=== PATIENT | female | born 1940 | race Caucasian/White ===

== ENCOUNTER → 2016-03-29 | Outpatient (CLI) | payer MEDICARE, OTHER ==
[~2016-03-29] MED LIST: /TIOT18INH INH; ALBUTEROL INH; ALTA1.25 OR; ALTACE; AMIT8CAP4 PO; ASPI81TA63; ASPI81TA83 OR; ENTO3CAP5 PO; LEVO25TA5 PO; LIDO5DIS36 TD; MAGN400C2 PO; MULTCAP PO; PRIL40CA PO; PRIM50TA6 PO; PROT20TA11 OR; PROTPAK; RAMI10CA PO; VIT D 2000 OR; VITA10002 PO; VITA100T5 OR; VITAMIN D50000 UNT; ZOCO5TAB OR; ZOCOR; [UNRECOGNIZED DRUG - OTHER]; calcium with D OR; duoneb INH; spiriva INH; triamcinolone TOP
--- NOTE | 2016-03-29 16:15 | REP ---
CHEST X-RAY, PA AND LATERAL: 03/29/2016. Comparison: CT chest 09/15/2015, chest x-ray 11/20/2014, 02/25/2014. Clinical history: Acute laryngotracheitis. Findings: A dual lead pacer over the left midchest with leads in the right atrium and right ventricle, unchanged. Underlying interstitial fibrosis throughout the chest, greatest in the lower lung zones. There is no pleural effusion, lateral pleural thickening, apical scarring or pneumothorax. Some minor apical pleural thickening noted, without change. There is no superimposed acute infiltrate, cardiomegaly or edema. No aortic aneurysm. There are some calcifications in the arch. Airway intact. Bony thorax shows no compression deformity. Impression: 1. COPD with interstitial fibrotic changes heaviest in the bases, but diffuse and unchanged from previous study. No superimposed acute infiltrate, atelectasis or pleural effusion. 2. There is no cardiomegaly. A dual lead pacer is again seen and unchanged. Signed by Max Ferguson MD 03/29/2016 05:06 P
== END ==
LOC: M RAD 15:07
PROVIDERS: ATTEND Physician Assistant Medical
DX: J44.9 Chronic obstructive pulmonary disease, unspecified (principal); J84.9 Interstitial pulmonary disease, unspecified; J04.2 Acute laryngotracheitis
CPT/HCPCS: 36415; 71020; 80048; 85025; G0463

== ENCOUNTER → 2016-03-29 | Outpatient (REF) | payer MEDICARE, OTHER ==
[2016-03-29 17:27] LABS: BASO % 0.7 % (0.0-1.0); EOS # 0.1 K/mm3 (0.0-0.50); EOS % 2.1 % (0.0-3.0); LARGE UNSTAINED CELL # 0.2 K/mm3 (0.0-0.4); LARGE UNSTAINED CELL % 2.8 % (0.0-4.0); LYMPH % 17.9 % (24.0-44.0); MEAN CORPUSCULAR HEMOGLOBIN 30.2 pg (27.0-33.0); MEAN CORPUSCULAR HGB CONC 32.5 g/dl (32.0-36.5); MEAN CORPUSCULAR VOLUME 92.9 fl (80.0-96.0); MONO # 0.5 K/mm3 (0.0-0.8); MONO % 8.7 % (0.0-5.0); NEUTROPHILS # 3.6 K/mm3 (1.8-7.7); NEUTROPHILS % 67.8 % (36.0-66.0); PLATELET COUNT, AUTOMATED 237 k/mm3 (150-450); RED CELL DISTRIBUTION WIDTH 13.4 % (11.5-14.5); WHITE BLOOD COUNT 5.4 K/mm3 (4.0-10.0)
[2016-03-29 18:43] LABS: ANION GAP 11 MEQ/L (8-16); BLOOD UREA NITROGEN 12 MG/DL (7-18); CALCIUM LEVEL 9.2 MG/DL (8.8-10.2); CARBON DIOXIDE LEVEL 29 MEQ/L (21-32); CHLORIDE LEVEL 92 MEQ/L (98-107); CREATININE FOR GFR 0.81 MG/DL (0.55-1.02); GLOMERULAR FILTRATION RATE > 60.0 (>39); GLUCOSE, FASTING 109 MG/DL (83-110); POTASSIUM SERUM 3.9 MEQ/L (3.5-5.1); SODIUM LEVEL 132 MEQ/L (136-145)
== END ==
LOC: M SFHCPLAZ 14:08
PROVIDERS: ATTEND Physician Assistant Medical
DX: J04.2 Acute laryngotracheitis (principal)

== ENCOUNTER → 2016-04-26 | Outpatient (REF) | payer MEDICARE, OTHER ==
[2016-04-26 13:49] LABS: BASO % 0.8 % (0.0-1.0); EOS # 0.1 K/mm3 (0.0-0.50); EOS % 1.5 % (0.0-3.0); LARGE UNSTAINED CELL # 0.1 K/mm3 (0.0-0.4); LARGE UNSTAINED CELL % 1.4 % (0.0-4.0); LYMPH # 1.2 K/mm3 (1.5-4.5); LYMPH % 19.7 % (24.0-44.0); MEAN CORPUSCULAR HEMOGLOBIN 29.4 pg (27.0-33.0); MEAN CORPUSCULAR HGB CONC 31.3 g/dl (32.0-36.5); MEAN CORPUSCULAR VOLUME 93.9 fl (80.0-96.0); MONO # 0.4 K/mm3 (0.0-0.8); MONO % 6.9 % (0.0-5.0); NEUTROPHILS # 3.9 K/mm3 (1.8-7.7); NEUTROPHILS % 69.7 % (36.0-66.0); PLATELET COUNT, AUTOMATED 245 k/mm3 (150-450); RED CELL DISTRIBUTION WIDTH 13.6 % (11.5-14.5); WHITE BLOOD COUNT 5.6 K/mm3 (4.0-10.0)
[2016-04-26 14:05] LABS: VITAMIN B12 LEVEL 1668 PG/ML (247-911)
[2016-04-26 14:30] LABS: CHOLESTEROL LEVEL 153 MG/DL (<200); FERRITIN 52 NG/ML (8-252); PERCENT SATURATION 18.3 % (13.2-37.4); TOTAL IRON BINDING CAPACITY 372 UG/DL (250-450); TOTAL PROTEIN 8.1 GM/DL (6.4-8.2); TRIGLYCERIDES LEVEL 65 MG/DL (<150)
[2016-04-28 10:51] LABS: ALBUMIN 4.06 GM/DL (3.29-5.55); ALBUMIN % 50.1 % (55.8-66.1); GAMMA GLOBULIN % 20.2 % (11.1-18.8)
[2016-04-29 12:09] LABS: PRETREATED FOLATE FOR RBCFOL 7.3 NG/ML
== END ==
LOC: M SFHCPLAZ 10:40
PROVIDERS: ATTEND Family Medicine
DX: K90.0 Celiac disease (principal); E03.9 Hypothyroidism, unspecified; I10 Essential (primary) hypertension; E78.5 Hyperlipidemia, unspecified; D51.8 Other vitamin B12 deficiency anemias; Z23 Encounter for immunization; Z79.899 Other long term (current) drug therapy
CPT/HCPCS: 36415; 80061; 82607; 82728; 82747; 83036; 83550; 84165; 84439; 84443; 85025; 90670; G0009; G0463

== ENCOUNTER → 2016-05-31 | Outpatient (CLI) | payer MEDICARE, OTHER ==
--- NOTE | 2016-05-31 10:14 | REPMRS ---
Patient History The patient states she has not had a clinical breast exam in over a year. Patient is postmenopausal and has history of ovarian cancer at age 31. No known family history of cancer. Digital Woman Screen Mammo: May 31, 2016 - Exam #: [id number] Bilateral CC and MLO view(s) were taken. Technologist: Shikha Umanzor, Technologist Prior study comparison: December 05, 2013, digital woman screen mammo performed at [facility]. December 04, 2012, digital woman screen mammo performed at [facility] to [facility]. FINDINGS: The breast tissue is heterogeneously dense. This may lower the sensitivity of mammography. There has been no change in the appearance of the mammogram from the prior studies. There is a moderate amount of residual fibroglandular tissue which is fairly symmetric. There is no interval development of dominant mass, areas of architectural distortion, or clustered microcalcification typical of malignancy. ASSESSMENT: BI-RADS/ACR category 1 mammogram. Negative. Recommendation Routine screening mammogram in 1 year (for women over age 40). This mammogram was interpreted with the aid of an FDA-approved computer-aided dectection system. Electronically Signed By: Kendrick Vora MD 05/31/16 [id number]
== END ==
LOC: M WHC 09:28
PROVIDERS: ATTEND Family Medicine
DX: Z12.31 Encounter for screening mammogram for malignant neoplasm of breast (principal)

== ENCOUNTER → 2016-09-19 | Outpatient (REF) | payer MEDICARE, OTHER ==
[~2016-09-19] MED LIST changes: +CALC1TAB74 PO; +COMBAER6 INH; +DONETAB5 PO; +ESCI10TA2 PO; -LIDO5DIS36 TD; +LIDO5DIS41 TD; +MAPA325T3 PO; +MEMA1TAB PO; +OXYC1TAB23 PO; +PERCOCET PO; +RAMI5CA PO; +RECL5INJ2 IV; -VITA100T5 OR; +VITA100T5 PO; +ZOCO40TA PO
== END ==
LOC: M SFHCPLAZ 14:16
PROVIDERS: ATTEND Family Medicine
DX: E78.5 Hyperlipidemia, unspecified (principal); I10 Essential (primary) hypertension; Z53.8 Procedure and treatment not carried out for other reasons

== ENCOUNTER → 2016-10-17 | Outpatient (CLI) | payer MEDICARE, OTHER ==
--- NOTE | 2016-10-19 10:55 | DEXA ---
AP SPINE L1 - L4 1.021 -1.4 0.3 LT FEMUR TOTAL 0.766 -1.9 -0.2 RT FEMUR TOTAL 0.790 -1.7 0.0 TOTAL BODY TOTAL OTHER DUAL FEMUR FRAX* ASSESSMENT Risk factors: Not performed. 10 year probability of fracture Major osteoporotic fracture % Hip fracture % COMMENTS: There is low bone density of the spine and hips. The increased density of the spine does not represent a significant change. The decreased density of the left hip does represent a significant change. The decreased density of the right hip does represent a significant change. The density of the spine has decreased 3.6% since the initial exam on 2002. The spine density has increased 0.6% since the most recent exam on 10/14/2014. The density of the left hip has decreased 14.2% since the initial exam on 2002. The density of the left hip has decreased 3.3% since the most recent exam on 06/2014. The density of the right hip has decreased 9.6% since the initial exam on 2002. The density of the right hip has decreased 2.2% since the most recent exam on . FOLLOW-UP: Recommendation for the next bone density exam: 2 years. GERHARD
== END ==
LOC: M WHC 13:03
PROVIDERS: ATTEND Family Medicine
DX: M85.80 Other specified disorders of bone density and structure, unspecified site (principal)

== ENCOUNTER 2016-12-03 09:21 | Inpatient (IN) | payer MEDICARE, OTHER ==
[2016-12-03] VITALS (8 sets, daily range): BP systolic 98–138; BP diastolic 49–63; O2SAT 93
[~2016-12-03] VITALS: Ht 162.6 cm; Wt 64.8 kg
[2016-12-03] MEDS: MEMANTINE 5MG TABLET (NAMENDA) PO SCH ×2 (09:00→21:07)
[2016-12-03] MEDS: RAMIPRIL 5 MG CAP PO SCH (09:00)
[~2016-12-03 09:21] MED LIST changes: -CALC1TAB74 PO; -COMBAER6 INH; -DONETAB5 PO; -ESCI10TA2 PO; -MAPA325T3 PO; -MEMA1TAB PO; -OXYC1TAB23 PO; -PERCOCET PO; -RAMI5CA PO; -RECL5INJ2 IV; -ZOCO40TA PO
[2016-12-03] MEDS ORDERED: MEMA1TAB PO (09:36)
[2016-12-03] MEDS ORDERED: ESCI10TA2 PO (09:36)
[2016-12-03] MEDS ORDERED: NS 500 ML IV ONE (10:15)
[2016-12-03 10:39] LABS: BASO % 0.5 % (0.0-1.0); EOS # 0.1 K/mm3 (0.0-0.50); LARGE UNSTAINED CELL # 0.1 K/mm3 (0.0-0.4); LARGE UNSTAINED CELL % 1.9 % (0.0-4.0); LYMPH # 0.9 K/mm3 (1.5-4.5); LYMPH % 13.3 % (24.0-44.0); MEAN CORPUSCULAR HEMOGLOBIN 30.3 pg (27.0-33.0); MEAN CORPUSCULAR HGB CONC 34.3 g/dl (32.0-36.5); MEAN CORPUSCULAR VOLUME 88.4 fl (80.0-96.0); MONO # 0.4 K/mm3 (0.0-0.8); MONO % 6.7 % (0.0-5.0); NEUTROPHILS % 76.6 % (36.0-66.0); PLATELET COUNT, AUTOMATED 255 k/mm3 (150-450); RED CELL DISTRIBUTION WIDTH 14.6 % (11.5-14.5); WHITE BLOOD COUNT 6.5 K/mm3 (4.0-10.0)
[2016-12-03 10:58] LABS: ERYTHROCYTE SEDIMENTATION RATE 19 mm/hr (0-30)
[2016-12-03 11:08] LABS: ALBUMIN 3.5 GM/DL (3.2-5.2); ALBUMIN/GLOBULIN RATIO 0.66 (1.00-1.93); ALKALINE PHOSPHATASE 46 U/L (45-117); ALT/SGPT 14 U/L (12-78); ANION GAP 6 MEQ/L (8-16); AST/SGOT 14 U/L (15-37); BILIRUBIN,DIRECT 0.1 MG/DL (0.0-0.2); BILIRUBIN,TOTAL 0.4 MG/DL (0.2-1.0); BLOOD UREA NITROGEN 7 MG/DL (7-18); CALCIUM LEVEL 8.7 MG/DL (8.8-10.2); CARBON DIOXIDE LEVEL 32 MEQ/L (21-32); CHLORIDE LEVEL 94 MEQ/L (98-107); CREATININE FOR GFR 0.68 MG/DL (0.55-1.02); GLOMERULAR FILTRATION RATE > 60.0 (>39); GLUCOSE, FASTING 95 MG/DL (83-110); SODIUM LEVEL 132 MEQ/L (136-145); TOTAL PROTEIN 8.8 GM/DL (6.4-8.2)
[2016-12-03] MEDS ORDERED: ONDANSETRON 4MG/2ML VIAL (J2405) As Ordered ONE (11:42)
[2016-12-03] MEDS ORDERED: MORPHINE 4 MG/ML 1ML SYRINGE IV ONE (11:45)
[2016-12-03] MEDS ORDERED: ONDANSETRON 4MG/2ML VIAL (J2405) IV ONE (11:45)
[2016-12-03] MEDS ORDERED: NS 1,000 ML IV SCH (12:15)
[2016-12-03 12:35] LABS: INR 0.98
--- NOTE | 2016-12-03 13:08 | REP ---
CT BRAIN WITHOUT CONTRAST: CT brain is performed without IV contrast. Comparison 04/28/2015. There is an intraparenchymal hemorrhage in the left occipital lobe measuring 3 x 2 cm. There is a small amount of adjacent extension into the subarachnoid space. There is surrounding edema. There is no midline shift. Subarachnoid blood extends inferiorly along the left tentorium. The ventricles are normal in size. No other areas of hemorrhage are seen. Bone window examination appears essentially unremarkable. IMPRESSION: Intraparenchymal hemorrhage left occipital lobe 3 x 2 cm with a small amount of adjacent subarachnoid hemorrhage. Surrounding edema. No midline shift. Findings conveyed to Krishna Bryd 11:26 a.m. 12/03/2016. Signed by Kendrick Vora MD 12/03/2016 07:37 P
[2016-12-03] MEDS ORDERED: RAMIPRIL 5 MG CAP PO STA (13:18)
[2016-12-03] MEDS ORDERED: ZOCO40TA PO (13:20)
[2016-12-03] MEDS ORDERED: RAMI5CA PO (13:20)
[2016-12-03] MEDS ORDERED: CALC1TAB74 PO (13:20)
[2016-12-03] MEDS ORDERED: DONETAB5 PO (13:20)
[2016-12-03] MEDS ORDERED: COMBAER6 INH (13:20)
[2016-12-03] MEDS ORDERED: COMBIVENT RESPIMAT 100-20MCG INHALER 4GM INH PRN (13:30)
[2016-12-03] MEDS ORDERED: MAGNESIUM OXIDE 400 MG TAB (MAG-OX) PO ONE (13:30)
[2016-12-03] MEDS ORDERED: RECL5INJ2 IV (13:36)
--- NOTE | 2016-12-03 14:52 | HPEPDOC ---
General Date of Admission Dec 03, 2016 at 13:10 Primary Care Physician: Galileo Adams M.D. Attending Physician: REBEKAH DIEHL MD Chief Complaint The patient is a 76-year-old female admitted with a reason for visit of Intracranial Hemorrhage. Source: Patient, Family Exam Limitations: Other (sleepy after receiving morphine) History of Present Illness Ms. Bliss is a 76 y/o woman with a history of Alzheimer's dementia, IFG, HTN, and COPD who presented to the ED today with a 3-day history of a pounding headache. She states the headache is over her entire head. She denies any recent head trauma or falls. Her who is at bedside states she has been unsteady on her feet and more confused than usual for the past 2 days. She does not take aspirin or any other blood thinners. She was found to have an intracranial hemorrhage in the ED and was admitted to ICU per the recommendations of the Neurosurgeon, who also saw her in the ED. She was found to have a UA suggestive of a UTI but denies any recent dysuria, urinary urgency , or urinary frequency. Home Medications Scheduled (Multivitamins) 1 Cap Cap, 1 CAP PO DAILY, (Reported) (Magnesium) 400 Mg Cap, 400 MG PO DAILY, (Reported) Ascorbic Acid (Vitamin C) 100 Mg Tab, 500 MG PO DAILY, (Reported) Budesonide (Entocort EC) 3 Mg Cap, 3 MG PO QHS, (Reported) Calcium/Vitamin D (Calcium/Vitamin D 600-400 mg-Unit) 1 Tab Tab, 1 TAB PO DAILY, (Reported) Cyanocobalamin (Vitamin B-12) 1,000 Mcg Tab, 1,000 MCG PO DAILY, (Reported) Donepezil Hcl (Donepezil HCl) 5 Mg Tab, 5 MG PO QHS, (Reported) Escitalopram Oxalate (Escitalopram Oxalate) 10 Mg Tab, 10 MG PO DAILY, (Reported ) Levothyroxine Sodium (Synthroid) 25 Mcg Tab, 25 MCG PO DAILY, (Reported) Lubiprostone (Amitiza) 8 Mcg Cap, 8 MCG PO QHS, (Reported) CALLED PHARMACY, NO RECORD OF FILLING THIS, PT UNSURE IF THEY STILL TAKE THIS Memantine Hydrochloride (Memantine HCl) 5 Mg Tab, 5 MG PO BID, (Reported) Omeprazole (Prilosec) 40 Mg Cap, 40 MG PO DAILY, (Reported) Primidone (Primidone) 50 Mg Tab, 50 MG PO DAILY, (Reported) Ramipril (Ramipril) 5 Mg Cap, 5 MG PO DAILY, (Reported) Simvastatin - High Dose (Zocor) 40 Mg Tab, 40 MG PO QHS, (Reported) Tiotropium [place] (Spiriva) 6 Puff/Inhaler Cap, 1 PUFF INH DAILY, (Reported) Zoledronic Acid (Reclast) 5 Mg/100 Ml Inj, 5 MG IV ASDIRECTED, (Reported) YEARLY Scheduled PRN Albuterol/Ipratropium (Combivent Respimat 20-100 Mcg/Act) 1 Aer Aer, 1 PUFF INH QID PRN for SHORTNESS OF BREATH, (Reported) Lidocaine (Lidoderm) 5 % Dis, 1 PATCH TD PRN PRN for PAIN, (Reported) applies to back Allergies Coded Allergies: Atorvastatin (Verified Allergy, Unknown, 12/03/16) Calcitonin (Verified Allergy, Unknown, 12/03/16) Gluten Meal (Verified Allergy, Unknown, NEEDS GLUTEN FREE DIET, 12/03/16) Meloxicam (Verified Allergy, Unknown, 12/03/16) Penicillins (Verified Allergy, Unknown, 12/03/16) Penicillins Cross Reactors (Verified Allergy, Unknown, 12/03/16) Risedronate (Verified Allergy, Unknown, 12/03/16) Sulfa Drugs (Verified Allergy, Unknown, 12/03/16) Sulfa Drugs Cross Reactors (Verified Allergy, Unknown, 12/03/16) Past Medical History Medical History 1. Endometrial carcinoma 2. COPD 3. Recurrent diverticulitis 4. Impaired fasting glucose 5. GERD; h/o PUD cleared 01/2010 with EGD 6. Hypertension 7. Hypothyroidism 8. Osteopenia 9. Hyperlipidemia 10. Osteoarthritis 11. Alzheimer's dementia 12. H/o right E. coli pyelonephritis 12/2011 13. 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 PADILLA/BSO 2. Dual pacemaker 02/2014 3. Right inguinal hernia repair 10/2010 4. Bowel resection 2007 5. x3 6. Bilateral cataract surgery Family History Denies family history of seizures or CVA Social History * Smoker: current smoker (0.5 - 1 ppd for 60 years) Alcohol: Denies Drugs: denies Recent Travel/Sick Contacts: Denies: Recent travel, Recent sick contacts Lives with her and her grandson Review of Symptoms Constitutional: Denies: Chills, Fever Eyes: Denies: Pain, Vision change ENT: Reports: Head Aches, Denies: Ear Pain, Dysphagia Skin: Denies: Rash Pulmonary: Reports: Dyspnea (chronic and at baseline), Cough (chronic and at baseline) Cardiovascular: Denies: Chest Pain, Palpitations, Orthopnea, Lt Headedness Gastrointestinal: Denies: Nausea, Vomiting, Abdominal Pain, Diarrhea, Constipation, Melena Genitourinary: Denies: Dysuria, Frequency, Incontinence Hematologic: Denies: Bruising, Bleeding Excessively Neurological: Reports: Confusion, Other Symptoms (admits to feeling unsteady on feet), Denies: Weakness, Numbness, Change in speech Psych: Reports: Mood Normal Physical Examination General Exam: Positive: Alert (sleepy due to morphine but easily awoken), Cooperative, No Acute Distress Eye Exam: Positive: PERRLA, Conjunctiva & lids normal, EOMI, Negative: Sclera icteric ENT Exam: Positive: Atraumatic, Mucous membr. moist/pink, Pharynx Normal, Tympanic Membranes Normal Neck Exam: Positive: Supple, Negative: JVD, thyromegaly Chest Exam: Positive: Clear to auscultation, Normal air movement Heart Exam: Positive: Rate Normal, Normal S1, Normal S2, Negative: Murmurs Abdomen Exam: Positive: Normal bowel sounds, Soft, Tenderness (diffusely tender - normal per patient) Extremity Exam: Negative: Edema Skin Exam: Positive: Nl turgor and temperature, Negative: Rash Neuro Exam: Positive: Normal Speech, Normal Tone, Sensation Intact, Cranial Nerves 3-12 NL, Reflexes 2+ (patellar DTR), Negative: Strength at 5/5 X4 ext (strength 4+/5 in all four extremities), Other (poor coordination with finger to nose testing) Psych Exam: Positive: Mental status NL, Mood NL Vital Signs Vital Signs Date Time Temp Pulse Resp B/P (MAP) Pulse Ox O2 Delivery O2 Flow Rate FiO2 12/03/16 13:06 60 18 97 Room Air 12/03/16 12:55 145/65 (91) 12/03/16 11:30 97.1 Laboratory Data Labs 24H Laboratory Tests 2 12/03/16 10:21: White Blood Count 6.5, Red Blood Count 4.74, Hemoglobin 14.4, Hematocrit 41.9, Mean Corpuscular Volume 88.4, Mean Corpuscular Hemoglobin 30.3, Mean Corpuscular Hemoglobin Concent 34.3, Red Cell Distribution Width 14.6H, Platelet Count 255, Neutrophils (%) (Auto) 76.6H, Lymphocytes (%) (Auto) 13.3L, Monocytes (%) (Auto) 6.7H, Eosinophils (%) (Auto) 1.0, Basophils (%) (Auto) 0.5 , Neutrophils # (Auto) 5.0, Lymphocytes # (Auto) 0.9L, Monocytes # (Auto) 0.4, Eosinophils # (Auto) 0.1, Basophils # (Auto) 0.0, Large Unclassified Cells % 1.9 , Large Unclassified Cells # 0.1, Erythrocyte Sedimentation Rate 19, Prothrombin Time 13.1, Prothromb Time International Ratio 0.98, Activated Partial Thromboplast Time 30.5, Urine Appearance HAZY, Urine Color YELLOW, Urine pH 7.0, Urine Specific [place] 1.010, Urine Protein 1+H, Urine Glucose (UA ) NEGATIVE, Urine Ketones NEGATIVE, Urine Urobilinogen 0.2, Urine Bilirubin NEGATIVE, Urine Leukocyte Esterase 2+H, Urine Blood NEGATIVE, Urine Nitrite POSITIVE, Urine WBC (Auto) 73H, Urine RBC (Auto) 6H, Urine Hyaline Casts (Auto) 0, Urine Bacteria (Auto) 3+H, Urine Squamous Epithelial Cells 0, Urine Sperm ( Auto) , Anion Gap 6L, Glomerular Filtration Rate > 60.0, Calcium Level 8.7L, Aspartate Amino Transf (AST/SGOT) 14L, Alanine Aminotransferase (ALT/SGPT) 14, Alkaline Phosphatase 46, Total Bilirubin 0.4, Direct Bilirubin 0.1, C-Reactive Protein, Quantitative 1.34H, Total Protein 8.8H, Albumin 3.5, Albumin/Globulin Ratio 0.66L CBC/BMP Laboratory Tests 12/03/16 10:21 Red Blood Count 4.74, Mean Corpuscular Volume 88.4, Mean Corpuscular Hemoglobin 30.3, Mean Corpuscular Hemoglobin Concent 34.3, Red Cell Distribution Width 14.6 H, Neutrophils (%) (Auto) 76.6 H, Lymphocytes (%) (Auto) 13.3 L, Monocytes (%) (Auto) 6.7 H, Eosinophils (%) (Auto) 1.0, Basophils (%) (Auto) 0.5, Neutrophils # (Auto) 5.0, Lymphocytes # (Auto) 0.9 L, Monocytes # (Auto) 0.4, Eosinophils # (Auto) 0.1, Basophils # (Auto) 0.0 Microbiology Microbiology 12/03/16 Urine Culture, Received Pending RAD Interpretation STUDY: head CT Rad Actions: Report Reviewed, Wet Read Reviewed Problems (1) Intracranial hemorrhage Status: Acute Response to Treatment: Stable Discussed With: Manager [employer] Problem Specific Plan: Consult Specialist Problem Text: Patient was seen by Neurosurgery in the ED, who recommended medical management. I discussed the case with Neurology (Dr. Soto) who will see the patient in the hospital. Admit to ICU and monitor on telemetry - Continue morphine 2 mg Q2H PRN headache - Hold all anticoagulation and use SCDs/Teds for DVT prophylaxis - Goal BP <140/90 - will restart home ramipril and also give PRN antihypertensives if needed - Per Neuro recs, repeat head CT 12 hours and [address] of head on 12/03/16: Intraparenchymal hemorrhage left occipital lobe 3 x 2 cm with a small amount of adjacent subarachnoid hemorrhage. Surrounding edema. No midline shift. (2) Abnormal urinalysis Status: Acute Problem Text: UA suggests UTI, but patient is asymptomatic - I suspect contamination vs asymptomatic bactiuria. However, as she has a history of pyelonephritis, will treat with ciprofloxacin (nitrofurantoin contraindicated due to age, and patient is allergic to PCN and Sulfa). (3) COPD (chronic obstructive pulmonary disease) Status: Chronic Response to Treatment: Stable Problem Text: Continue home advair, PRN combivent; holding home PO budesonide as 3 mg dose is not on formulary (4) Hypothyroidism Status: Chronic Response to Treatment: Stable Problem Text: Continue home levothyroxine (5) Hypertension Status: Chronic Response to Treatment: Stable Problem Text: see problem #1 (6) Hyperlipidemia Status: Chronic Problem Text: Continue home statin (7) Osteopenia Status: Chronic Problem Text: Receives reclast yearly (8) S/P cardiac pacemaker procedure Status: Chronic Response to Treatment: Stable (9) Osteoarthritis Status: Chronic Response to Treatment: Stable (10) GERD (gastroesophageal reflux disease) Status: Chronic Response to Treatment: Stable Problem Text: Continue home PPI (11) History of endometrial cancer Status: Chronic Response to Treatment: Stable Plan / VTE VTE Prophylaxis Ordered?: No VTE Exclusion Pharmacological: Active Bleeding REBEKAH DIEHL MD Dec 03, 2016 14:52
[2016-12-03] MEDS: ADVAIR HFA 230/21MCG INHALER INH SCH ×2 (15:00→19:52)
[2016-12-03] MEDS: MAGNESIUM OXIDE 400 MG TAB (MAG-OX) PO SCH (16:03)
[2016-12-03] MEDS: OMEPRAZOLE 20 MG CAP PO SCH (17:45)
[2016-12-03] MEDS: LEVOTHYROXINE 25MCG TABLET (0.025MG) PO SCH (17:45)
[2016-12-03] MEDS: CIPROFLOXACIN 250 MG TAB PO SCH (17:46)
[2016-12-03] MEDS: PRIMIDONE 50 MG TAB PO SCH (17:46)
[2016-12-03] MEDS ORDERED: hydrALAZINE INJ 20 MG/ML VIAL IV PRN (18:00)
[2016-12-03] MEDS ORDERED: INFLUENZA VIRUS VACCINE HIGH DOSE 0.5 ML SYRINGE (90662) IM SCH (20:15)
[2016-12-03] MEDS ORDERED: NITROFURANTOIN (MACROBID) 100 MG CAP PO SCH (21:00)
[2016-12-03] MEDS: SIMVASTATIN 40 MG TAB PO SCH (21:07)
[2016-12-03] MEDS: DONEPEZIL 5 MG TAB PO SCH (21:07)
[2016-12-04] VITALS (19 sets, daily range): BP systolic 112–157; BP diastolic 53–72
[2016-12-04 05:02] LABS: MEAN CORPUSCULAR HEMOGLOBIN 29.8 pg (27.0-33.0); MEAN CORPUSCULAR VOLUME 87.7 fl (80.0-96.0); RED CELL DISTRIBUTION WIDTH 14.7 % (11.5-14.5); WHITE BLOOD COUNT 6.8 K/mm3 (4.0-10.0)
[2016-12-04 05:10] LABS: ANION GAP 8 MEQ/L (8-16); CALCIUM LEVEL 8.9 MG/DL (8.8-10.2); CARBON DIOXIDE LEVEL 30 MEQ/L (21-32); CHLORIDE LEVEL 98 MEQ/L (98-107); CREATININE FOR GFR 0.76 MG/DL (0.55-1.02); GLOMERULAR FILTRATION RATE > 60.0 (>39); GLUCOSE, FASTING 112 MG/DL (83-110); MAGNESIUM LEVEL 1.9 MG/DL (1.8-2.4); POTASSIUM SERUM 4.6 MEQ/L (3.5-5.1); SODIUM LEVEL 136 MEQ/L (136-145)
[2016-12-04 05:29] LABS: BLOOD UREA NITROGEN 12 MG/DL (7-18)
[2016-12-04] MEDS: LEVOTHYROXINE 25MCG TABLET (0.025MG) PO SCH (05:59)
[2016-12-04] MEDS: CIPROFLOXACIN 250 MG TAB PO SCH ×2 (05:59→17:16)
[2016-12-04] MEDS: MORPHINE 2 MG/ML 1ML SYRINGE IV PRN ×3 (06:06→18:39)
[2016-12-04] MEDS: ADVAIR HFA 230/21MCG INHALER INH SCH ×2 (08:06→19:14)
--- NOTE | 2016-12-04 08:18 | IPNPDOC ---
Subjective Date Seen The patient was seen on 12/04/16. Subjective Chief Complaint/HPI The patient is a 76-year-old female admitted with a reason for visit of Intracranial Hemorrhage. Events since last encounter Patient states she feels better today; her thinking is clearer. Headache is still present but is less severe. Constitutional: Denies: Chills, Fever ENT: Reports: Head Aches Pulmonary: Denies: Dyspnea, Cough Cardiovascular: Denies: Chest Pain, Palpitations Gastrointestinal: Denies: Nausea, Vomiting, Abdominal Pain, Diarrhea Neurological: Denies: Weakness, Numbness, Change in speech, Confusion Objective Physical Examination General Exam: Positive: Alert, Cooperative, No Acute Distress Eye Exam: Positive: PERRLA, EOMI, Negative: Sclera icteric ENT Exam: Positive: Atraumatic, Mucous membr. moist/pink, Pharynx Normal, Tympanic Membranes Normal Neck Exam: Negative: JVD Chest Exam: Positive: Clear to auscultation, Normal air movement Heart Exam: Positive: Rate Normal, Normal S1, Normal S2, Negative: Murmurs Abdomen Exam: Positive: Normal bowel sounds, Soft, Tenderness (diffusely tender - normal per patient) Extremity Exam: Negative: Edema Skin Exam: Positive: Nl turgor and temperature, Negative: Rash Neuro Exam: Positive: Normal Speech, Normal Tone, Sensation Intact, Cranial Nerves 3-12 NL, Reflexes 2+ (patellar DTR), Negative: Strength at 5/5 X4 ext (strength 4+/5 in all four extremities), Other (coordination improved today with finger to nose testing) Psych Exam: Positive: Mental status NL, Mood NL Assessment /Plan Problems (1) Intracranial hemorrhage Status: Acute Response to Treatment: Stable Discussed With: [employer] Problem Specific Plan: Consult Specialist Problem Text: Repeat Head CT is schedule for this morning per Neuro recs. Symptoms and exam are improved today. - Continue morphine 2 mg Q2H PRN headache - Hold all anticoagulation and use SCDs/Teds for DVT prophylaxis - Goal BP <140/90 - on home ramipril with hydralazine ordered PRN; has not received hydralazine yet - a few elevated BPs were related to a headache, and BP improved after she received morphine. - Neuro and Neurosurgery are consulted CT of head on 12/03/16 AM: Intraparenchymal hemorrhage left occipital lobe 3 x 2 cm with a small amount of adjacent subarachnoid hemorrhage. Surrounding edema. No midline shift. CT of head 12/03/16 PM: unchanged from prior. (2) Abnormal urinalysis Status: Acute Problem Text: UA suggests UTI, but patient is asymptomatic - I suspect contamination vs asymptomatic bactiuria. However, as she has a history of pyelonephritis, will treat with ciprofloxacin (nitrofurantoin contraindicated due to age, and patient is allergic to PCN and Sulfa). - Urine culture is pending. (3) COPD (chronic obstructive pulmonary disease) Status: Chronic Response to Treatment: Stable Problem Text: Continue home advair, PRN combivent; holding home PO budesonide as 3 mg dose is not on formulary (4) Hypothyroidism Status: Chronic Response to Treatment: Stable Problem Text: Continue home levothyroxine (5) Hypertension Status: Chronic Response to Treatment: Stable Problem Text: see problem #1 (6) Hyperlipidemia Status: Chronic Problem Text: Continue home statin (7) S/P cardiac pacemaker procedure Status: Chronic Response to Treatment: Stable (8) GERD (gastroesophageal reflux disease) Status: Chronic Response to Treatment: Stable Problem Text: Continue home PPI Plan/VTE VTE Prophylaxis Ordered?: No VTE Exclusion Pharmacological: Bleeding Risk VS, I&O, 24H, Fishbone Vital Signs/I&O Vital Signs Date Time Temp Pulse Resp B/P (MAP) Pulse Ox O2 Delivery O2 Flow Rate FiO2 12/04/16 06:30 60 131/63 (85) 96 Nasal Cannula 1.0 12/04/16 06:16 22 12/04/16 04:00 98.5 Laboratory Data 24H LABS Laboratory Tests 2 12/03/16 10:21: White Blood Count 6.5, Red Blood Count 4.74, Hemoglobin 14.4, Hematocrit 41.9, Mean Corpuscular Volume 88.4, Mean Corpuscular Hemoglobin 30.3, Mean Corpuscular Hemoglobin Concent 34.3, Red Cell Distribution Width 14.6H, Platelet Count 255, Neutrophils (%) (Auto) 76.6H, Lymphocytes (%) (Auto) 13.3L, Monocytes (%) (Auto) 6.7H, Eosinophils (%) (Auto) 1.0, Basophils (%) (Auto) 0.5 , Neutrophils # (Auto) 5.0, Lymphocytes # (Auto) 0.9L, Monocytes # (Auto) 0.4, Eosinophils # (Auto) 0.1, Basophils # (Auto) 0.0, Large Unclassified Cells % 1.9 , Large Unclassified Cells # 0.1, Erythrocyte Sedimentation Rate 19, Prothrombin Time 13.1, Prothromb Time International Ratio 0.98, Activated Partial Thromboplast Time 30.5, Urine Appearance HAZY, Urine Color YELLOW, Urine pH 7.0, Urine Specific [place] 1.010, Urine Protein 1+H, Urine Glucose (UA ) NEGATIVE, Urine Ketones NEGATIVE, Urine Urobilinogen 0.2, Urine Bilirubin NEGATIVE, Urine Leukocyte Esterase 2+H, Urine Blood NEGATIVE, Urine Nitrite POSITIVE, Urine WBC (Auto) 73H, Urine RBC (Auto) 6H, Urine Hyaline Casts (Auto) 0, Urine Bacteria (Auto) 3+H, Urine Squamous Epithelial Cells 0, Urine Sperm ( Auto) , Anion Gap 6L, Glomerular Filtration Rate > 60.0, Calcium Level 8.7L, Aspartate Amino Transf (AST/SGOT) 14L, Alanine Aminotransferase (ALT/SGPT) 14, Alkaline Phosphatase 46, Total Bilirubin 0.4, Direct Bilirubin 0.1, C-Reactive Protein, Quantitative 1.34H, Total Protein 8.8H, Albumin 3.5, Albumin/Globulin Ratio 0.66L 12/04/16 04:11: Anion Gap 8, Glomerular Filtration Rate > 60.0, Calcium Level 8.9, Blood Urea Nitrogen 12#, Creatinine 0.76, Sodium Level 136, Potassium Level 4.6, Chloride Level 98, Carbon Dioxide Level 30, Magnesium Level 1.9 CBC/BMP Laboratory Tests 12/03/16 10:21 Red Blood Count 4.74, Mean Corpuscular Volume 88.4, Mean Corpuscular Hemoglobin 30.3, Mean Corpuscular Hemoglobin Concent 34.3, Red Cell Distribution Width 14.6 H, Neutrophils (%) (Auto) 76.6 H, Lymphocytes (%) (Auto) 13.3 L, Monocytes (%) (Auto) 6.7 H, Eosinophils (%) (Auto) 1.0, Basophils (%) (Auto) 0.5, Neutrophils # (Auto) 5.0, Lymphocytes # (Auto) 0.9 L, Monocytes # (Auto) 0.4, Eosinophils # (Auto) 0.1, Basophils # (Auto) 0.0 12/04/16 04:11 Red Blood Count 4.06, Mean Corpuscular Volume 87.7, Mean Corpuscular Hemoglobin 29.8, Mean Corpuscular Hemoglobin Concent 34.0, Red Cell Distribution Width 14.7 H, Calcium Level 8.9 Microbiology Microbiology 12/03/16 Urine Culture, Received Pending REBEKAH DIEHL MD Dec 04, 2016 08:18
[2016-12-04] MEDS: PRIMIDONE 50 MG TAB PO SCH (08:26)
[2016-12-04] MEDS: MEMANTINE 5MG TABLET (NAMENDA) PO SCH ×2 (08:26→20:42)
[2016-12-04] MEDS: OMEPRAZOLE 20 MG CAP PO SCH (08:26)
[2016-12-04] MEDS: MAGNESIUM OXIDE 400 MG TAB (MAG-OX) PO SCH (08:27)
[2016-12-04] MEDS: RAMIPRIL 5 MG CAP PO SCH (08:27)
--- NOTE | 2016-12-04 13:23 | REP ---
CT BRAIN WITHOUT CONTRAST: CT brain is compared without IV contrast. Comparison made with prior two studies performed 12/03/2016. Once again, the known intraparenchymal hemorrhage in the left occipital lobe is visualized. Size is unchanged. There is mild adjacent subarachnoid hemorrhage. There is associated surrounding low density edema. There is no midline shift. There is no midline shift. There is effacement of adjacent sulci in the left occipital region. Subarachnoid hemorrhage extends inferiorly along the left tentorium, unchanged. The ventricular system is unchanged in size. There are no new findings. IMPRESSION: Stable exam. Signed by Kendrick Vora MD 12/04/2016 07:16 P
[2016-12-04] MEDS: ACETAMINOPHEN TAB 650MG DOSE (2X325MG) PO PRN (16:43)
[2016-12-04] MEDS: SIMVASTATIN 40 MG TAB PO SCH (20:42)
[2016-12-04] MEDS: DONEPEZIL 5 MG TAB PO SCH (20:42)
[2016-12-05] VITALS (16 sets, daily range): BP systolic 89–178; BP diastolic 47–73
[2016-12-05] MEDS: MORPHINE 2 MG/ML 1ML SYRINGE IV PRN ×5 (02:46→12:47)
[2016-12-05 04:45] LABS: MEAN CORPUSCULAR HEMOGLOBIN 29.7 pg (27.0-33.0); MEAN CORPUSCULAR HGB CONC 33.6 g/dl (32.0-36.5); MEAN CORPUSCULAR VOLUME 88.5 fl (80.0-96.0); RED CELL DISTRIBUTION WIDTH 14.8 % (11.5-14.5); WHITE BLOOD COUNT 6.3 K/mm3 (4.0-10.0)
[2016-12-05 04:55] LABS: ANION GAP 4 MEQ/L (8-16); BLOOD UREA NITROGEN 8 MG/DL (7-18); CALCIUM LEVEL 8.6 MG/DL (8.8-10.2); CARBON DIOXIDE LEVEL 34 MEQ/L (21-32); CHLORIDE LEVEL 93 MEQ/L (98-107); CREATININE FOR GFR 0.64 MG/DL (0.55-1.02); GLOMERULAR FILTRATION RATE > 60.0 (>39); GLUCOSE, FASTING 114 MG/DL (83-110); POTASSIUM SERUM 4.3 MEQ/L (3.5-5.1); SODIUM LEVEL 131 MEQ/L (136-145)
[2016-12-05] MEDS: LEVOTHYROXINE 25MCG TABLET (0.025MG) PO SCH (05:30)
[2016-12-05] MEDS: CIPROFLOXACIN 250 MG TAB PO SCH ×2 (05:30→17:17)
[2016-12-05] MEDS: ACETAMINOPHEN TAB 650MG DOSE (2X325MG) PO PRN ×2 (07:44→19:14)
--- NOTE | 2016-12-05 08:07 | CR ---
DATE OF CONSULTATION: 12/04/2016 REFERRING PHYSICIAN: Deann Hernandez MD REASON FOR CONSULTATION: Left-sided occipital cerebral hemorrhage. HISTORY OF PRESENT ILLNESS: Kayla Bliss is a 76-year-old woman with history of Alzheimer's dementia for last 3 years who presented [facility] with confusion and new onset headache. She was found to have left occipital 3 x 2 cm intracerebral hemorrhage. She denies any head trauma. She does not take aspirin or other types of blood thinners or anticoagulants. She was also found to have urinary tract infection without any symptoms. She denies any falls or loss of consciousness. She complains of neck pain. She also has intermittent back pain. She denies dysphagia, dysarthria, diplopia or urinary incontinence. She has decreased vision on the right side likely related to visual field deficit from her hemorrhage in left occipital head region. PAST MEDICAL HISTORY: Endometrial carcinoma, chronic obstructive pulmonary disease (COPD), diverticulitis, osteopenia, dyslipidemia, osteoarthritis, Alzheimer's dementia, chronic neck and back pain due to cervical and lumbosacral disc disease, history of sick sinus syndrome with paroxysmal supraventricular tachycardia (SVT) and patient is status post pacemaker placement, hysterectomy, inguinal hernia repair, bowel resection, cataract surgery. SOCIAL HISTORY: She denies smoking, alcohol or illicit drugs. ALLERGIES: LIPITOR, MOBIC, PENICILLIN, SULFA, RISEDRONATE. FAMILY HISTORY: Noncontributory. REVIEW OF SYSTEMS: All systems were reviewed and found to be noncontributory except as mentioned in history present illness. PHYSICAL EXAMINATION: Pulse 60, respiratory 18, blood pressure 145/55, 97% saturation on room air. Heart: Regular rate and rhythm. Lungs: Clear to auscultation. Abdomen: Soft, nontender, nondistended. Neurological exam: Patient is awake, alert, oriented to person, place, year, and name of president. Her speech is normal. She has right-sided visual field deficit. Extraocular muscles are intact. No facial weakness. Tongue and uvular are midline. 5/5 strength in all four extremities. Deep tendon flexes are 1+ throughout. Normal sensation. Gait could not be tested. No gross musculoskeletal abnormalities. No skin rash. Ear, nose, throat examination is within normal limits. DIAGNOSTIC STUDIES: CT scan of her head on admission and today were reviewed and showed stable 3 x 2 cm left occipital cerebral hemorrhage. ASSESSMENT: 1. Left occipital 3 x 2 cm cerebral hemorrhage. 2. Possible amyloid angiopathy. 3. Metastatic disease cannot be exclude when there is no known primary tumor. PLAN: 1. Keep systolic blood pressure below 140 and diastolic blood pressure below 90. 2. Avoid aspirin, heparin or Lovenox. 3. Physical and occupational therapy. 4. Use thromboembolic deterrent (VIPUL) stockings for deep venous thrombosis (DVT) prophylaxis. 5. Neurosurgery does not recommend surgical intervention. 6. Follow with our office in 1 month after hospital discharge.
[2016-12-05] MEDS: ADVAIR HFA 230/21MCG INHALER INH SCH ×2 (08:09→19:30)
[2016-12-05] MEDS: MAGNESIUM OXIDE 400 MG TAB (MAG-OX) PO SCH (08:54)
[2016-12-05] MEDS: PRIMIDONE 50 MG TAB PO SCH (08:54)
[2016-12-05] MEDS: OMEPRAZOLE 20 MG CAP PO SCH (08:54)
[2016-12-05] MEDS: MEMANTINE 5MG TABLET (NAMENDA) PO SCH ×2 (08:54→20:05)
[2016-12-05] MEDS ORDERED: MORPHINE 2 MG/ML 1ML SYRINGE IV ONE (09:30)
--- NOTE | 2016-12-05 09:37 | IPNPDOC ---
Subjective Date Seen The patient was seen on 12/05/16. Subjective Chief Complaint/HPI The patient is a 76-year-old female admitted with a reason for visit of Intracranial Hemorrhage. Events since last encounter family at bedside. c/o overall feeling poorly. C/O YANG. Given hydralazine overnight for BP 149/73. BP dropped to 99/48, 89/47. Now 120s/70s. HR stable. Constitutional: Denies: Chills, Fever, Night Sweats ENT: Reports: Head Aches Pulmonary: Denies: Dyspnea, Cough Cardiovascular: Denies: Chest Pain, Palpitations, Orthopnea, Paroxysmal Noc. Dyspnea, Lt Headedness Gastrointestinal: Denies: Nausea, Vomiting, Abdominal Pain, Diarrhea, Constipation Genitourinary: Denies: Dysuria, Frequency, Incontinence, Retention Objective Physical Examination General Exam: Positive: Alert, Cooperative, No Acute Distress Eye Exam: Positive: PERRLA, EOMI, Negative: Sclera icteric ENT Exam: Positive: Atraumatic, Mucous membr. moist/pink, Pharynx Normal, Tympanic Membranes Normal Neck Exam: Negative: JVD Chest Exam: Positive: Clear to auscultation, Normal air movement Heart Exam: Positive: Rate Normal, Normal S1, Normal S2, Negative: Murmurs Abdomen Exam: Positive: Normal bowel sounds, Soft, Tenderness (diffusely tender - normal per patient) Extremity Exam: Negative: Edema Skin Exam: Positive: Nl turgor and temperature, Negative: Rash Neuro Exam: Positive: Normal Speech, Normal Tone, Sensation Intact, Cranial Nerves 3-12 NL, Reflexes 2+ (patellar DTR), Negative: Strength at 5/5 X4 ext (strength 4+/5 in all four extremities), Other (coordination improved today with finger to nose testing) Psych Exam: Positive: Mental status NL, Mood NL Assessment /Plan Problems (1) Intracranial hemorrhage Status: Acute Response to Treatment: Stable Discussed With: Clay Artisan Problem Specific Plan: Consult Specialist Problem Text: 12/04/16: stable CTs. Residual YANG noted. Tylenol and morphine prn given. BPs with severe drop with Hydralazine. DC Hydralazine. Monitor BPs. May consider increase in Altace to 10 mg if BP increases above 140/09 12/03/16: Repeat Head CT is schedule for this morning per Neuro recs. Symptoms and exam are improved today. - Continue morphine 2 mg Q2H PRN headache - Hold all anticoagulation and use SCDs/Teds for DVT prophylaxis - Goal BP <140/90 - on home ramipril with hydralazine ordered PRN; has not received hydralazine yet - a few elevated BPs were related to a headache, and BP improved after she received morphine. - Neuro is consulted (Dr. Soto) - Neurosurgery signed off today CT of head on 12/03/16 AM: Intraparenchymal hemorrhage left occipital lobe 3 x 2 cm with a small amount of adjacent subarachnoid hemorrhage. Surrounding edema. No midline shift. CT of head 12/03/16 PM: unchanged from prior. (2) Abnormal urinalysis Status: Acute Problem Text: 11/24/16: + for e.coli. Currently on Cipro. UA suggests UTI, but patient is asymptomatic - I suspect contamination vs asymptomatic bactiuria. However, as she has a history of pyelonephritis, will treat with ciprofloxacin (nitrofurantoin contraindicated due to age, and patient is allergic to PCN and Sulfa). - Urine culture is pending. (3) COPD (chronic obstructive pulmonary disease) Status: Chronic Response to Treatment: Stable Problem Text: Continue home advair, PRN combivent; holding home PO budesonide as 3 mg dose is not on formulary (4) Hypothyroidism Status: Chronic Response to Treatment: Stable Problem Text: Continue home levothyroxine (5) Hypertension Status: Chronic Response to Treatment: Stable Problem Text: see problem #1 (6) Hyperlipidemia Status: Chronic Problem Text: Continue home statin (7) S/P cardiac pacemaker procedure Status: Chronic Response to Treatment: Stable (8) GERD (gastroesophageal reflux disease) Status: Chronic Response to Treatment: Stable Problem Text: Continue home PPI Plan/VTE VTE Prophylaxis Ordered?: No VTE Exclusion Pharmacological: Bleeding Risk Plan Family Medicine Attending Note: I saw and examined Ms. Bliss this morning; I discussed her case with VIRGIL Siu and I agree with her note as documented. Repeat head CT this morning was unchanged from prior. PT/OT consulted today - will await recommendations. Patient has persistent headache - I discussed with her nurse that this will likely persist for some time due to her intracranial hemorrhage. Will d/c morphine and given acetaminophen and hydrocodone for pain PRN. Will need to determine dispo planning - acute rehab vs. SNF. (KES). VS, I&O, 24H, Fishbone Vital Signs/I&O Vital Signs Date Time Temp Pulse Resp B/P (MAP) Pulse Ox O2 Delivery O2 Flow Rate FiO2 12/05/16 09:00 60 19 122/58 (79) Nasal Cannula 0.5 12/05/16 08:00 97.2 12/05/16 04:41 95 I&O- Last 24 Hours up to 6 AM 12/06/16 06:00 Intake Total 50 ml Output Total 300 ml Balance -250 ml Laboratory Data 24H LABS Laboratory Tests 2 12/05/16 04:05: Anion Gap 4L, Glomerular Filtration Rate > 60.0, Blood Urea Nitrogen 8, Creatinine 0.64, Sodium Level 131L, Potassium Level 4.3, Chloride Level 93L, Carbon Dioxide Level 34H, Calcium Level 8.6L CBC/BMP Laboratory Tests 12/05/16 04:05 Red Blood Count 4.17, Mean Corpuscular Volume 88.5, Mean Corpuscular Hemoglobin 29.7, Mean Corpuscular Hemoglobin Concent 33.6, Red Cell Distribution Width 14.8 H, Calcium Level 8.6 L Microbiology Microbiology 12/03/16 Urine Culture - Final, Complete Escherichia Coli Jenna Obregon Dec 05, 2016 09:37 REBEKAH DIEHL MD Dec 05, 2016 13:20
[2016-12-05] MEDS: RAMIPRIL 5 MG CAP PO SCH (11:14)
--- NOTE | 2016-12-05 12:31 | REP ---
CT Head without contrast HISTORY: Intracranial hemorrhage COMPARISON: 11/1969 04:17 An acute intraparenchymal hematoma is present in the left parietal and occipital lobes. Hematoma measures 3 cm in transverse by 2.1 cm in AP dimensions and is unchanged in size compared to the previous study. A small amount of surrounding edema is present. There is mass effect with partial effacement of the overlying cortical sulci. There is no midline shift. There is acute infarct or midline shift. The ventricular system is normal in appearance. There is no extra cerebral collection. A small amount of subarachnoid hemorrhage is present. There is no fracture. Minimal mucosal thickening is present in the left sphenoid sinus. IMPRESSION: 1. Acute left parietal occipital lobe intraparenchymal hematoma unchanged in size compared to the previous study. 2. Small amount of subarachnoid hemorrhage unchanged compared to the previous study. Signed by Jam Pollard MD 12/05/2016 12:23 P
[2016-12-05] MEDS ORDERED: MORPHINE 2 MG/ML 1ML SYRINGE IV PRN (13:15)
[2016-12-05] MEDS: SIMVASTATIN 40 MG TAB PO SCH (20:04)
[2016-12-05] MEDS: DONEPEZIL 5 MG TAB PO SCH (20:05)
[2016-12-05] MEDS: NORCO, ANEXSIA 5/325MG TABLET (HYDROcodone/ACETAMINOPHEN) PO PRN (22:20)
[2016-12-06] VITALS: BP 130/60
[2016-12-06 04:00] VITALS: BP 144/65
[2016-12-06] MEDS: NORCO, ANEXSIA 5/325MG TABLET (HYDROcodone/ACETAMINOPHEN) PO PRN ×3 (04:00→21:17)
[2016-12-06 05:14] LABS: MEAN CORPUSCULAR HEMOGLOBIN 28.5 pg (27.0-33.0); MEAN CORPUSCULAR HGB CONC 32.8 g/dl (32.0-36.5); RED CELL DISTRIBUTION WIDTH 15.7 % (11.5-14.5); WHITE BLOOD COUNT 5.8 10^3/uL (4.0-10.0)
[2016-12-06] MEDS: CIPROFLOXACIN 250 MG TAB PO SCH ×2 (05:27→17:51)
[2016-12-06] MEDS: LEVOTHYROXINE 25MCG TABLET (0.025MG) PO SCH (05:27)
[2016-12-06 05:37] LABS: ANION GAP 5 MEQ/L (8-16); BLOOD UREA NITROGEN 12 MG/DL (7-18); CALCIUM LEVEL 9.1 MG/DL (8.8-10.2); CARBON DIOXIDE LEVEL 31 MEQ/L (21-32); CHLORIDE LEVEL 93 MEQ/L (98-107); CREATININE FOR GFR 0.58 MG/DL (0.55-1.02); GLOMERULAR FILTRATION RATE > 60.0 (>39); GLUCOSE, FASTING 109 MG/DL (83-110); POTASSIUM SERUM 4.2 MEQ/L (3.5-5.1); SODIUM LEVEL 129 MEQ/L (136-145)
[2016-12-06 08:00] VITALS: BP 156/70
[2016-12-06] MEDS: ADVAIR HFA 230/21MCG INHALER INH SCH ×2 (08:23→19:10)
[2016-12-06] MEDS: OMEPRAZOLE 20 MG CAP PO SCH (09:05)
[2016-12-06] MEDS: RAMIPRIL 5 MG CAP PO SCH (09:06)
[2016-12-06] MEDS: MAGNESIUM OXIDE 400 MG TAB (MAG-OX) PO SCH (09:06)
[2016-12-06] MEDS: MEMANTINE 5MG TABLET (NAMENDA) PO SCH ×2 (09:06→21:16)
[2016-12-06] MEDS: PRIMIDONE 50 MG TAB PO SCH (09:06)
[2016-12-06 12:00] VITALS: BP 119/56
--- NOTE | 2016-12-06 12:03 | IPNPDOC ---
Subjective Date Seen The patient was seen on 12/06/16. Subjective Chief Complaint/HPI The patient is a 76-year-old female admitted with a reason for visit of Intracranial Hemorrhage. Events since last encounter Reports headache - pain meds help some Constitutional: Denies: Chills, Fever ENT: Reports: Head Aches Pulmonary: Denies: Dyspnea, Cough Cardiovascular: Denies: Chest Pain, Palpitations, Orthopnea Gastrointestinal: Denies: Nausea, Vomiting, Abdominal Pain, Diarrhea, Constipation Objective Physical Examination General Exam: Positive: Alert, Cooperative, No Acute Distress Eye Exam: Negative: Sclera icteric Chest Exam: Positive: Clear to auscultation, Normal air movement Heart Exam: Positive: Rate Normal, Normal S1, Normal S2, Negative: Murmurs Abdomen Exam: Positive: Normal bowel sounds, Soft, Negative: Tenderness Extremity Exam: Negative: Edema Skin Exam: Negative: Rash Neuro Exam: Positive: Normal Speech Psych Exam: Positive: Mental status NL Assessment /Plan Problems (1) Physical deconditioning Status: Acute Problem Text: 12/06 PT not safe for home dc-dc to rehab only (2) Intracranial hemorrhage Status: Acute Response to Treatment: Stable Discussed With: Paste Maker Problem Specific Plan: Consult Specialist Problem Text: 12/05/16 - BP 130 - 156 last 24 hours - I will increase Ramipril slightly to maintain BP less than 140. (Had severe drop in BP with Hydralazine) Still with mild residual headache - using Hydrocodone or Tylenol prn 12/04/16: stable CTs. Residual YANG noted. Tylenol and morphine prn given. BPs with severe drop with Hydralazine. DC Hydralazine. Monitor BPs. May consider increase in Altace to 10 mg if BP increases above 140/09 12/03/16: Repeat Head CT is schedule for this morning per Neuro recs. Symptoms and exam are improved today. - Continue morphine 2 mg Q2H PRN headache - Hold all anticoagulation and use SCDs/Teds for DVT prophylaxis - Goal BP <140/90 - on home ramipril with hydralazine ordered PRN; has not received hydralazine yet - a few elevated BPs were related to a headache, and BP improved after she received morphine. - Neuro is consulted (Dr. Soto) - Neurosurgery signed off today CT of head on 12/03/16 AM: Intraparenchymal hemorrhage left occipital lobe 3 x 2 cm with a small amount of adjacent subarachnoid hemorrhage. Surrounding edema. No midline shift. CT of head 12/03/16 PM: unchanged from prior. (3) Abnormal urinalysis Status: Acute Problem Text: 11/24/16: + for e.coli. Currently on Cipro. UA suggests UTI, but patient is asymptomatic - I suspect contamination vs asymptomatic bactiuria. However, as she has a history of pyelonephritis, will treat with ciprofloxacin (nitrofurantoin contraindicated due to age, and patient is allergic to PCN and Sulfa). - Urine culture is pending. (4) COPD (chronic obstructive pulmonary disease) Status: Chronic Response to Treatment: Stable Problem Text: Continue home advair, PRN combivent; holding home PO budesonide as 3 mg dose is not on formulary (5) Hypothyroidism Status: Chronic Response to Treatment: Stable Problem Text: Continue home levothyroxine (6) Hypertension Status: Chronic Response to Treatment: Stable Problem Text: see problem #1 (7) Hyperlipidemia Status: Chronic Problem Text: Continue home statin (8) S/P cardiac pacemaker procedure Status: Chronic Response to Treatment: Stable (9) GERD (gastroesophageal reflux disease) Status: Chronic Response to Treatment: Stable Problem Text: Continue home PPI Plan/VTE VTE Prophylaxis Ordered?: No VTE Exclusion Pharmacological: Bleeding Risk Plan Therapy: PT, OT (move to floor. Continue Pt - may need ST rehab) VS, I&O, 24H, Fishbone Vital Signs/I&O Vital Signs Date Time Temp Pulse Resp B/P (MAP) Pulse Ox O2 Delivery O2 Flow Rate FiO2 12/06/16 09:06 156/70 12/06/16 08:47 17 12/06/16 08:00 97.5 60 93 Room Air 12/05/16 17:00 0.5 I&O- Last 24 Hours up to 6 AM 12/07/16 06:00 Intake Total 240 ml Output Total 500 ml Balance -260 ml Laboratory Data 24H LABS Laboratory Tests 2 12/06/16 04:50: Anion Gap 5L, Glomerular Filtration Rate > 60.0, Blood Urea Nitrogen 12, Creatinine 0.58, Sodium Level 129L, Potassium Level 4.2, Chloride Level 93L, Carbon Dioxide Level 31, Calcium Level 9.1 CBC/BMP Laboratory Tests 12/06/16 04:50 Red Blood Count 4.14, Mean Corpuscular Volume 87.0, Mean Corpuscular Hemoglobin 28.5, Mean Corpuscular Hemoglobin Concent 32.8, Red Cell Distribution Width 15.7 H, Calcium Level 9.1 Microbiology Microbiology 12/03/16 Urine Culture - Final, Complete Escherichia Coli MERNA DUNLAP PA-C Dec 06, 2016 12:03 Galileo Adams M.D. Dec 06, 2016 17:27
[2016-12-06] MEDS: DOCUSATE SODIUM 100 MG CAP PO SCH ×2 (13:03→21:16)
[2016-12-06] MEDS: MIRALAX *UNIT DOSE* 17GM PACKET PO SCH (13:03)
[2016-12-06] MEDS: ACETAMINOPHEN TAB 650MG DOSE (2X325MG) PO PRN (15:19)
[2016-12-06 16:00] VITALS: BP 143/63
[2016-12-06] MEDS ORDERED: BISACODYL 10 MG SUPP PR PRN (17:45)
[2016-12-06 20:00] VITALS: BP 153/66
[2016-12-06] MEDS: SIMVASTATIN 40 MG TAB PO SCH (21:16)
[2016-12-06] MEDS: DONEPEZIL 5 MG TAB PO SCH (21:16)
[2016-12-07] MEDS: NORCO, ANEXSIA 5/325MG TABLET (HYDROcodone/ACETAMINOPHEN) PO PRN ×3 (02:59→14:11)
[2016-12-07 06:00] VITALS: BP 171/71
[2016-12-07] MEDS: LEVOTHYROXINE 25MCG TABLET (0.025MG) PO SCH (06:01)
[2016-12-07] MEDS: CIPROFLOXACIN 250 MG TAB PO SCH ×2 (06:01→17:50)
[2016-12-07 06:42] LABS: MEAN CORPUSCULAR HEMOGLOBIN 28.9 pg (27.0-33.0); MEAN CORPUSCULAR HGB CONC 32.7 g/dl (32.0-36.5); MEAN CORPUSCULAR VOLUME 88.3 fl (80.0-96.0); RED CELL DISTRIBUTION WIDTH 15.8 % (11.5-14.5); WHITE BLOOD COUNT 5.4 10^3/uL (4.0-10.0)
[2016-12-07 07:06] LABS: ANION GAP 4 MEQ/L (8-16); BLOOD UREA NITROGEN 8 MG/DL (7-18); CALCIUM LEVEL 9.6 MG/DL (8.8-10.2); CARBON DIOXIDE LEVEL 32 MEQ/L (21-32); CHLORIDE LEVEL 96 MEQ/L (98-107); CREATININE FOR GFR 0.68 MG/DL (0.55-1.02); GLOMERULAR FILTRATION RATE > 60.0 (>39); GLUCOSE, FASTING 104 MG/DL (83-110); POTASSIUM SERUM 4.4 MEQ/L (3.5-5.1); SODIUM LEVEL 132 MEQ/L (136-145)
[2016-12-07] MEDS: ADVAIR HFA 230/21MCG INHALER INH SCH ×2 (08:00→20:56)
[2016-12-07] MEDS: OMEPRAZOLE 20 MG CAP PO SCH (08:58)
[2016-12-07] MEDS: DOCUSATE SODIUM 100 MG CAP PO SCH ×2 (08:58→19:47)
[2016-12-07] MEDS: MAGNESIUM OXIDE 400 MG TAB (MAG-OX) PO SCH (08:59)
[2016-12-07] MEDS: MIRALAX *UNIT DOSE* 17GM PACKET PO SCH (08:59)
[2016-12-07] MEDS: PRIMIDONE 50 MG TAB PO SCH (08:59)
[2016-12-07] MEDS: MEMANTINE 5MG TABLET (NAMENDA) PO SCH ×2 (08:59→20:05)
[2016-12-07] MEDS ORDERED: RAMIPRIL 2.5 MG CAP PO SCH (09:00)
[2016-12-07] MEDS: RAMIPRIL 5 MG CAP PO SCH (09:47)
--- NOTE | 2016-12-07 13:12 | REPUSA ---
CT of the head Clinical history: follow-up intracranial hemorrhage. Technique: Multiple axial CT images were obtained through the head without administration of contrast . Comparison: 12/03/2016. Findings: The size and appearance of the intracranial hemorrhage in the left occipital lobe is grossl y stable in appearance to the prior study. Small amount of subdural blood is seen at this site. Mild surrounding vasogenic edema is appreciated. The ventricles and sulci are symmetric bilaterally. There is no midline shift. The osseous structures are unremarkable. The visualized paranasal sinuses and m astoid air cells are clear. Impression: No significant change in the appearance of the size and severity of the left occipital lo be intracranial hemorrhage since the prior study.
[2016-12-07 14:00] VITALS: BP 125/59
--- NOTE | 2016-12-07 18:31 | DSES ---
DATE OF ADMISSION: 12/03/2016 DATE OF DISCHARGE: 12/07/2016 BRIEF HISTORY AND PHYSICAL: The patient is a 76-year-old patient of Dr. Smith with a history of Alzheimer's dementia who presented to the emergency room with a three-day history of pounding headache. No history of head trauma or falls but she had been more unsteady and more confused over the past couple of days. She does not take any aspirin or blood thinners. She was found to have an intracranial hemorrhage in the emergency room and was admitted to the intensive care unit (ICU). PAST MEDICAL HISTORY: Significant for: 1. Impaired fasting glucose. 2. Hypertension. 3. Chronic obstructive pulmonary disease (COPD). 4. Alzheimer's dementia. 5. Hypothyroidism. 6. Hyperlipidemia. 7. Osteoarthritis. 8. Cervical and lumbar degenerative joint disease. 9. Tachycardia-bradycardia syndrome with paroxysmal supraventricular tachycardia (SVT), status post dual-chamber pacemaker. 10. History recurrent diverticulitis. PERTINENT LABORATORY DATA ON ADMISSION: White count 6.5, hemoglobin 14.4, platelets 255,000. Sodium 132, potassium 4, BUN 7, creatinine 0.68, glucose 95. CT of the head showed intraparenchymal hemorrhage of the left occipital lobe, 3 x 2 cm with a small amount of adjacent subarachnoid hemorrhage, surrounding edema. No midline shift. HOSPITAL COURSE: 1. The patient was admitted for intracranial hemorrhage to the intensive care unit (ICU) per the recommendation of the neurosurgeon, although no surgical intervention was recommended. She was seen by neurology who recommended keeping her systolic blood pressure below 140 and diastolic blood pressure below 90. She should avoid aspirin, heparin, or Lovenox. Physical therapy and occupational therapy have been ordered and she has had followup CT scan on 12/05/2016, that showed no change in the intraparenchymal hematoma or the subarachnoid hemorrhage. Her neurologic status has remained stable. We have been adjusting her blood pressure medications in an effort to maintain blood pressures below 140. Her ramipril dose will be increased to 10 mg today due to some high blood pressures overnight and we will continue to monitor and adjust accordingly. She did get hydralazine which cause hypotension, which should be avoided. She did have a slight headache related to the intracranial bleed which is well-controlled with [place] and we will continue this as needed, although I will add some Tylenol Extra Strength to be used for milder headaches in hopes that maybe she will need less of the [place]. 2. Urinary tract infection (UTI). She grew Escherichia (E) coli. She is on Cipro and today is day five of seven. 3. Chronic obstructive pulmonary disease (COPD). This remained stable on her usual Advair, Combivent as needed, and budesonide. 4. Hypothyroidism. She remains on levothyroxine. 5. Hyperlipidemia. She is on her statin therapy. 7. Gastroesophageal reflux disease. She has remained stable on Prilosec. DISPOSITION: Her medications will be dictated at the time of her transfer to the retirement for subacute rehabilitation. Her discharge diagnoses at this time include: 1. Acute subarachnoid hemorrhage with acute left parietal occipital lobe intraparenchymal hematoma. 2. Hypertension. 3. Headache secondary to intracranial bleed. 4. Alzheimer's dementia. 5. Unsteady gait. 6. Urinary tract infection (UTI), secondary to Escherichia (E) coli. 7. Chronic obstructive pulmonary disease (COPD). 8. Gastroesophageal reflux disease.
[2016-12-07] MEDS: DONEPEZIL 5 MG TAB PO SCH (20:05)
[2016-12-07] MEDS: SIMVASTATIN 40 MG TAB PO SCH (20:05)
[2016-12-07 21:00] VITALS: BP 134/63
[2016-12-08] MEDS: LEVOTHYROXINE 25MCG TABLET (0.025MG) PO SCH (05:44)
[2016-12-08] MEDS: CIPROFLOXACIN 250 MG TAB PO SCH ×2 (05:44→18:57)
[2016-12-08 06:00] VITALS: BP 144/69
[2016-12-08] MEDS: ADVAIR HFA 230/21MCG INHALER INH SCH ×2 (07:32→19:38)
[2016-12-08] MEDS: MAGNESIUM OXIDE 400 MG TAB (MAG-OX) PO SCH (09:21)
[2016-12-08] MEDS: OMEPRAZOLE 20 MG CAP PO SCH (09:21)
[2016-12-08] MEDS: PRIMIDONE 50 MG TAB PO SCH (09:22)
[2016-12-08] MEDS: MEMANTINE 5MG TABLET (NAMENDA) PO SCH ×2 (09:26→21:02)
[2016-12-08] MEDS: RAMIPRIL 5 MG CAP PO SCH (09:26)
[2016-12-08] MEDS: DOCUSATE SODIUM 100 MG CAP PO SCH ×2 (09:27→21:02)
[2016-12-08] MEDS: MIRALAX *UNIT DOSE* 17GM PACKET PO SCH (09:27)
[2016-12-08] MEDS: NORCO, ANEXSIA 5/325MG TABLET (HYDROcodone/ACETAMINOPHEN) PO PRN ×2 (09:27→14:51)
[2016-12-08] MEDS: DONEPEZIL 5 MG TAB PO SCH (21:02)
[2016-12-08] MEDS: SIMVASTATIN 40 MG TAB PO SCH (21:02)
[2016-12-09] MEDS: LEVOTHYROXINE 25MCG TABLET (0.025MG) PO SCH (05:22)
[2016-12-09] MEDS: CIPROFLOXACIN 250 MG TAB PO SCH (05:22)
[2016-12-09 06:00] VITALS: BP 154/88
[2016-12-09] MEDS: ADVAIR HFA 230/21MCG INHALER INH SCH (07:30)
[2016-12-09] MEDS: MEMANTINE 5MG TABLET (NAMENDA) PO SCH (10:24)
[2016-12-09] MEDS: DOCUSATE SODIUM 100 MG CAP PO SCH (10:24)
[2016-12-09 10:26] VITALS: BP 154/88
[2016-12-09] MEDS: MAGNESIUM OXIDE 400 MG TAB (MAG-OX) PO SCH (10:26)
[2016-12-09] MEDS: PRIMIDONE 50 MG TAB PO SCH (10:26)
[2016-12-09] MEDS: OMEPRAZOLE 20 MG CAP PO SCH (10:26)
[2016-12-09] MEDS: MIRALAX *UNIT DOSE* 17GM PACKET PO SCH (10:26)
[2016-12-09] MEDS: RAMIPRIL 5 MG CAP PO SCH (10:26)
[2016-12-09] MEDS ORDERED: INFLUENZA VIRUS VACCINE HIGH DOSE 0.5 ML SYRINGE (90662) IM ONE (16:00)
--- NOTE | 2016-12-09 20:47 | DSES ---
DATE OF ADMISSION: 12/03/2016 DATE OF DISCHARGE: 12/09/2016 ADDENDUM Patient continued to work with physical therapy during her hospital stay and was found to be safe for discharge home on 12/09/2016 with home health and home physical therapy services to be arranged. DISCHARGE MEDICATIONS: - albuterol/ipratropium, Combivent/Respimat, 20/100 mcg one puff four times daily as needed for shortness of breath - ascorbic acid 100 mg, take 500 mg by mouth daily - budesonide 3 mg by mouth at bedtime - calcium with vitamin D one tablet by mouth daily - vitamin B12 at 1000 mcg by mouth daily - donepezil 5 mg by mouth at bedtime - escitalopram 10 mg by mouth daily - levothyroxine 25 mcg by mouth daily - lidocaine 5% patch topically as needed for pain - lubiprostone 8 mcg by mouth at bedtime - magnesium 400 mg by mouth daily - memantine 5 mg by mouth twice daily - multivitamin one capsule by mouth daily - omeprazole 40 mg by mouth daily - primidone 50 mg by mouth daily - ramipril 5 mg by mouth daily - simvastatin 40 mg by mouth at bedtime - Spiriva one puff by inhalation daily - Reclast 5 mg/100 mL IV once a year Patient should followup with her primary care physician, Dr. Galileo Adams, within 1-2 weeks. CONDITION: Stable. PROGNOSIS: Good. PENDING STUDIES: None. DIET: Regular. ACTIVITY LEVEL: As tolerated.
== END 2016-12-09 15:25 | disposition home health service (06) | DRG 64 ==
LOC: M ED 09:21 → M ED INP 13:10 → M ICU 16:33 → UNDODISIN 12-04 10:38 → M MS4PR 12-06 19:38 → M MSPAV 12-08 15:41
PROVIDERS: ADMIT Family Medicine; ATTEND Family Medicine
DX: I60.7 Nontraumatic subarachnoid hemorrhage from unspecified intracranial artery (principal); G93.6 Cerebral edema; E85.4 Organ-limited amyloidosis; N39.0 Urinary tract infection, site not specified; F30.9 Manic episode, unspecified; I61.8 Other nontraumatic intracerebral hemorrhage; B96.29 Other Escherichia coli [E. coli] as the cause of diseases classified elsewhere; Z79.899 Other long term (current) drug therapy; J44.9 Chronic obstructive pulmonary disease, unspecified; I10 Essential (primary) hypertension; E78.5 Hyperlipidemia, unspecified; M19.90 Unspecified osteoarthritis, unspecified site; M51.36 Other intervertebral disc degeneration, lumbar region; F02.80 Dementia in other diseases classified elsewhere, unspecified severity, without behavioral disturbance, psychotic disturbance, mood disturbance, and anxiety; Z95.0 Presence of cardiac pacemaker; M50.30 Other cervical disc degeneration, unspecified cervical region; K21.9 Gastro-esophageal reflux disease without esophagitis; R26.89 Other abnormalities of gait and mobility; Z88.2 Allergy status to sulfonamides; Z88.0 Allergy status to penicillin; Z88.8 Allergy status to other drugs, medicaments and biological substances; F17.200 Nicotine dependence, unspecified, uncomplicated

== ENCOUNTER 2016-12-12 13:10 | Inpatient (IN) | payer MEDICARE, OTHER ==
[~2016-12-12] VITALS: Ht 160 cm; Wt 65.3 kg
[~2016-12-12 13:10] MED LIST changes: +CALC1TAB74 PO; +COMBAER6 INH; +DONETAB5 PO; +ESCI10TA2 PO; +MEMA1TAB PO; +RAMI5CA PO; +RECL5INJ2 IV; +ZOCO40TA PO
[2016-12-12] MEDS ORDERED: ONDANSETRON 4MG/2ML VIAL (J2405) IV ONE (14:00)
[2016-12-12] MEDS ORDERED: MORPHINE 2 MG/ML 1ML SYRINGE IV ONE (14:00)
--- NOTE | 2016-12-12 14:10 | REP ---
CT of the brain without IV contrast: Comparison is 12/05/2016. The patient's known left parieto-occipital hematoma is again identified. This has decreased in size today measuring 2.8 x 1.7 cm (previously 3.0 x 2.1 cm). Edema is again identified surrounding the hematoma as previously. There is no new intracranial hemorrhage. The cortical stripe is unremarkable. Ventricles and sulci are unchanged. There is no mass effect or midline shift. The small amount of mucosal thickening in the left sphenoid sinus is unchanged. Impression: The left parieto-occipital hematoma continues to decrease in size. Signed by Kendrick Cruz MD 12/12/2016 02:01 P
[2016-12-12 14:36] LABS: BASO % 0.5 % (0.0-1.0); EOS # 0.1 10^3/uL (0.0-0.50); EOS % 1.2 % (0.0-3.0); IMMATURE GRANULOCYTE % 0.3 % (0-0); LYMPH # 1.2 10^3/uL (1.5-4.5); LYMPH % 18.3 % (24.0-44.0); MEAN CORPUSCULAR HEMOGLOBIN 28.9 pg (27.0-33.0); MEAN CORPUSCULAR HGB CONC 33.5 g/dl (32.0-36.5); MEAN CORPUSCULAR VOLUME 86.3 fl (80.0-96.0); MONO # 0.8 10^3/uL (0.0-0.8); MONO % 12.2 % (0.0-5.0); NEUTROPHILS # 4.4 10^3/uL (1.8-7.7); NEUTROPHILS % 67.5 % (36.0-66.0); PLATELET COUNT, AUTOMATED 269 10^3/uL (150-450); RED CELL DISTRIBUTION WIDTH 15.6 % (11.5-14.5); WHITE BLOOD COUNT 6.6 10^3/uL (4.0-10.0)
[2016-12-12 14:37] LABS: ADD MANUAL DIFFER NO; DIFF SLIDE NUMBER 249
[2016-12-12] MEDS ORDERED: hydrALAZINE INJ 20 MG/ML VIAL IV ONE (15:00)
[2016-12-12 15:10] LABS: ANION GAP 5 MEQ/L (8-16); BLOOD UREA NITROGEN 12 MG/DL (7-18); CALCIUM LEVEL 8.5 MG/DL (8.8-10.2); CARBON DIOXIDE LEVEL 30 MEQ/L (21-32); CHLORIDE LEVEL 94 MEQ/L (98-107); CREATININE FOR GFR 0.66 MG/DL (0.55-1.02); GLOMERULAR FILTRATION RATE > 60.0 (>39); GLUCOSE, FASTING 84 MG/DL (83-110); POTASSIUM SERUM 4.3 MEQ/L (3.5-5.1); SODIUM LEVEL 129 MEQ/L (136-145)
[2016-12-12] MEDS ORDERED: hydrALAZINE INJ 20 MG/ML VIAL IV PRN (18:15)
[2016-12-12] MEDS ORDERED: LIDOCAINE 5% (LIDODERM) PATCH TD PRN (18:15)
[2016-12-12] MEDS ORDERED: ONDANSETRON 4 MG TAB (S0181) PO PRN (18:15)
[2016-12-12] MEDS ORDERED: ACETAMINOPHEN TAB 650MG DOSE (2X325MG) PO PRN (18:15)
[2016-12-12] MEDS ORDERED: ONDANSETRON 4MG/2ML VIAL (J2405) IV PRN (18:15)
--- NOTE | 2016-12-12 19:57 | HPEPDOC ---
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 The patient was admitted one week ago for her spontaneous intracranial hemorrhage, and was seen by neurosurgery who felt that there was no surgical intervention necessary. She was also evaluated by neurology at the time, who recommended keeping her blood pressure under 140/90. The patient was discharged this past Monday, and at the time was evidently feeling well with only a dull headache. She and her state that she mostly did well over the weekend, but this morning her headache became very severe. She states that it was located on the left side towards the back, and was constant and sharp. At home, she tried taking some Tylenol which did not help. She says that in the emergency department, the morphine they gave her did help. She denies any associated nausea or vomiting. CT of the head today shows decrease in size of the hematoma. In the emergency department, they spoke with Dr. Sawant, who again said that there was no neurosurgical intervention necessary. They also spoke with Dr. Soto, who again recommended blood pressure control of less than 140/90. The patient's blood pressure was quite elevated upon arrival, so they began lowering her blood pressure. By the time I saw the patient, she states the headache is improving. 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 She does not drink any alcohol or use any drugs. She has smoked approximately half a pack to 1 pack per day for the last 60 years, but she does state that since her recent admission, she has not smoked at all. Allergies: Atorvastatin, calcitonin, gluten, meloxicam, penicillins, risedronate , sulfa Review of systems: General: Negative for fever, positive for chills Eyes: Negative for vision changes, positive for ocular discharge ENT: Negative for sore throat, positive for a self resolving nosebleed on Monday Cardiovascular: Negative for chest pain and palpitations Respiratory: Positive for shortness of breath, negative for cough GI: Positive for diarrhea, negative for nausea and vomiting Musculoskeletal: Positive for chronic back pain Skin: Negative for rash Neuro: Positive for headache and dizziness, negative for numbness and tingling Psych: Positive For depression, negative for suicidal ideation Endocrine: Negative for polyuria : Positive for dysuria Heme: Negative for any bleeding other than the self resolving nosebleed Home meds: See below Physical exam: Vital signs: Vital Sign - Last 24 Hours 12/12/16 12/12/16 12/12/16 12/12/16 13:23 13:31 14:04 14:07 Temp 98.2 Pulse 60 Resp 18 16 B/P (MAP) 139/92 (108) 178/78 (111) Pulse Ox 93 95 O2 Delivery Room Air Room Air 12/12/16 12/12/16 12/12/16 12/12/16 14:10 14:19 14:27 14:34 Pulse 60 B/P (MAP) 175/78 (110) 180/79 (112) 166/75 (105) Pulse Ox 94 12/12/16 12/12/16 12/12/16 12/12/16 14:36 14:40 14:49 15:04 Pulse 60 Resp 16 B/P (MAP) 167/78 (107) 155/71 (99) Pulse Ox 95 93 O2 Delivery Room Air 12/12/16 12/12/16 12/12/16 12/12/16 15:10 15:12 15:25 15:34 Pulse 60 60 B/P (MAP) 155/78 141/63 (89) Pulse Ox 92 94 12/12/16 12/12/16 12/12/16 12/12/16 15:49 15:55 16:04 16:19 Pulse 60 B/P (MAP) 142/63 (89) 136/62 (86) 144/65 (91) Pulse Ox 92 12/12/16 12/12/16 12/12/16 12/12/16 16:25 16:49 16:55 17:19 Pulse 62 66 B/P (MAP) 142/63 (89) 143/64 (90) Pulse Ox 94 94 12/12/16 12/12/16 12/12/16 12/12/16 17:25 17:40 17:49 17:55 Pulse 60 60 60 B/P (MAP) 143/63 (89) Pulse Ox 93 94 95 12/12/16 12/12/16 12/12/16 12/12/16 18:10 18:19 18:25 18:40 Pulse 60 62 62 B/P (MAP) 144/81 (102) Pulse Ox 93 94 92 12/12/16 12/12/16 12/12/16 12/12/16 18:49 18:55 19:10 19:19 Pulse 60 66 B/P (MAP) 153/69 (97) 163/70 (101) Pulse Ox 91 92 12/12/16 12/12/16 12/12/16 19:25 19:40 19:46 Temp 98.0 Pulse 68 60 Resp 18 B/P (MAP) Pulse Ox 93 Gen.: awake, alert, no acute distress Eyes: Extraocular movements intact, normal sclera ENT: Moist mucous membranes Cardiovascular: RRR, no murmurs rubs or gallops Lungs: clear to auscultation bilaterally, no rales, rhonchi, or wheeze Abdomen: Soft, normal BS, positive for tenderness to palpation in the right lower quadrant, no rebound or guarding Musculoskeletal: normal range of motion Extremities: No peripheral edema Neuro: alert and oriented 2 but thinks that it is 1974, normal speech, no focal deficits, no arm drift, no facial droop, intact finger to nose Psych: Normal mood with congruent affect Labs and radiology: See below CBC is unremarkable BMP shows a sodium of 129 CT of the head shows a left parietal-occipital hematoma which is decreasing in size, with no evidence of mass effect or midline shift Assessment and plan: 76-year-old female with Alzheimer's, impaired fasting glucose, hypertension, COPD, Crohn's disease, endometrial carcinoma, GERD, history of PUD, hypothyroidism, hyperlipidemia, 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 1. Headache and accelerated hypertension: This is secondary to her resolving intracranial hemorrhage. Unfortunately, her blood pressure is quite uncontrolled , which is likely why she began to experience an increase in her headaches. The ER discussed with neurosurgery, and there is no need for any surgical intervention at this time. The ER and myself both independently discussed with Dr. Soto of neurology, and he recommends keeping her blood pressure under 140/ 90. He otherwise does not believe she needs any interventions, but states that if her situation changes, we can call him back and hit be happy to see her. At this time, we will increase her MYRON inhibitor from 5 mg daily to 10 mg daily. We will also use as needed hydralazine to reach this blood pressure goal. She will have regular neuro checks and will receive [place] and morphine for her pain. 2. Inability to walk: The patient had been ambulating well this weekend until her headache became severe today. At that time, she began having difficulty walking secondary to the pain. We will get PT OT to evaluate her, but I suspect that as her blood pressure improves, this will also improve. 3. Diarrhea: The patient is afebrile with a normal white count. We will check a GI panel. 4. Dysuria: The patient is afebrile with normal white count. We will check a UA and urine culture. 5. COPD: This currently appears to be stable. We'll continue the patient's home Combivent, budesonide, Spiriva. 6. GERD: Continue home PPI. 7. Hypothyroidism: Continue home Synthroid. 8. Hyperlipidemia: Continue home statin. 9. Depression: Continue home Lexapro. 10. Alzheimer dementia: Continue home memantine. 11. Hyponatremia: Sodium is 129. Upon review of the EMR, it appears that her sodium has chronically been around 130 for at least the last 2 years. She is currently at baseline. We'll continue to monitor. DVT prophylaxis: SCDs Dispo: Place in observation on the service of Dr. Lester CODE STATUS: DNR/DNI Vital Signs Vital Signs Date Time Temp Pulse Resp B/P (MAP) Pulse Ox O2 Delivery O2 Flow Rate FiO2 12/12/16 19:46 98.0 18 12/12/16 19:40 60 12/12/16 19:25 93 10/2/17 14:36 Room Air Laboratory Data Labs 24H Laboratory Tests 2 12/12/16 14:31: Immature Granulocyte % (Auto) 0.3H, White Blood Count 6.6, Red Blood Count 4.15 , Hemoglobin 12.0, Hematocrit 35.8L, Mean Corpuscular Volume 86.3, Mean Corpuscular Hemoglobin 28.9, Mean Corpuscular Hemoglobin Concent 33.5, Red Cell Distribution Width 15.6H, Platelet Count 269, Neutrophils (%) (Auto) 67.5H, Lymphocytes (%) (Auto) 18.3L, Monocytes (%) (Auto) 12.2H, Eosinophils (%) (Auto ) 1.2, Basophils (%) (Auto) 0.5, Neutrophils # (Auto) 4.4, Lymphocytes # (Auto) 1.2L, Monocytes # (Auto) 0.8, Eosinophils # (Auto) 0.1, Basophils # (Auto) 0.0, Immature Granulocyte # (Auto) 0.0, Nucleated Red Blood Cells % (auto) 0.0, Anion Gap 5L, Glomerular Filtration Rate > 60.0, Blood Urea Nitrogen 12, Creatinine 0.66, Sodium Level 129L, Potassium Level 4.3, Chloride Level 94L, Carbon Dioxide Level 30, Calcium Level 8.5L CBC/BMP Laboratory Tests 12/12/16 14:31 Red Blood Count 4.15, Mean Corpuscular Volume 86.3, Mean Corpuscular Hemoglobin 28.9, Mean Corpuscular Hemoglobin Concent 33.5, Red Cell Distribution Width 15.6 H, Neutrophils (%) (Auto) 67.5 H, Lymphocytes (%) (Auto) 18.3 L, Monocytes (%) (Auto) 12.2 H, Eosinophils (%) (Auto) 1.2, Basophils (%) (Auto) 0.5, Neutrophils # (Auto) 4.4, Lymphocytes # (Auto) 1.2 L, Monocytes # (Auto) 0.8, Eosinophils # (Auto) 0.1, Basophils # (Auto) 0.0, Calcium Level 8.5 L Home Medications Scheduled (Multivitamins) 1 Cap Cap, 1 CAP PO DAILY (Magnesium) 400 Mg Cap, 400 MG PO DAILY Albuterol/Ipratropium (Combivent Respimat 20-100 Mcg/Act) 1 Aer Aer, 1 PUFF INH BID Ascorbic Acid (Vitamin C) 100 Mg Tab, 500 MG PO DAILY Budesonide (Entocort EC) 3 Mg Cap, 3 MG PO QHS Calcium/Vitamin D (Calcium/Vitamin D 600-400 mg-Unit) 1 Tab Tab, 1 TAB PO DAILY Cyanocobalamin (Vitamin B-12) 1,000 Mcg Tab, 1,000 MCG PO DAILY Donepezil Hcl (Donepezil HCl) 5 Mg Tab, 5 MG PO QHS Escitalopram Oxalate (Escitalopram Oxalate) 10 Mg Tab, 10 MG PO DAILY Levothyroxine Sodium (Synthroid) 25 Mcg Tab, 25 MCG PO DAILY Lubiprostone (Amitiza) 8 Mcg Cap, 8 MCG PO QHS Memantine Hydrochloride (Memantine HCl) 5 Mg Tab, 5 MG PO BID Omeprazole (Prilosec) 40 Mg Cap, 40 MG PO DAILY Primidone (Primidone) 50 Mg Tab, 50 MG PO DAILY Ramipril (Ramipril) 5 Mg Cap, 5 MG PO DAILY Simvastatin - High Dose (Zocor) 40 Mg Tab, 40 MG PO QHS Tiotropium [place] (Spiriva) 6 Puff/Inhaler Cap, 1 PUFF INH DAILY Zoledronic Acid (Reclast) 5 Mg/100 Ml Inj, 5 MG IV ASDIRECTED YEARLY Scheduled PRN Lidocaine (Lidoderm) 5 % Dis, 1 PATCH TD PRN PRN for PAIN applies to back Allergies Coded Allergies: Atorvastatin (Verified Allergy, Unknown, 12/03/16) Calcitonin (Verified Allergy, Unknown, 12/03/16) Gluten Meal (Verified Allergy, Unknown, NEEDS GLUTEN FREE DIET, 12/03/16) Meloxicam (Verified Allergy, Unknown, 12/03/16) Penicillins (Verified Allergy, Unknown, 12/03/16) Penicillins Cross Reactors (Verified Allergy, Unknown, 12/03/16) Risedronate (Verified Allergy, Unknown, 12/03/16) Sulfa Drugs (Verified Allergy, Unknown, 12/03/16) Sulfa Drugs Cross Reactors (Verified Allergy, Unknown, 12/03/16) MELLISA VIGIL Dec 12, 2016 19:57
[2016-12-12] MEDS: IPRATROPIUM 0.5MG/ALBUTEROL 2.5MG INH SOL UD 3ML (DUONEB)(J7620) INH SCH (20:00)
[2016-12-12 20:17] VITALS: BP 135/71
[2016-12-12] MEDS: MORPHINE 2 MG/ML 1ML SYRINGE IV PRN (20:29)
[2016-12-12] MEDS: BUDESONIDE EC 3 MG CAP (ENTOCORT EC) PO SCH (20:54)
[2016-12-12] MEDS: MEMANTINE 5MG TABLET (NAMENDA) PO SCH (20:54)
[2016-12-12] MEDS: SIMVASTATIN 40 MG TAB PO SCH (20:54)
[2016-12-12] MEDS ORDERED: **NOTE PATIENT COMMENT** MISC XX PRN (21:00)
[2016-12-13] VITALS (7 sets, daily range): BP systolic 99–141; BP diastolic 49–65
[2016-12-13] MEDS: PERCOCET 5MG/325MG TAB PO PRN ×4 (02:22→19:58)
[2016-12-13] MEDS: MORPHINE 2 MG/ML 1ML SYRINGE IV PRN ×2 (04:06→04:30)
[2016-12-13 04:58] LABS: BASO # 0.1 10^3/uL (0.0-0.2); BASO % 0.7 % (0.0-1.0); EOS # 0.1 10^3/uL (0.0-0.50); EOS % 1.8 % (0.0-3.0); IMMATURE GRANULOCYTE % 0.4 % (0-0); LYMPH # 1.1 10^3/uL (1.5-4.5); LYMPH % 15.5 % (24.0-44.0); MEAN CORPUSCULAR HEMOGLOBIN 28.8 pg (27.0-33.0); MEAN CORPUSCULAR HGB CONC 33.2 g/dl (32.0-36.5); MEAN CORPUSCULAR VOLUME 86.8 fl (80.0-96.0); MONO # 0.9 10^3/uL (0.0-0.8); MONO % 12.1 % (0.0-5.0); NEUTROPHILS # 5.1 10^3/uL (1.8-7.7); NEUTROPHILS % 69.5 % (36.0-66.0); PLATELET COUNT, AUTOMATED 287 10^3/uL (150-450); RED CELL DISTRIBUTION WIDTH 15.8 % (11.5-14.5); WHITE BLOOD COUNT 7.4 10^3/uL (4.0-10.0)
[2016-12-13 05:24] LABS: ANION GAP 5 MEQ/L (8-16); BLOOD UREA NITROGEN 14 MG/DL (7-18); CALCIUM LEVEL 8.8 MG/DL (8.8-10.2); CARBON DIOXIDE LEVEL 31 MEQ/L (21-32); CHLORIDE LEVEL 92 MEQ/L (98-107); CREATININE FOR GFR 0.74 MG/DL (0.55-1.02); GLOMERULAR FILTRATION RATE > 60.0 (>39); GLUCOSE, FASTING 102 MG/DL (83-110); MAGNESIUM LEVEL 1.8 MG/DL (1.8-2.4); POTASSIUM SERUM 4.3 MEQ/L (3.5-5.1); SODIUM LEVEL 128 MEQ/L (136-145)
[2016-12-13] MEDS: LEVOTHYROXINE 25MCG TABLET (0.025MG) PO SCH (05:34)
[2016-12-13] MEDS: IPRATROPIUM 0.5MG/ALBUTEROL 2.5MG INH SOL UD 3ML (DUONEB)(J7620) INH SCH ×2 (07:20→19:17)
[2016-12-13] MEDS: TIOTROPIUM INHALER/CAPSULE (SPIRIVA) INH SCH (07:20)
[2016-12-13] MEDS: OMEPRAZOLE 20 MG CAP PO SCH (08:18)
[2016-12-13] MEDS: ESCITALOPRAM OXALATE 10 MG TAB (LEXAPRO) PO SCH (08:18)
[2016-12-13] MEDS: CYANOCOBALAMIN 500 MCG TAB PO SCH (08:18)
[2016-12-13] MEDS: RAMIPRIL 5 MG CAP PO SCH (08:18)
[2016-12-13] MEDS: PRIMIDONE 50 MG TAB PO SCH (08:18)
[2016-12-13] MEDS: MEMANTINE 5MG TABLET (NAMENDA) PO SCH ×2 (08:19→19:57)
--- NOTE | 2016-12-13 09:17 | IPNPDOC ---
Subjective Date Seen The patient was seen on 12/13/16. Subjective Chief Complaint/HPI The patient is a 76-year-old female admitted with a reason for visit of Hypertension, Intracranial Hemorrhage. Events since last encounter Pt still with headache but states it has improved. Denies any more diarrhea. Denies any urinary complaints. Denies Abd pain, CP, SOB. Constitutional: Denies: Chills, Fever Pulmonary: Denies: Dyspnea Cardiovascular: Denies: Chest Pain Gastrointestinal: Denies: Abdominal Pain, Diarrhea Objective Physical Examination General Exam: Positive: Alert, No Acute Distress Neck Exam: Positive: Supple, Negative: JVD Chest Exam: Positive: Clear to auscultation Heart Exam: Positive: Rate Normal, Regular Rhythm Abdomen Exam: Positive: Normal bowel sounds, Soft, Negative: Tenderness Extremity Exam: Negative: Edema Neuro Exam: Positive: Normal Speech, Cranial Nerves 3-12 NL Assessment /Plan Problems (1) Hypertension Status: Chronic Problem Specific Plan: Monitor Clinically Problem Text: Headache and hypertension secondary to resolving intracranial hemorrhage. Blood pressure initially uncontrolled but now improved. The ER discussed with neurosurgery, who apparently felt there was no need for any surgical intervention at this time. The ER and admitting physician discussed with Dr. Soto of neurology, who recommended keeping her blood pressure under 140/ 90. MYRON inhibitor was increased from 5 mg daily to 10 mg daily. She was also placed on as needed hydralazine. She will have regular neuro checks and will receive [place] and morphine for her pain. (2) Headache Status: Acute Problem Specific Plan: Monitor Clinically Problem Text: See above. (3) Intracranial hemorrhage Status: Acute Problem Specific Plan: Monitor Clinically Problem Text: See above. (4) Diarrhea Problem Specific Plan: Repeat Labs Problem Text: GI panel ordered. (5) Dysuria Problem Specific Plan: Repeat Labs Problem Text: Urine cx pending. (6) Dementia Status: Chronic Plan/VTE VTE Prophylaxis Ordered?: Yes (SCDs and TEDs) VS, I&O, 24H, Fishbone Vital Signs/I&O Vital Signs Date Time Temp Pulse Resp B/P (MAP) Pulse Ox O2 Delivery O2 Flow Rate FiO2 12/13/16 08:49 20 12/13/16 08:18 127/60 12/13/16 08:00 97.9 60 100 Room Air I&O- Last 24 Hours up to 6 AM 12/14/16 06:00 Intake Total 240 ml Balance 240 ml Laboratory Data 24H LABS Laboratory Tests 2 12/12/16 14:31: Immature Granulocyte % (Auto) 0.3H, White Blood Count 6.6, Red Blood Count 4.15 , Hemoglobin 12.0, Hematocrit 35.8L, Mean Corpuscular Volume 86.3, Mean Corpuscular Hemoglobin 28.9, Mean Corpuscular Hemoglobin Concent 33.5, Red Cell Distribution Width 15.6H, Platelet Count 269, Neutrophils (%) (Auto) 67.5H, Lymphocytes (%) (Auto) 18.3L, Monocytes (%) (Auto) 12.2H, Eosinophils (%) (Auto ) 1.2, Basophils (%) (Auto) 0.5, Neutrophils # (Auto) 4.4, Lymphocytes # (Auto) 1.2L, Monocytes # (Auto) 0.8, Eosinophils # (Auto) 0.1, Basophils # (Auto) 0.0, Immature Granulocyte # (Auto) 0.0, Nucleated Red Blood Cells % (auto) 0.0, Anion Gap 5L, Glomerular Filtration Rate > 60.0, Blood Urea Nitrogen 12, Creatinine 0.66, Sodium Level 129L, Potassium Level 4.3, Chloride Level 94L, Carbon Dioxide Level 30, Calcium Level 8.5L 12/12/16 20:38: Urine Appearance CLEAR, Urine Color STRAW, Urine pH 7.0, Urine Specific [place] 1.004, Urine Protein NEGATIVE, Urine Glucose (UA) NEGATIVE, Urine Ketones NEGATIVE, Urine Urobilinogen 0.2, Urine Bilirubin NEGATIVE, Urine Leukocyte Esterase 2+H, Urine Blood NEGATIVE, Urine Nitrite NEGATIVE, Urine WBC (Auto) 20H , Urine RBC (Auto) 2, Urine Hyaline Casts (Auto) 0, Urine Bacteria (Auto) 1+H, Urine Squamous Epithelial Cells 2, Urine Mucus (Auto) SMALL, Urine Sperm (Auto) 12/13/16 04:39: Immature Granulocyte % (Auto) 0.4H, White Blood Count 7.4, Red Blood Count 4.23 , Hemoglobin 12.2, Hematocrit 36.7, Mean Corpuscular Volume 86.8, Mean Corpuscular Hemoglobin 28.8, Mean Corpuscular Hemoglobin Concent 33.2, Red Cell Distribution Width 15.8H, Platelet Count 287, Neutrophils (%) (Auto) 69.5H, Lymphocytes (%) (Auto) 15.5L, Monocytes (%) (Auto) 12.1H, Eosinophils (%) (Auto ) 1.8, Basophils (%) (Auto) 0.7, Neutrophils # (Auto) 5.1, Lymphocytes # (Auto) 1.1L, Monocytes # (Auto) 0.9H, Eosinophils # (Auto) 0.1, Basophils # (Auto) 0.1 , Immature Granulocyte # (Auto) 0.0, Nucleated Red Blood Cells % (auto) 0.0, Anion Gap 5L, Glomerular Filtration Rate > 60.0, Blood Urea Nitrogen 14, Creatinine 0.74, Sodium Level 128L, Potassium Level 4.3, Chloride Level 92L, Carbon Dioxide Level 31, Calcium Level 8.8, Magnesium Level 1.8 CBC/BMP Laboratory Tests 12/12/16 14:31 Red Blood Count 4.15, Mean Corpuscular Volume 86.3, Mean Corpuscular Hemoglobin 28.9, Mean Corpuscular Hemoglobin Concent 33.5, Red Cell Distribution Width 15.6 H, Neutrophils (%) (Auto) 67.5 H, Lymphocytes (%) (Auto) 18.3 L, Monocytes (%) (Auto) 12.2 H, Eosinophils (%) (Auto) 1.2, Basophils (%) (Auto) 0.5, Neutrophils # (Auto) 4.4, Lymphocytes # (Auto) 1.2 L, Monocytes # (Auto) 0.8, Eosinophils # (Auto) 0.1, Basophils # (Auto) 0.0, Calcium Level 8.5 L 12/13/16 04:39 Red Blood Count 4.23, Mean Corpuscular Volume 86.8, Mean Corpuscular Hemoglobin 28.8, Mean Corpuscular Hemoglobin Concent 33.2, Red Cell Distribution Width 15.8 H, Neutrophils (%) (Auto) 69.5 H, Lymphocytes (%) (Auto) 15.5 L, Monocytes (%) (Auto) 12.1 H, Eosinophils (%) (Auto) 1.8, Basophils (%) (Auto) 0.7, Neutrophils # (Auto) 5.1, Lymphocytes # (Auto) 1.1 L, Monocytes # (Auto) 0.9 H, Eosinophils # (Auto) 0.1, Basophils # (Auto) 0.1, Calcium Level 8.8 Microbiology Microbiology 12/12/16 Urine Culture, Received Pending Betito Edwards Dec 13, 2016 09:17
[2016-12-13] MEDS: SIMVASTATIN 40 MG TAB PO SCH (19:57)
[2016-12-13] MEDS: BUDESONIDE EC 3 MG CAP (ENTOCORT EC) PO SCH (19:57)
[2016-12-14 00:37] VITALS: BP 138/70
[2016-12-14] MEDS: PERCOCET 5MG/325MG TAB PO PRN ×4 (01:11→20:30)
[2016-12-14] MEDS: LEVOTHYROXINE 25MCG TABLET (0.025MG) PO SCH (05:44)
[2016-12-14 05:50] VITALS: BP 133/60
[2016-12-14 06:43] LABS: BASO # 0.1 10^3/uL (0.0-0.2); BASO % 0.7 % (0.0-1.0); EOS # 0.1 10^3/uL (0.0-0.50); EOS % 1.4 % (0.0-3.0); IMMATURE GRANULOCYTE % 0.3 % (0-0); LYMPH # 1.4 10^3/uL (1.5-4.5); LYMPH % 19.7 % (24.0-44.0); MEAN CORPUSCULAR HEMOGLOBIN 28.5 pg (27.0-33.0); MEAN CORPUSCULAR HGB CONC 32.4 g/dl (32.0-36.5); MEAN CORPUSCULAR VOLUME 87.9 fl (80.0-96.0); MONO # 0.8 10^3/uL (0.0-0.8); MONO % 10.7 % (0.0-5.0); NEUTROPHILS # 4.8 10^3/uL (1.8-7.7); NEUTROPHILS % 67.2 % (36.0-66.0); PLATELET COUNT, AUTOMATED 269 10^3/uL (150-450); RED CELL DISTRIBUTION WIDTH 15.8 % (11.5-14.5); WHITE BLOOD COUNT 7.2 10^3/uL (4.0-10.0)
[2016-12-14 07:04] LABS: ANION GAP 5 MEQ/L (8-16); BLOOD UREA NITROGEN 15 MG/DL (7-18); CALCIUM LEVEL 8.3 MG/DL (8.8-10.2); CARBON DIOXIDE LEVEL 30 MEQ/L (21-32); CHLORIDE LEVEL 93 MEQ/L (98-107); CREATININE FOR GFR 0.73 MG/DL (0.55-1.02); GLOMERULAR FILTRATION RATE > 60.0 (>39); GLUCOSE, FASTING 93 MG/DL (83-110); POTASSIUM SERUM 4.6 MEQ/L (3.5-5.1); SODIUM LEVEL 128 MEQ/L (136-145)
[2016-12-14] MEDS: IPRATROPIUM 0.5MG/ALBUTEROL 2.5MG INH SOL UD 3ML (DUONEB)(J7620) INH SCH ×2 (08:00→20:49)
[2016-12-14] MEDS: TIOTROPIUM INHALER/CAPSULE (SPIRIVA) INH SCH (09:00)
[2016-12-14] MEDS: OMEPRAZOLE 20 MG CAP PO SCH (09:07)
[2016-12-14] MEDS: CYANOCOBALAMIN 500 MCG TAB PO SCH (09:08)
[2016-12-14] MEDS: RAMIPRIL 5 MG CAP PO SCH (09:08)
[2016-12-14] MEDS: ESCITALOPRAM OXALATE 10 MG TAB (LEXAPRO) PO SCH (09:08)
[2016-12-14] MEDS: MEMANTINE 5MG TABLET (NAMENDA) PO SCH ×2 (09:08→20:30)
[2016-12-14] MEDS: PRIMIDONE 50 MG TAB PO SCH (09:08)
--- NOTE | 2016-12-14 13:14 | IPN ---
DATE OF SERVICE: 12/14/2016 Kayla is seen on [address]. Headache persists. Blood pressure is under better control. She is hyponatremic. Has not improved. She was hyponatremic on admission but was placed on a 2 gram sodium diet. PHYSICAL EXAMINATION: 133/60, pulse 84, respiratory rate 16. General appearance: Alert, conversant, visiting with family members. Looks better than yesterday. Lungs: Clear. Heart: Regular rhythm. Abdomen: Soft, nontender, no peripheral edema. Normal neurologic exam; LABS: CBC unremarkable. Sodium is 128. IMPRESSION: 1. Intractable headache, it is persisting but seems to be a little better. Recent intracranial hemorrhage. 2. Hypertension. Blood pressure is under good control on current regimen. Systolic pressure actually got a low down in the 90s yesterday so I certainly do not want to push her meds any. 3. 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 She is on an SSRI which may be contributing. I will confirm the diagnosis with serum and urine osmolarity. Will get thyroid functions as well as a fasting cortisol to exclude other causes. Might need to stop the Lexapro. She is asymptomatic from this. PLAN: Discharge tomorrow if remains stable.
[2016-12-14 13:39] LABS: FREE T4 0.98 NG/DL (0.76-1.46)
[2016-12-14 14:00] VITALS: BP 104/52
[2016-12-14 20:17] VITALS: BP 107/51
[2016-12-14] MEDS: SIMVASTATIN 40 MG TAB PO SCH (20:30)
[2016-12-14] MEDS: BUDESONIDE EC 3 MG CAP (ENTOCORT EC) PO SCH (20:30)
[2016-12-14] MEDS: ANUSOL HC CREAM 30GM TOP SCH (20:31)
[2016-12-15 04:22] VITALS: BP 126/62
[2016-12-15] MEDS: LEVOTHYROXINE 25MCG TABLET (0.025MG) PO SCH (05:31)
[2016-12-15 07:10] LABS: BASO # 0.1 10^3/uL (0.0-0.2); BASO % 0.8 % (0.0-1.0); EOS # 0.1 10^3/uL (0.0-0.50); EOS % 1.7 % (0.0-3.0); IMMATURE GRANULOCYTE % 0.3 % (0-0); LYMPH # 1.3 10^3/uL (1.5-4.5); LYMPH % 19.7 % (24.0-44.0); MEAN CORPUSCULAR HEMOGLOBIN 28.3 pg (27.0-33.0); MEAN CORPUSCULAR VOLUME 88.6 fl (80.0-96.0); MONO # 0.7 10^3/uL (0.0-0.8); MONO % 10.2 % (0.0-5.0); NEUTROPHILS # 4.3 10^3/uL (1.8-7.7); NEUTROPHILS % 67.3 % (36.0-66.0); PLATELET COUNT, AUTOMATED 273 10^3/uL (150-450); RED CELL DISTRIBUTION WIDTH 15.8 % (11.5-14.5); WHITE BLOOD COUNT 6.4 10^3/uL (4.0-10.0)
[2016-12-15 07:28] LABS: ANION GAP 9 MEQ/L (8-16); BLOOD UREA NITROGEN 10 MG/DL (7-18); CALCIUM LEVEL 8.8 MG/DL (8.8-10.2); CARBON DIOXIDE LEVEL 27 MEQ/L (21-32); CHLORIDE LEVEL 95 MEQ/L (98-107); CREATININE FOR GFR 0.75 MG/DL (0.55-1.02); GLOMERULAR FILTRATION RATE > 60.0 (>39); GLUCOSE, FASTING 104 MG/DL (83-110); MAGNESIUM LEVEL 1.8 MG/DL (1.8-2.4); POTASSIUM SERUM 4.6 MEQ/L (3.5-5.1); SODIUM LEVEL 131 MEQ/L (136-145)
[2016-12-15] MEDS: TIOTROPIUM INHALER/CAPSULE (SPIRIVA) INH SCH (08:29)
[2016-12-15] MEDS: IPRATROPIUM 0.5MG/ALBUTEROL 2.5MG INH SOL UD 3ML (DUONEB)(J7620) INH SCH (08:30)
[2016-12-15] MEDS: OMEPRAZOLE 20 MG CAP PO SCH (09:20)
[2016-12-15] MEDS: ANUSOL HC CREAM 30GM TOP SCH (09:20)
[2016-12-15] MEDS: PRIMIDONE 50 MG TAB PO SCH (09:20)
[2016-12-15 09:21] VITALS: BP 126/62
[2016-12-15] MEDS: RAMIPRIL 5 MG CAP PO SCH (09:21)
[2016-12-15] MEDS: CYANOCOBALAMIN 500 MCG TAB PO SCH (09:21)
[2016-12-15] MEDS: MEMANTINE 5MG TABLET (NAMENDA) PO SCH (09:21)
[2016-12-15] MEDS: ESCITALOPRAM OXALATE 10 MG TAB (LEXAPRO) PO SCH (09:21)
[2016-12-15] MEDS ORDERED: RAMI5CA PO (09:44)
[2016-12-15] MEDS ORDERED: MAPA325T3 PO (09:44)
[2016-12-15] MEDS ORDERED: PERCOCET PO (09:44)
--- NOTE | 2016-12-15 10:44 | DSES ---
DATE OF ADMISSION: 12/12/2016 DATE OF DISCHARGE: 12/15/2016 PRIMARY CARE PROVIDER (PCP): Dr. Galileo Adams ATTENDING PHYSICIAN: Dr. Sanya Lester HISTORY OF PRESENT ILLNESS: Kayla Bliss is a 76-year-old female patient who follows with Dr. Adams, who has a history of Alzheimer's disease as well as hypertension. Patient was recently seen and treated for a spontaneous intracranial hemorrhage. She was recently released, and she began having headaches since being home, which increased in severity; and therefore, she came back to the emergency department. The emergency department spoke with Dr. Sawant, the neurosurgeon, who felt there was no neurosurgical intervention necessary. Dr. Soto, the neurologist, was also spoken to that recommended keeping blood pressure control of less than 140/90. The patient's blood pressure was elevated upon arrival so, therefore, her blood pressure was lowered. Patient's ramipril was increased from 5 mg to 10 mg, and she will be discharged home on the 10 mg dose. Her headaches improved during the course of her hospitalization. She did require Percocet for pain control, and she will be sent home with a few days of Percocet to use as needed. She did have some hyponatremia. However, on the day of discharge, her sodium was trending up to 131. Dr. Lester was concerned about possible syndrome of inappropriate secretion of antidiuretic hormone (SIADH), as the patient is on a selective serotonin reuptake inhibitor (SSRI). Serum osmolarity was obtained that was slightly low at 273. A morning cortisol sample is pending at time of discharge. I will defer to patient's PCP upon followup to recheck and/or further workup the hyponatremia. For now, no changes are made. Patient has been working with physical therapy. Upon her previous release, she did have home health services that will be reinstated. Plan is for discharge with followup with Dr. Adams, her PCP, next week. PHYSICAL EXAM: Vitals: Temperature 97.6, pulse 60, respiratory rate 16, blood pressure is 126/62, pulse oximetry 96% on room air. LABS: WBC 6.4, hemoglobin 11.9, hematocrit 37.2, platelets 273. Sodium 131, potassium 4.6, chloride 95, carbon dioxide 27, BUN 10, creatinine 0.75, glucose 104, calcium 8.8, magnesium 1.8. MEDICATIONS: - acetaminophen 650 mg every 4 hours as needed pain or fever - Percocet 5/225 mg one tablet every 6 hours as needed pain for 3 days with maximum daily dose four - Ramipril 10 mg by mouth daily - Combivent one puff twice a day - vitamin C daily - Entocort EC 3 mg by mouth daily - calcium with vitamin D by mouth daily - vitamin B12, 1000 mcg by mouth daily - donepezil 5 mg by mouth nightly - Lexapro 10 mg by mouth daily - Synthroid 25 mcg by mouth daily - lidocaine patches as needed - Amitiza 8 mcg by mouth daily - magnesium 400 mg by mouth daily - memantine 5 mg by mouth twice a day - multivitamin by mouth daily - Prilosec 40 mg daily - primidone 50 mg by mouth daily - simvastatin 40 mg by mouth nightly - Spiriva one puff daily - Reclast as directed DISCHARGE INSTRUCTIONS: Followup with Dr. Adams next week. Activity as tolerated with assist. Diet is no added salt. Home health services. DISCHARGE DIAGNOSES: 1. Intractable headaches. 2. Hypertension. 3. Intracranial hemorrhage. 4. Dementia. 5. Hyponatremia. Edited: [facility] 12/16/2016 [id number]
[2016-12-15 11:16] LABS: CORTISOL AM 6.7 UG/DL (4.3-22.4)
[2016-12-15] MEDS: PERCOCET 5MG/325MG TAB PO PRN (12:03)
== END 2016-12-15 12:12 | disposition home health service (06) | DRG 304 ==
LOC: EDBD 13:10 → M ED 13:10 → M ED INP 18:09 → M ICU 20:13 → M MS4PR 12-14 00:13 → OBSVTOIN 12-14 13:08
PROVIDERS: ADMIT Hospitalist; ATTEND Family Medicine
DX: I10 Essential (primary) hypertension (principal); I63.9 Cerebral infarction, unspecified; E87.1 Hypo-osmolality and hyponatremia; K50.90 Crohn's disease, unspecified, without complications; Z66 Do not resuscitate; J44.9 Chronic obstructive pulmonary disease, unspecified; K21.9 Gastro-esophageal reflux disease without esophagitis; E03.9 Hypothyroidism, unspecified; R73.01 Impaired fasting glucose; G30.9 Alzheimer's disease, unspecified; F02.80 Dementia in other diseases classified elsewhere, unspecified severity, without behavioral disturbance, psychotic disturbance, mood disturbance, and anxiety; E78.5 Hyperlipidemia, unspecified; Z85.44 Personal history of malignant neoplasm of other female genital organs; Z95.0 Presence of cardiac pacemaker; Z90.710 Acquired absence of both cervix and uterus; Z90.722 Acquired absence of ovaries, bilateral; Z98.41 Cataract extraction status, right eye; Z98.42 Cataract extraction status, left eye; Z87.891 Personal history of nicotine dependence; Z88.0 Allergy status to penicillin; Z88.2 Allergy status to sulfonamides; Z88.8 Allergy status to other drugs, medicaments and biological substances

== ENCOUNTER 2016-12-27 12:49 | Emergency (ER) | payer MEDICARE, OTHER ==
[~2016-12-27] VITALS: Ht 154.9 cm; Wt 65.3 kg
[~2016-12-27 12:49] MED LIST changes: +MAPA325T3 PO; +PERCOCET PO
[2016-12-27 13:41] LABS: BASO % 0.7 % (0.0-1.0); EOS # 0.1 10^3/uL (0.0-0.50); IMMATURE GRANULOCYTE % 0.3 % (0-0); LYMPH # 1.6 10^3/uL (1.5-4.5); LYMPH % 26.6 % (24.0-44.0); MEAN CORPUSCULAR HEMOGLOBIN 29.1 pg (27.0-33.0); MEAN CORPUSCULAR HGB CONC 33.8 g/dl (32.0-36.5); MEAN CORPUSCULAR VOLUME 86.2 fl (80.0-96.0); MONO # 0.7 10^3/uL (0.0-0.8); MONO % 11.6 % (0.0-5.0); NEUTROPHILS # 3.5 10^3/uL (1.8-7.7); NEUTROPHILS % 58.8 % (36.0-66.0); PLATELET COUNT, AUTOMATED 258 10^3/uL (150-450); RED CELL DISTRIBUTION WIDTH 15.7 % (11.5-14.5); WHITE BLOOD COUNT 5.9 10^3/uL (4.0-10.0)
[2016-12-27 13:56] LABS: ALBUMIN 3.4 GM/DL (3.2-5.2); ALBUMIN/GLOBULIN RATIO 0.79 (1.00-1.93); ALKALINE PHOSPHATASE 37 U/L (45-117); ALT/SGPT 20 U/L (12-78); ANION GAP 7 MEQ/L (8-16); BILIRUBIN,DIRECT 0.1 MG/DL (0.0-0.2); BILIRUBIN,TOTAL 0.3 MG/DL (0.2-1.0); BLOOD UREA NITROGEN 8 MG/DL (7-18); CALCIUM LEVEL 9.2 MG/DL (8.8-10.2); CARBON DIOXIDE LEVEL 31 MEQ/L (21-32); CHLORIDE LEVEL 89 MEQ/L (98-107); CREATININE FOR GFR 0.64 MG/DL (0.55-1.02); GLOMERULAR FILTRATION RATE > 60.0 (>39); GLUCOSE, FASTING 85 MG/DL (83-110); POTASSIUM SERUM 4.7 MEQ/L (3.5-5.1); SODIUM LEVEL 127 MEQ/L (136-145); TOTAL PROTEIN 7.7 GM/DL (6.4-8.2)
[2016-12-27] MEDS ORDERED: hydrALAZINE INJ 20 MG/ML VIAL IV ONE (14:00)
[2016-12-27 14:01] LABS: AST/SGOT 20 U/L (15-37)
[2016-12-27] MEDS ORDERED: **hydrALAZINE** 10 MG TAB PO ONE (14:15)
--- NOTE | 2016-12-27 14:24 | REP ---
CT HEAD WITHOUT CONTRAST: HISTORY: Altered mental status. COMPARISON: 12/05/2016 and 12/12/2016. A resolving hematoma is present in the posterior left parietal lobe. The hematoma is iso- to hypodense. A small amount of surrounding edema is present. There is no midline shift. Areas of decreased attenuation are present in the periventricular white matter. This represents small vessel ischemic disease. There is no acute intraparenchymal hemorrhage or mass. The ventricular system is normal in appearance. The cortical sulci are dilated consistent with minimal volume loss. There is no extracerebral collection. IMPRESSION: 1. Resolving left parietal lobe intraparenchymal hematoma. 2. Small vessel ischemic disease. 3. Minimal volume loss. Signed by Jam Pollard MD 12/27/2016 02:40 P
[2016-12-27 14:29] VITALS: BP 162/72
[2016-12-27] MEDS ORDERED: PERCOCET 5MG/325MG TAB PO ONE (15:15)
[2016-12-27] MEDS ORDERED: OXYC1TAB23 PO (15:26)
[2016-12-27] MEDS ORDERED: RAMI5CA PO (15:26)
[2016-12-27 15:50] VITALS: BP 167/70
--- NOTE | 2016-12-28 08:19 | ECGEPIP ---
Stationary ECG Study [facility] - ED Test Date: 2016-12-27 Pat Name: CARMENCITA SORENSON Department: Room: - Gender: F Repair Clerk: JT : [id number] Requested By: HELGA Hodge Order Number: [id number] Reading MD: Leia Monroy Measurements Intervals [place] Rate: 66 P: 137 VT: 234 QRS: -37 QRSD: 74 T: -11 QT: 412 QTc: 432 Interpretive Statements ELECTRONIC ATRIAL PACEMAKER MARKED LEFT AXIS DEVIATION VOLTAGE CRITERIA FOR LVH POSSIBLE SEPTAL MYOCARDIAL INFARCTION, OF INDETERMINATE AGE SIMILAR 02/24/14 Electronically Signed On 12-28-2016 8:19:14 EDT by Leia Monroy
== END 2016-12-27 15:52 | disposition home or self-care (01) ==
LOC: M ED 12:49
DX: I10 Essential (primary) hypertension (principal); E87.1 Hypo-osmolality and hyponatremia; J44.9 Chronic obstructive pulmonary disease, unspecified; K21.9 Gastro-esophageal reflux disease without esophagitis; E03.9 Hypothyroidism, unspecified; I47.2 Ventricular tachycardia; F17.210 Nicotine dependence, cigarettes, uncomplicated; Z88.0 Allergy status to penicillin; Z88.2 Allergy status to sulfonamides; Z88.8 Allergy status to other drugs, medicaments and biological substances; Z91.018 Allergy to other foods; Z79.899 Other long term (current) drug therapy

== ENCOUNTER → 2016-12-29 | Outpatient (CLI) | payer MEDICARE, OTHER ==
[~2016-12-29] MED LIST changes: +ISOVUE-370 76% 100ML VIAL (Q9967) As Ordered ONE; +OXYC1TAB23 PO
[2016-12-29 10:49] LABS: BASO % 0.4 % (0.0-1.0); EOS # 0.1 10^3/uL (0.0-0.50); EOS % 1.8 % (0.0-3.0); IMMATURE GRANULOCYTE % 0.3 % (0-0); LYMPH # 1.1 10^3/uL (1.5-4.5); LYMPH % 15.6 % (24.0-44.0); MEAN CORPUSCULAR HEMOGLOBIN 28.7 pg (27.0-33.0); MEAN CORPUSCULAR HGB CONC 32.5 g/dl (32.0-36.5); MEAN CORPUSCULAR VOLUME 88.3 fl (80.0-96.0); MONO # 0.8 10^3/uL (0.0-0.8); MONO % 11.1 % (0.0-5.0); NEUTROPHILS # 5.2 10^3/uL (1.8-7.7); NEUTROPHILS % 70.8 % (36.0-66.0); PLATELET COUNT, AUTOMATED 247 10^3/uL (150-450); RED CELL DISTRIBUTION WIDTH 15.7 % (11.5-14.5); WHITE BLOOD COUNT 7.3 10^3/uL (4.0-10.0)
[2016-12-29 11:23] LABS: ALBUMIN 3.5 GM/DL (3.2-5.2); ALBUMIN/GLOBULIN RATIO 0.76 (1.00-1.93); ALKALINE PHOSPHATASE 41 U/L (45-117); ALT/SGPT 22 U/L (12-78); ANION GAP 5 MEQ/L (8-16); AST/SGOT 19 U/L (15-37); BILIRUBIN,TOTAL 0.3 MG/DL (0.2-1.0); BLOOD UREA NITROGEN 8 MG/DL (7-18); CALCIUM LEVEL 8.9 MG/DL (8.8-10.2); CARBON DIOXIDE LEVEL 33 MEQ/L (21-32); CHLORIDE LEVEL 94 MEQ/L (98-107); CREATININE FOR GFR 0.75 MG/DL (0.55-1.02); GLOMERULAR FILTRATION RATE > 60.0 (>39); GLUCOSE, FASTING 98 MG/DL (83-110); POTASSIUM SERUM 4.3 MEQ/L (3.5-5.1); SODIUM LEVEL 132 MEQ/L (136-145); TOTAL PROTEIN 8.1 GM/DL (6.4-8.2)
[2016-12-29 11:31] LABS: OSMOLALITY SERUM 187 MOSM/KG (280-301)
--- NOTE | 2016-12-29 14:15 | REP ---
CT CHEST WITH IV CONTRAST: TECHNIQUE: Axial contrast enhanced images from the thoracic inlet to the upper abdomen using 100 mL Isovue 370 intravenous contrast material with multiplanar reformations. COMPARISON: 09/15/2015 There is again moderately severe diffuse interstitial fibrosis diffusely bilaterally. Interstitial opacities have increased since the prior study suggesting progressive fibrosis bilaterally. Bullous change in the right upper lobe inferior aspect is stable. Mild bronchiectasis bilaterally is unchanged. The heart is mildly enlarged. There is no pleural or pericardial effusion. There is no mediastinal, chest wall or hilar adenopathy. There are atherosclerotic calcifications of the thoracic aorta without aneurysm or dissection. The visualized upper abdominal structures appear essentially unremarkable. There is a cyst in the upper pole of the left kidney. There are degenerative changes of the spine. IMPRESSION: Moderately severe diffuse interstitial fibrosis with probably some mild progression since the prior studies, most recent of which is 09/15/2015. Signed by Kendrick Vora MD 12/29/2016 05:36 P
== END ==
LOC: M LAB 09:45
PROVIDERS: ATTEND Family Medicine
DX: E22.2 Syndrome of inappropriate secretion of antidiuretic hormone (principal)
CPT/HCPCS: 71260; 80053; 83735; 83930; 83935; 85025; Q9967

== ENCOUNTER → 2017-01-16 | Outpatient (REF) | payer MEDICARE, OTHER ==
[~2017-01-16] MED LIST changes: -ISOVUE-370 76% 100ML VIAL (Q9967) As Ordered ONE
[2017-01-16 16:25] LABS: ALBUMIN 3.7 GM/DL (3.2-5.2); ALBUMIN/GLOBULIN RATIO 0.86 (1.00-1.93); ALKALINE PHOSPHATASE 38 U/L (45-117); ALT/SGPT 24 U/L (12-78); ANION GAP 7 MEQ/L (8-16); AST/SGOT 18 U/L (7-37); BILIRUBIN,TOTAL 0.3 MG/DL (0.2-1.0); BLOOD UREA NITROGEN 10 MG/DL (7-18); CALCIUM LEVEL 9.6 MG/DL (8.8-10.2); CARBON DIOXIDE LEVEL 31 MEQ/L (21-32); CHLORIDE LEVEL 94 MEQ/L (98-107); FREE T4 0.99 NG/DL (0.76-1.46); GLOMERULAR FILTRATION RATE > 60.0 (>39); GLUCOSE, FASTING 104 MG/DL (83-110); POTASSIUM SERUM 4.6 MEQ/L (3.5-5.1); SODIUM LEVEL 132 MEQ/L (136-145)
== END ==
LOC: M SFHCPLAZ 14:40
PROVIDERS: ATTEND Family Medicine
DX: E03.9 Hypothyroidism, unspecified (principal)
CPT/HCPCS: 36415; 80053; 83735; 84439; 84443; G0463

== ENCOUNTER 2017-01-26 08:52 | Outpatient (CLI) | payer MEDICARE, OTHER ==
[~2017-01-26] VITALS: Ht 157.5 cm; Wt 57.0 kg
[2017-01-26] MEDS ORDERED: ZOLEDRONIC ACID 5 MG in APPROPRIATE DILUENT 1 EA IV ONE (09:15)
== END 2017-01-26 10:00 | disposition home or self-care (01) ==
LOC: M INFU 08:52
PROVIDERS: ATTEND Family Medicine
DX: M85.80 Other specified disorders of bone density and structure, unspecified site (principal); Z78.0 Asymptomatic menopausal state; Z72.0 Tobacco use; Z85.41 Personal history of malignant neoplasm of cervix uteri; Z88.8 Allergy status to other drugs, medicaments and biological substances; Z88.0 Allergy status to penicillin; Z88.2 Allergy status to sulfonamides; Z91.018 Allergy to other foods; Z79.899 Other long term (current) drug therapy
CPT/HCPCS: 96365; J3489

== ENCOUNTER → 2017-05-09 | Outpatient (REF) | payer MEDICARE, OTHER, MEDICAID | LOC: M SMT 17:21 | DX: L29.8 Other pruritus (principal) | CPT/HCPCS: 87070; 87186 ==

== ENCOUNTER → 2017-06-05 | Outpatient (CLI) | payer MEDICARE, OTHER, MEDICAID | LOC: M WHC 10:00 | DX: Z12.31 Encounter for screening mammogram for malignant neoplasm of breast (principal); Z78.0 Asymptomatic menopausal state | CPT/HCPCS: 77067 ==

== ENCOUNTER → 2017-07-28 | Outpatient (CLI) | payer MEDICARE, OTHER, MEDICAID ==
[2017-07-28 11:07] LABS: BASO # 0.1 10^3/uL (0.0-0.2); BASO % 0.8 % (0.0-1.0); EOS # 0.1 10^3/uL (0.0-0.50); EOS % 1.8 % (0.0-3.0); HEMATOCRIT 39.4 % (36.0-47.0); HEMOGLOBIN 12.7 g/dl (12.0-15.5); IMMATURE GRANULOCYTE % 0.4 % (0-3.0); LYMPH # 1.4 10^3/uL (1.5-4.5); LYMPH % 17.5 % (24.0-44.0); MEAN CORPUSCULAR HGB CONC 32.2 g/dl (32.0-36.5); MONO # 0.9 10^3/uL (0.0-0.8); MONO % 11.3 % (0.0-5.0); NEUTROPHILS # 5.3 10^3/uL (1.8-7.7); NEUTROPHILS % 68.2 % (36.0-66.0); PLATELET COUNT, AUTOMATED 310 10^3/uL (150-450); RED BLOOD COUNT 4.38 10^6/uL (4.00-5.40); RED CELL DISTRIBUTION WIDTH 14.6 % (11.5-14.5); RETIC HEMOGLOBIN EQUIVALENT 31.7 pg (24-36); RETICULOCYTE # 89.4 10^9/L (17-77); WHITE BLOOD COUNT 7.7 10^3/uL (4.0-10.0)
[2017-07-28 11:32] LABS: VITAMIN B12 LEVEL 1011 PG/ML (247-911)
[2017-07-28 11:36] LABS: ESTIMATED AVERAGE GLUCOSE 120 MG/DL (60-110); HEMOGLOBIN A1c 5.8 %
[2017-07-28 11:44] LABS: ALBUMIN 3.4 GM/DL (3.2-5.2); ALBUMIN/GLOBULIN RATIO 0.74 (1.00-1.93); ALKALINE PHOSPHATASE 49 U/L (45-117); ALT/SGPT 18 U/L (12-78); ANION GAP 5 MEQ/L (8-16); AST/SGOT 19 U/L (7-37); BILIRUBIN,TOTAL 0.3 MG/DL (0.2-1.0); BLOOD UREA NITROGEN 7 MG/DL (7-18); CALCIUM LEVEL 9.4 MG/DL (8.8-10.2); CARBON DIOXIDE LEVEL 31 MEQ/L (21-32); CHLORIDE LEVEL 101 MEQ/L (98-107); CHOLESTEROL LEVEL 153 MG/DL (<200); CHOLESTEROL RISK RATIO 2.283 (<5); CPK CREATINE PHOSPHOKINASE 74 U/L (26-192); CREATININE FOR GFR 0.77 MG/DL (0.55-1.30); FREE T4 0.81 NG/DL (0.76-1.46); GLOMERULAR FILTRATION RATE > 60.0 (>39); GLUCOSE, FASTING 106 MG/DL (70-100); HDL CHOLESTEROL 67 MG/DL (>40); LDL CHOLESTEROL 65.8 MG/DL (<100); NON-HDL-C 86 MG/DL; POTASSIUM SERUM 4.5 MEQ/L (3.5-5.1); SODIUM LEVEL 137 MEQ/L (136-145); TRIGLYCERIDES LEVEL 101 MG/DL (<150)
== END ==
LOC: M LAB 10:23
DX: D51.8 Other vitamin B12 deficiency anemias (principal); I10 Essential (primary) hypertension; E78.5 Hyperlipidemia, unspecified; Z79.899 Other long term (current) drug therapy
CPT/HCPCS: 82550

== ENCOUNTER 2017-09-17 15:42 | Inpatient (IN) | payer MEDICARE, OTHER, MEDICAID ==
[2017-09-17 16:06] LABS: BEDSIDE GLUCOSE 109 MG/DL (83-110)
[2017-09-17 16:31] LABS: BASO # 0.1 10^3/uL (0.0-0.2); BASO % 0.7 % (0.0-1.0); EOS # 0.2 10^3/uL (0.0-0.50); EOS % 2.1 % (0.0-3.0); HEMATOCRIT 38.9 % (36.0-47.0); HEMOGLOBIN 12.5 g/dl (12.0-15.5); IMMATURE GRANULOCYTE % 0.3 % (0-3.0); LYMPH # 1.9 10^3/uL (1.5-4.5); LYMPH % 26.3 % (24.0-44.0); MEAN CORPUSCULAR HEMOGLOBIN 28.7 pg (27.0-33.0); MEAN CORPUSCULAR HGB CONC 32.1 g/dl (32.0-36.5); MEAN CORPUSCULAR VOLUME 89.2 fl (80.0-96.0); MONO % 14.8 % (0.0-5.0); NEUTROPHILS # 3.9 10^3/uL (1.8-7.7); NEUTROPHILS % 55.8 % (36.0-66.0); PLATELET COUNT, AUTOMATED 267 10^3/uL (150-450); RED BLOOD COUNT 4.36 10^6/uL (4.00-5.40); RED CELL DISTRIBUTION WIDTH 14.8 % (11.5-14.5)
[2017-09-17] MEDS: NS 1,000 ML IV ×3 (16:35→22:29)
[2017-09-17] MEDS: MORPHINE 2 MG/ML 1ML SYRINGE (J2270) IV ×2 (16:35→18:48)
[2017-09-17] MEDS: ONDANSETRON 4MG/2ML VIAL (J2405) IV (16:35)
[2017-09-17 16:52] LABS: ALBUMIN 3.3 GM/DL (3.2-5.2); ALBUMIN/GLOBULIN RATIO 0.73 (1.00-1.93); ALKALINE PHOSPHATASE 55 U/L (45-117); ALT/SGPT 16 U/L (12-78); AMYLASE 57 U/L (25-115); ANION GAP 8 MEQ/L (8-16); AST/SGOT 17 U/L (7-37); BILIRUBIN,DIRECT < 0.1 MG/DL (0.0-0.2); BILIRUBIN,TOTAL 0.2 MG/DL (0.2-1.0); BLOOD UREA NITROGEN 8 MG/DL (7-18); CALCIUM LEVEL 8.7 MG/DL (8.8-10.2); CARBON DIOXIDE LEVEL 29 MEQ/L (21-32); CHLORIDE LEVEL 99 MEQ/L (98-107); CPK CREATINE PHOSPHOKINASE 68 U/L (26-192); GLOMERULAR FILTRATION RATE > 60.0 (>39); GLUCOSE, FASTING 90 MG/DL (70-100); LIPASE 80 U/L (73-393); POTASSIUM SERUM 4.5 MEQ/L (3.5-5.1); SODIUM LEVEL 136 MEQ/L (136-145); TOTAL PROTEIN 7.8 GM/DL (6.4-8.2); TROPONIN I < 0.02 NG/ML (< 0.10)
[2017-09-17 16:52] LABS: LACTIC ACID SEPSIS PROTOCOL 1.9 MMOL/L (0.4-2.0)
[2017-09-17 16:53] LABS: CK-MB VALUE MASS < 1.0 NG/ML (<3.6); MB/CK RELATIVE INDEX 1.47 (< OR =4)
[2017-09-17 16:55] LABS: INR 0.95; PARTIAL THROMBOPLASTIN TIME 31.5 SECONDS (25.4-37.6); PROTHROMBIN TIME 12.8 SECONDS (12.1-14.4)
[2017-09-17] MEDS ORDERED: ISOVUE-370 76% 100ML VIAL (Q9967) As Ordered (17:03)
[2017-09-17 17:13] LABS: KETONE, URINE AUTO RFX NEGATIVE (NEGATIVE); NITRITE, URINE AUTO RFX NEGATIVE (NEGATIVE); RBC, URINE AUTO RFX 16 /HPF (0-3); SPECIFIC GRAVITY UR AUTO RFX 1.011 (1.002-1.035); SQUAM EPITHELIAL CELL UR AURFX 3 /HPF (0-6)
[2017-09-17 17:14] LABS: LEUKOCYTE ESTERASE UR AUTO RFX 3+ (NEGATIVE); WBC, URINE AUTO RFX TNTC /HPF (0-3)
[2017-09-17] MEDS ORDERED: ACETAMINOPHEN TAB 650MG DOSE (2X325MG) PO (20:00)
[2017-09-17] MEDS ORDERED: PERCOCET 5MG/325MG TAB PO (20:00)
[2017-09-17] MEDS ORDERED: ONDANSETRON 4MG/2ML VIAL (J2405) IV (20:00)
[2017-09-17] MEDS ORDERED: SIMVASTATIN 40 MG TAB PO (21:00)
[2017-09-17] MEDS: CIPROFLOXACIN 400 MG in APPROPRIATE DILUENT 1 EA IV (22:26)
[2017-09-17] MEDS: RAMIPRIL 5 MG CAP PO (22:28)
[2017-09-17] MEDS: BUDESONIDE EC 3 MG CAP (ENTOCORT EC) PO (22:29)
[2017-09-18 07:25] LABS: BASO # 0.1 10^3/uL (0.0-0.2); BASO % 0.6 % (0.0-1.0); EOS # 0.1 10^3/uL (0.0-0.50); EOS % 1.6 % (0.0-3.0); HEMATOCRIT 36.4 % (36.0-47.0); HEMOGLOBIN 11.7 g/dl (12.0-15.5); IMMATURE GRANULOCYTE % 0.2 % (0-3.0); LYMPH # 1.2 10^3/uL (1.5-4.5); LYMPH % 14.6 % (24.0-44.0); MEAN CORPUSCULAR HEMOGLOBIN 28.5 pg (27.0-33.0); MEAN CORPUSCULAR HGB CONC 32.1 g/dl (32.0-36.5); MEAN CORPUSCULAR VOLUME 88.6 fl (80.0-96.0); MONO # 0.7 10^3/uL (0.0-0.8); NEUTROPHILS # 6.1 10^3/uL (1.8-7.7); PLATELET COUNT, AUTOMATED 238 10^3/uL (150-450); RED BLOOD COUNT 4.11 10^6/uL (4.00-5.40); RED CELL DISTRIBUTION WIDTH 14.8 % (11.5-14.5); WHITE BLOOD COUNT 8.2 10^3/uL (4.0-10.0)
[2017-09-18] MEDS: LEVOTHYROXINE 25MCG TABLET (0.025MG) PO (07:34)
[2017-09-18 07:52] LABS: ALBUMIN 2.9 GM/DL (3.2-5.2); ALBUMIN/GLOBULIN RATIO 0.71 (1.00-1.93); ALKALINE PHOSPHATASE 47 U/L (45-117); ALT/SGPT 14 U/L (12-78); ANION GAP 4 MEQ/L (8-16); AST/SGOT 15 U/L (7-37); BILIRUBIN,TOTAL 0.2 MG/DL (0.2-1.0); BLOOD UREA NITROGEN 6 MG/DL (7-18); CALCIUM LEVEL 8.1 MG/DL (8.8-10.2); CARBON DIOXIDE LEVEL 31 MEQ/L (21-32); CHLORIDE LEVEL 105 MEQ/L (98-107); CREATININE FOR GFR 0.81 MG/DL (0.55-1.30); GLOMERULAR FILTRATION RATE > 60.0 (>39); GLUCOSE, FASTING 92 MG/DL (70-100); MAGNESIUM LEVEL 1.9 MG/DL (1.8-2.4); POTASSIUM SERUM 4.7 MEQ/L (3.5-5.1); SODIUM LEVEL 140 MEQ/L (136-145)
[2017-09-18] MEDS: PRIMIDONE 50 MG TAB PO (08:00)
[2017-09-18] MEDS: ESCITALOPRAM OXALATE 10 MG TAB (LEXAPRO) PO (08:02)
[2017-09-18] MEDS: CIPROFLOXACIN 400 MG in APPROPRIATE DILUENT 1 EA IV ×2 (08:02→20:36)
[2017-09-18] MEDS: PANTOPRAZOLE 40MG TAB (PROTONIX) PO (08:02)
[2017-09-18] MEDS: RAMIPRIL 5 MG CAP PO ×2 (08:02→20:37)
[2017-09-18] MEDS: IPRATROPIUM 0.5MG/ALBUTEROL 2.5MG INH SOL UD 3ML (DUONEB)(J7620) NEB ×5 (08:09→20:31)
[2017-09-18 08:37] LABS: ERYTHROCYTE SEDIMENTATION RATE 40 mm/hr (0-30)
[2017-09-18] MEDS ORDERED: TIOTROPIUM INHALER/CAPSULE (SPIRIVA) INH (09:00)
[2017-09-18] MEDS: NS 1,000 ML IV (13:32)
[2017-09-18] MEDS: BUDESONIDE EC 3 MG CAP (ENTOCORT EC) PO (20:36)
[2017-09-19] MEDS: NS 1,000 ML IV (04:30)
[2017-09-19] MEDS: LEVOTHYROXINE 25MCG TABLET (0.025MG) PO (05:35)
[2017-09-19 06:21] LABS: BASO % 0.4 % (0.0-1.0); EOS # 0.1 10^3/uL (0.0-0.50); EOS % 1.7 % (0.0-3.0); HEMATOCRIT 35.5 % (36.0-47.0); HEMOGLOBIN 11.2 g/dl (12.0-15.5); IMMATURE GRANULOCYTE % 0.3 % (0-3.0); LYMPH # 1.2 10^3/uL (1.5-4.5); LYMPH % 16.9 % (24.0-44.0); MEAN CORPUSCULAR HEMOGLOBIN 27.9 pg (27.0-33.0); MEAN CORPUSCULAR HGB CONC 31.5 g/dl (32.0-36.5); MEAN CORPUSCULAR VOLUME 88.5 fl (80.0-96.0); MONO # 0.8 10^3/uL (0.0-0.8); MONO % 11.9 % (0.0-5.0); NEUTROPHILS # 4.7 10^3/uL (1.8-7.7); NEUTROPHILS % 68.8 % (36.0-66.0); PLATELET COUNT, AUTOMATED 246 10^3/uL (150-450); RED BLOOD COUNT 4.01 10^6/uL (4.00-5.40); WHITE BLOOD COUNT 6.9 10^3/uL (4.0-10.0)
[2017-09-19 06:47] LABS: ALBUMIN 2.8 GM/DL (3.2-5.2); ALBUMIN/GLOBULIN RATIO 0.64 (1.00-1.93); ALKALINE PHOSPHATASE 44 U/L (45-117); ALT/SGPT 15 U/L (12-78); ANION GAP 5 MEQ/L (8-16); AST/SGOT 16 U/L (7-37); BILIRUBIN,TOTAL 0.2 MG/DL (0.2-1.0); BLOOD UREA NITROGEN 4 MG/DL (7-18); CALCIUM LEVEL 8.4 MG/DL (8.8-10.2); CARBON DIOXIDE LEVEL 32 MEQ/L (21-32); CHLORIDE LEVEL 105 MEQ/L (98-107); CREATININE FOR GFR 0.75 MG/DL (0.55-1.30); GLOMERULAR FILTRATION RATE > 60.0 (>39); GLUCOSE, FASTING 93 MG/DL (70-100); POTASSIUM SERUM 4.2 MEQ/L (3.5-5.1); SODIUM LEVEL 142 MEQ/L (136-145); TOTAL PROTEIN 7.2 GM/DL (6.4-8.2)
[2017-09-19] MEDS: PRIMIDONE 50 MG TAB PO (09:32)
[2017-09-19] MEDS: RAMIPRIL 5 MG CAP PO ×2 (09:32→20:38)
[2017-09-19] MEDS: LevoFLOXacin 500 MG TABLET PO (09:32)
[2017-09-19] MEDS: PANTOPRAZOLE 40MG TAB (PROTONIX) PO (09:32)
[2017-09-19] MEDS: ESCITALOPRAM OXALATE 10 MG TAB (LEXAPRO) PO (09:33)
[2017-09-19] MEDS: IPRATROPIUM 0.5MG/ALBUTEROL 2.5MG INH SOL UD 3ML (DUONEB)(J7620) NEB ×3 (11:13→20:15)
[2017-09-19] MEDS: BUDESONIDE EC 3 MG CAP (ENTOCORT EC) PO (20:38)
[2017-09-20] MEDS: LevoFLOXacin 500 MG TABLET PO (06:16)
[2017-09-20] MEDS: LEVOTHYROXINE 25MCG TABLET (0.025MG) PO (06:16)
[2017-09-20 06:52] LABS: BASO % 0.5 % (0.0-1.0); EOS # 0.1 10^3/uL (0.0-0.50); EOS % 1.5 % (0.0-3.0); HEMATOCRIT 37.3 % (36.0-47.0); HEMOGLOBIN 11.8 g/dl (12.0-15.5); IMMATURE GRANULOCYTE % 0.3 % (0-3.0); LYMPH # 1.4 10^3/uL (1.5-4.5); LYMPH % 17.1 % (24.0-44.0); MEAN CORPUSCULAR HEMOGLOBIN 28.2 pg (27.0-33.0); MEAN CORPUSCULAR HGB CONC 31.6 g/dl (32.0-36.5); MONO # 0.9 10^3/uL (0.0-0.8); MONO % 11.8 % (0.0-5.0); NEUTROPHILS # 5.4 10^3/uL (1.8-7.7); NEUTROPHILS % 68.8 % (36.0-66.0); PLATELET COUNT, AUTOMATED 255 10^3/uL (150-450); RED BLOOD COUNT 4.19 10^6/uL (4.00-5.40); RED CELL DISTRIBUTION WIDTH 15.1 % (11.5-14.5); WHITE BLOOD COUNT 7.9 10^3/uL (4.0-10.0)
[2017-09-20 07:10] LABS: ALBUMIN 2.9 GM/DL (3.2-5.2); ALBUMIN/GLOBULIN RATIO 0.63 (1.00-1.93); ALKALINE PHOSPHATASE 46 U/L (45-117); ALT/SGPT 14 U/L (12-78); ANION GAP 2 MEQ/L (8-16); AST/SGOT 17 U/L (7-37); BILIRUBIN,TOTAL 0.2 MG/DL (0.2-1.0); BLOOD UREA NITROGEN 5 MG/DL (7-18); CALCIUM LEVEL 8.9 MG/DL (8.8-10.2); CARBON DIOXIDE LEVEL 32 MEQ/L (21-32); CHLORIDE LEVEL 104 MEQ/L (98-107); CREATININE FOR GFR 0.71 MG/DL (0.55-1.30); GLOMERULAR FILTRATION RATE > 60.0 (>39); GLUCOSE, FASTING 102 MG/DL (70-100); POTASSIUM SERUM 4.2 MEQ/L (3.5-5.1); SODIUM LEVEL 138 MEQ/L (136-145); TOTAL PROTEIN 7.5 GM/DL (6.4-8.2)
[2017-09-20] MEDS: IPRATROPIUM 0.5MG/ALBUTEROL 2.5MG INH SOL UD 3ML (DUONEB)(J7620) NEB ×4 (07:12→20:13)
[2017-09-20] MEDS: RAMIPRIL 5 MG CAP PO ×2 (08:00→20:10)
[2017-09-20] MEDS: PANTOPRAZOLE 40MG TAB (PROTONIX) PO (08:01)
[2017-09-20] MEDS: PRIMIDONE 50 MG TAB PO (08:01)
[2017-09-20] MEDS: ESCITALOPRAM OXALATE 10 MG TAB (LEXAPRO) PO (08:01)
[2017-09-20] MEDS: BUDESONIDE EC 3 MG CAP (ENTOCORT EC) PO (20:09)
[2017-09-21] MEDS: LEVOTHYROXINE 25MCG TABLET (0.025MG) PO (05:46)
[2017-09-21] MEDS: LevoFLOXacin 500 MG TABLET PO (05:46)
[2017-09-21 06:48] LABS: BASO % 0.5 % (0.0-1.0); EOS # 0.2 10^3/uL (0.0-0.50); HEMATOCRIT 37.6 % (36.0-47.0); HEMOGLOBIN 12.2 g/dl (12.0-15.5); IMMATURE GRANULOCYTE % 0.2 % (0-3.0); LYMPH # 1.3 10^3/uL (1.5-4.5); LYMPH % 15.4 % (24.0-44.0); MEAN CORPUSCULAR HGB CONC 32.4 g/dl (32.0-36.5); MEAN CORPUSCULAR VOLUME 86.4 fl (80.0-96.0); MONO # 0.9 10^3/uL (0.0-0.8); MONO % 10.4 % (0.0-5.0); NEUTROPHILS # 5.8 10^3/uL (1.8-7.7); NEUTROPHILS % 71.5 % (36.0-66.0); PLATELET COUNT, AUTOMATED 266 10^3/uL (150-450); RED BLOOD COUNT 4.35 10^6/uL (4.00-5.40); RED CELL DISTRIBUTION WIDTH 14.9 % (11.5-14.5); WHITE BLOOD COUNT 8.2 10^3/uL (4.0-10.0)
[2017-09-21 07:13] LABS: ANION GAP 7 MEQ/L (8-16); BLOOD UREA NITROGEN 9 MG/DL (7-18); CALCIUM LEVEL 9.5 MG/DL (8.8-10.2); CARBON DIOXIDE LEVEL 30 MEQ/L (21-32); CHLORIDE LEVEL 100 MEQ/L (98-107); CREATININE FOR GFR 0.75 MG/DL (0.55-1.30); GLOMERULAR FILTRATION RATE > 60.0 (>39); GLUCOSE, FASTING 104 MG/DL (70-100); POTASSIUM SERUM 4.2 MEQ/L (3.5-5.1); SODIUM LEVEL 137 MEQ/L (136-145)
[2017-09-21 07:14] LABS: ALBUMIN 2.9 GM/DL (3.2-5.2); ALBUMIN/GLOBULIN RATIO 0.59 (1.00-1.93); ALKALINE PHOSPHATASE 47 U/L (45-117); ALT/SGPT 15 U/L (12-78); AST/SGOT 15 U/L (7-37); BILIRUBIN,TOTAL 0.3 MG/DL (0.2-1.0); TOTAL PROTEIN 7.8 GM/DL (6.4-8.2)
[2017-09-21] MEDS: IPRATROPIUM 0.5MG/ALBUTEROL 2.5MG INH SOL UD 3ML (DUONEB)(J7620) NEB ×4 (08:01→20:25)
[2017-09-21] MEDS: ESCITALOPRAM OXALATE 10 MG TAB (LEXAPRO) PO (10:14)
[2017-09-21] MEDS: RAMIPRIL 5 MG CAP PO ×2 (10:14→21:16)
[2017-09-21] MEDS: PRIMIDONE 50 MG TAB PO (10:14)
[2017-09-21] MEDS: PANTOPRAZOLE 40MG TAB (PROTONIX) PO (10:14)
[2017-09-21] MEDS: BUDESONIDE EC 3 MG CAP (ENTOCORT EC) PO (21:15)
[2017-09-22] MEDS: LEVOTHYROXINE 25MCG TABLET (0.025MG) PO (05:31)
[2017-09-22] MEDS: LevoFLOXacin 500 MG TABLET PO (05:31)
[2017-09-22] MEDS: IPRATROPIUM 0.5MG/ALBUTEROL 2.5MG INH SOL UD 3ML (DUONEB)(J7620) NEB ×3 (07:24→15:25)
[2017-09-22] MEDS: PANTOPRAZOLE 40MG TAB (PROTONIX) PO (09:14)
[2017-09-22] MEDS: PRIMIDONE 50 MG TAB PO (09:14)
[2017-09-22] MEDS: RAMIPRIL 5 MG CAP PO (09:16)
[2017-09-22] MEDS: ESCITALOPRAM OXALATE 10 MG TAB (LEXAPRO) PO (09:17)
== END 2017-09-22 17:33 | disposition home health service (06) | DRG 392 ==
LOC: M ED INP 09-18 10:27 → M ED 15:42 → M MSPAV 09-18 15:14 → M ED INP 19:57
PROVIDERS: Family Medicine
DX: K52.9 Noninfective gastroenteritis and colitis, unspecified (principal); N39.0 Urinary tract infection, site not specified; K90.0 Celiac disease; K21.9 Gastro-esophageal reflux disease without esophagitis; E03.9 Hypothyroidism, unspecified; M85.80 Other specified disorders of bone density and structure, unspecified site; I65.23 Occlusion and stenosis of bilateral carotid arteries; J84.10 Pulmonary fibrosis, unspecified; J44.9 Chronic obstructive pulmonary disease, unspecified; R51 Headache; I10 Essential (primary) hypertension; F03.90 Unspecified dementia, unspecified severity, without behavioral disturbance, psychotic disturbance, mood disturbance, and anxiety; B96.20 Unspecified Escherichia coli [E. coli] as the cause of diseases classified elsewhere; Z95.0 Presence of cardiac pacemaker; Z88.0 Allergy status to penicillin; Z87.891 Personal history of nicotine dependence; Z88.2 Allergy status to sulfonamides; Z88.8 Allergy status to other drugs, medicaments and biological substances; Z79.899 Other long term (current) drug therapy; R53.1 Weakness; R53.81 Other malaise

== ENCOUNTER → 2017-10-17 | Outpatient (CLI) | payer MEDICARE, OTHER | LOC: M SLEEP HO 09:55 | DX: G47.33 Obstructive sleep apnea (adult) (pediatric) (principal) | CPT/HCPCS: G0399 ==

== ENCOUNTER → 2017-11-27 | Outpatient (REF) | payer MEDICARE, OTHER, MEDICAID ==
[2017-11-27 13:29] LABS: BASO # 0.1 10^3/uL (0.0-0.2); BASO % 0.8 % (0.0-1.0); EOS # 0.1 10^3/uL (0.0-0.50); EOS % 1.6 % (0.0-3.0); HEMATOCRIT 42.8 % (36.0-47.0); HEMOGLOBIN 13.5 g/dl (12.0-15.5); IMMATURE GRANULOCYTE % 0.4 % (0-3.0); LYMPH # 1.3 10^3/uL (1.5-4.5); LYMPH % 15.5 % (24.0-44.0); MEAN CORPUSCULAR HEMOGLOBIN 27.8 pg (27.0-33.0); MEAN CORPUSCULAR HGB CONC 31.5 g/dl (32.0-36.5); MEAN CORPUSCULAR VOLUME 88.2 fl (80.0-96.0); MONO # 0.9 10^3/uL (0.0-0.8); NEUTROPHILS # 5.9 10^3/uL (1.8-7.7); NEUTROPHILS % 70.7 % (36.0-66.0); PLATELET COUNT, AUTOMATED 307 10^3/uL (150-450); RED BLOOD COUNT 4.85 10^6/uL (4.00-5.40); RED CELL DISTRIBUTION WIDTH 15.6 % (11.5-14.5); RETIC HEMOGLOBIN EQUIVALENT 31.4 pg (24-36); RETICULOCYTE # 78.1 10^9/L (17-77); RETICULOCYTE % 1.6 % (0.5-1.5); WHITE BLOOD COUNT 8.3 10^3/uL (4.0-10.0)
[2017-11-27 13:44] LABS: ALBUMIN 3.2 GM/DL (3.2-5.2); ALBUMIN/GLOBULIN RATIO 0.63 (1.00-1.93); ALKALINE PHOSPHATASE 56 U/L (45-117); ALT/SGPT 16 U/L (12-78); ANION GAP 13 MEQ/L (8-16); AST/SGOT 21 U/L (7-37); BILIRUBIN,TOTAL 0.3 MG/DL (0.2-1.0); BLOOD UREA NITROGEN 9 MG/DL (7-18); CALCIUM LEVEL 9.3 MG/DL (8.8-10.2); CARBON DIOXIDE LEVEL 26 MEQ/L (21-32); CHLORIDE LEVEL 98 MEQ/L (98-107); CREATININE FOR GFR 0.88 MG/DL (0.55-1.30); FREE T4 1.03 NG/DL (0.76-1.46); GLOMERULAR FILTRATION RATE > 60.0 (>39); GLUCOSE, FASTING 91 MG/DL (70-100); MAGNESIUM LEVEL 2.1 MG/DL (1.8-2.4); POTASSIUM SERUM 4.2 MEQ/L (3.5-5.1); PTH INTACT 49.4 PG/ML (18.5-88.0); SODIUM LEVEL 137 MEQ/L (136-145); TOTAL 25(OH) VITAMIN D 57.3 NG/ML (30.0-100.0); TOTAL PROTEIN 8.3 GM/DL (6.4-8.2)
[2017-11-27 15:10] LABS: ESTIMATED AVERAGE GLUCOSE 123 MG/DL (60-110); HEMOGLOBIN A1c 5.9 %
[2017-11-28 14:16] LABS: INSULIN LEVEL 27.1 uIU/mL (2.6-24.9)
== END ==
LOC: M SFHCPLAZ 09:57
DX: I10 Essential (primary) hypertension (principal); E03.9 Hypothyroidism, unspecified; R73.01 Impaired fasting glucose; M85.80 Other specified disorders of bone density and structure, unspecified site; E55.9 Vitamin D deficiency, unspecified
CPT/HCPCS: 83525

== ENCOUNTER 2017-12-16 12:03 | Inpatient (IN) | payer MEDICARE, OTHER, MEDICAID ==
[2017-12-16] MEDS: NS 500 ML IV (13:37)
[2017-12-16 13:38] LABS: BASO % 0.5 % (0.0-1.0); EOS # 0.1 10^3/uL (0.0-0.50); EOS % 1.9 % (0.0-3.0); HEMATOCRIT 42.6 % (36.0-47.0); HEMOGLOBIN 13.6 g/dl (12.0-15.5); IMMATURE GRANULOCYTE % 0.3 % (0-3.0); LYMPH # 1.5 10^3/uL (1.5-4.5); LYMPH % 20.8 % (24.0-44.0); MEAN CORPUSCULAR HEMOGLOBIN 27.5 pg (27.0-33.0); MEAN CORPUSCULAR HGB CONC 31.9 g/dl (32.0-36.5); MEAN CORPUSCULAR VOLUME 86.1 fl (80.0-96.0); MONO # 0.8 10^3/uL (0.0-0.8); MONO % 10.4 % (0.0-5.0); NEUTROPHILS # 4.8 10^3/uL (1.8-7.7); NEUTROPHILS % 66.1 % (36.0-66.0); PLATELET COUNT, AUTOMATED 298 10^3/uL (150-450); RED BLOOD COUNT 4.95 10^6/uL (4.00-5.40); RED CELL DISTRIBUTION WIDTH 15.9 % (11.5-14.5); WHITE BLOOD COUNT 7.3 10^3/uL (4.0-10.0)
[2017-12-16 13:59] LABS: AMMONIA 18 uMOL/L (<32)
[2017-12-16 14:03] LABS: LACTIC ACID SEPSIS PROTOCOL 1.3 MMOL/L (0.4-2.0)
[2017-12-16 14:11] LABS: ALBUMIN 3.3 GM/DL (3.2-5.2); ALBUMIN/GLOBULIN RATIO 0.69 (1.00-1.93); ALKALINE PHOSPHATASE 53 U/L (45-117); ALT/SGPT 14 U/L (12-78); ANION GAP 7 MEQ/L (8-16); AST/SGOT 15 U/L (7-37); BILIRUBIN,DIRECT 0.1 MG/DL (0.0-0.2); BILIRUBIN,TOTAL 0.2 MG/DL (0.2-1.0); BLOOD UREA NITROGEN 12 MG/DL (7-18); CALCIUM LEVEL 9.6 MG/DL (8.8-10.2); CARBON DIOXIDE LEVEL 31 MEQ/L (21-32); CHLORIDE LEVEL 100 MEQ/L (98-107); CK-MB VALUE MASS < 1.0 NG/ML (<3.6); CPK CREATINE PHOSPHOKINASE 49 U/L (26-192); CREATININE FOR GFR 0.89 MG/DL (0.55-1.30); GLOMERULAR FILTRATION RATE > 60.0 (>39); GLUCOSE, FASTING 86 MG/DL (70-100); MB/CK RELATIVE INDEX 2.04 (< OR =4); POTASSIUM SERUM 4.4 MEQ/L (3.5-5.1); SODIUM LEVEL 138 MEQ/L (136-145); TOTAL PROTEIN 8.1 GM/DL (6.4-8.2); TROPONIN I < 0.02 NG/ML (< 0.10)
[2017-12-16 15:02] LABS: KETONE, URINE AUTO RFX TRACE mg/dL (NEGATIVE); LEUKOCYTE ESTERASE UR AUTO RFX 3+ (NEGATIVE); MUCUS, URINE RFX SMALL (NEGATIVE); NITRITE, URINE AUTO RFX POSITIVE (NEGATIVE); RBC, URINE AUTO RFX 13 /HPF (0-3); SQUAM EPITHELIAL CELL UR AURFX 1 /HPF (0-6); WBC, URINE AUTO RFX TNTC /HPF (0-3)
[2017-12-16] MEDS: CIPROFLOXACIN 200 MG in APPROPRIATE DILUENT 1 EA IV (16:15)
[2017-12-16] MEDS ORDERED: IPRATROPIUM 0.5MG/ALBUTEROL 2.5MG INH SOL UD 3ML (DUONEB)(J7620) INH (17:45)
[2017-12-16] MEDS: **NOTE PATIENT COMMENT** MISC XX (21:00)
[2017-12-16] MEDS: BUDESONIDE EC 3 MG CAP (ENTOCORT EC) PO (21:40)
[2017-12-16] MEDS: SINEMET 25-250 TABLET PO (21:40)
[2017-12-16] MEDS: SENOKOT S TAB PO (21:40)
[2017-12-16] MEDS: MEMANTINE 5MG TABLET (NAMENDA) PO (21:40)
[2017-12-16] MEDS: RAMIPRIL 5 MG CAP PO (21:40)
[2017-12-16] MEDS: SIMVASTATIN 40 MG TAB PO (21:40)
[2017-12-16] MEDS: DONEPEZIL 5 MG TAB PO (21:40)
[2017-12-16] MEDS: ACETAMINOPHEN TAB 650MG DOSE (2X325MG) PO (21:40)
[2017-12-17] MEDS: CIPROFLOXACIN 400 MG in APPROPRIATE DILUENT 1 EA IV ×2 (03:32→16:27)
[2017-12-17] MEDS: LEVOTHYROXINE 25MCG TABLET (0.025MG) PO (05:34)
[2017-12-17 06:33] LABS: BASO # 0.1 10^3/uL (0.0-0.2); BASO % 0.8 % (0.0-1.0); EOS # 0.2 10^3/uL (0.0-0.50); EOS % 2.4 % (0.0-3.0); IMMATURE GRANULOCYTE % 0.3 % (0-3.0); LYMPH # 1.2 10^3/uL (1.5-4.5); LYMPH % 18.7 % (24.0-44.0); MEAN CORPUSCULAR HEMOGLOBIN 27.6 pg (27.0-33.0); MEAN CORPUSCULAR HGB CONC 32.5 g/dl (32.0-36.5); MEAN CORPUSCULAR VOLUME 84.9 fl (80.0-96.0); MONO # 0.7 10^3/uL (0.0-0.8); MONO % 10.6 % (0.0-5.0); NEUTROPHILS # 4.2 10^3/uL (1.8-7.7); NEUTROPHILS % 67.2 % (36.0-66.0); PLATELET COUNT, AUTOMATED 283 10^3/uL (150-450); RED BLOOD COUNT 4.71 10^6/uL (4.00-5.40); RED CELL DISTRIBUTION WIDTH 15.7 % (11.5-14.5); WHITE BLOOD COUNT 6.3 10^3/uL (4.0-10.0)
[2017-12-17 07:04] LABS: ANION GAP 7 MEQ/L (8-16); BLOOD UREA NITROGEN 8 MG/DL (7-18); CALCIUM LEVEL 8.5 MG/DL (8.8-10.2); CARBON DIOXIDE LEVEL 29 MEQ/L (21-32); CHLORIDE LEVEL 98 MEQ/L (98-107); GLOMERULAR FILTRATION RATE > 60.0 (>39); GLUCOSE, FASTING 94 MG/DL (70-100); SODIUM LEVEL 134 MEQ/L (136-145)
[2017-12-17] MEDS: LIDOCAINE 5% (LIDODERM) PATCH TD (08:14)
[2017-12-17] MEDS: MAGNESIUM OXIDE 400 MG TAB (MAG-OX) PO (08:15)
[2017-12-17] MEDS: MEMANTINE 5MG TABLET (NAMENDA) PO ×2 (08:15→20:56)
[2017-12-17] MEDS: CALCIUM/VITAMIN D 500 MG TAB PO (08:15)
[2017-12-17] MEDS: RAMIPRIL 5 MG CAP PO ×2 (08:15→20:55)
[2017-12-17] MEDS: OMEPRAZOLE 20 MG CAP PO (08:15)
[2017-12-17] MEDS: PRIMIDONE 50 MG TAB PO (08:16)
[2017-12-17] MEDS: MULTIVITAMINS/MINERALS THERAP 1 TAB PO (08:16)
[2017-12-17] MEDS: ASCORBIC ACID 500 MG TAB PO (08:16)
[2017-12-17] MEDS: CYANOCOBALAMIN 500 MCG TAB PO (08:16)
[2017-12-17] MEDS: SENOKOT S TAB PO ×2 (08:16→20:56)
[2017-12-17] MEDS: SINEMET 25-250 TABLET PO ×3 (08:16→20:55)
[2017-12-17] MEDS: ESCITALOPRAM OXALATE 10 MG TAB (LEXAPRO) PO (08:16)
[2017-12-17] MEDS: ACETAMINOPHEN TAB 650MG DOSE (2X325MG) PO (08:17)
[2017-12-17] MEDS: SIMVASTATIN 40 MG TAB PO (20:55)
[2017-12-17] MEDS: BUDESONIDE EC 3 MG CAP (ENTOCORT EC) PO (20:56)
[2017-12-17] MEDS: **NOTE PATIENT COMMENT** MISC XX (20:56)
[2017-12-17] MEDS: DONEPEZIL 5 MG TAB PO (20:56)
[2017-12-18] MEDS: CIPROFLOXACIN 400 MG in APPROPRIATE DILUENT 1 EA IV ×2 (03:34→17:39)
[2017-12-18] MEDS: LEVOTHYROXINE 25MCG TABLET (0.025MG) PO (05:35)
[2017-12-18 07:02] LABS: BASO % 0.5 % (0.0-1.0); EOS # 0.1 10^3/uL (0.0-0.50); EOS % 1.8 % (0.0-3.0); HEMATOCRIT 40.5 % (36.0-47.0); HEMOGLOBIN 12.9 g/dl (12.0-15.5); IMMATURE GRANULOCYTE % 0.4 % (0-3.0); LYMPH # 1.5 10^3/uL (1.5-4.5); LYMPH % 20.2 % (24.0-44.0); MEAN CORPUSCULAR HEMOGLOBIN 27.8 pg (27.0-33.0); MEAN CORPUSCULAR HGB CONC 31.9 g/dl (32.0-36.5); MEAN CORPUSCULAR VOLUME 87.3 fl (80.0-96.0); MONO # 0.8 10^3/uL (0.0-0.8); NEUTROPHILS # 5.1 10^3/uL (1.8-7.7); NEUTROPHILS % 67.1 % (36.0-66.0); PLATELET COUNT, AUTOMATED 266 10^3/uL (150-450); RED BLOOD COUNT 4.64 10^6/uL (4.00-5.40); RED CELL DISTRIBUTION WIDTH 15.9 % (11.5-14.5); WHITE BLOOD COUNT 7.6 10^3/uL (4.0-10.0)
[2017-12-18 07:33] LABS: ANION GAP 7 MEQ/L (8-16); BLOOD UREA NITROGEN 9 MG/DL (7-18); CARBON DIOXIDE LEVEL 27 MEQ/L (21-32); CHLORIDE LEVEL 99 MEQ/L (98-107); CREATININE FOR GFR 0.84 MG/DL (0.55-1.30); GLOMERULAR FILTRATION RATE > 60.0 (>39); GLUCOSE, FASTING 81 MG/DL (70-100); SODIUM LEVEL 133 MEQ/L (136-145)
[2017-12-18] MEDS: CALCIUM/VITAMIN D 500 MG TAB PO (08:30)
[2017-12-18] MEDS: SINEMET 25-250 TABLET PO ×3 (08:30→20:30)
[2017-12-18] MEDS: OMEPRAZOLE 20 MG CAP PO (08:30)
[2017-12-18] MEDS: CYANOCOBALAMIN 500 MCG TAB PO (08:30)
[2017-12-18] MEDS: RAMIPRIL 5 MG CAP PO ×2 (08:31→20:30)
[2017-12-18] MEDS: ESCITALOPRAM OXALATE 10 MG TAB (LEXAPRO) PO (08:32)
[2017-12-18] MEDS: PRIMIDONE 50 MG TAB PO (08:32)
[2017-12-18] MEDS: MEMANTINE 5MG TABLET (NAMENDA) PO ×2 (08:32→20:30)
[2017-12-18] MEDS: MULTIVITAMINS/MINERALS THERAP 1 TAB PO (08:32)
[2017-12-18] MEDS: MAGNESIUM OXIDE 400 MG TAB (MAG-OX) PO (08:32)
[2017-12-18] MEDS: ASCORBIC ACID 500 MG TAB PO (08:32)
[2017-12-18] MEDS: SENOKOT S TAB PO ×2 (08:32→20:23)
[2017-12-18] MEDS: BUDESONIDE EC 3 MG CAP (ENTOCORT EC) PO (20:23)
[2017-12-18] MEDS: DONEPEZIL 5 MG TAB PO (20:23)
[2017-12-18] MEDS: SIMVASTATIN 40 MG TAB PO (20:23)
[2017-12-18] MEDS: **NOTE PATIENT COMMENT** MISC XX (20:31)
[2017-12-19] MEDS: CIPROFLOXACIN 400 MG in APPROPRIATE DILUENT 1 EA IV (03:49)
[2017-12-19] MEDS: LEVOTHYROXINE 25MCG TABLET (0.025MG) PO (05:19)
[2017-12-19 07:00] LABS: BASO % 0.5 % (0.0-1.0); EOS # 0.2 10^3/uL (0.0-0.50); EOS % 2.2 % (0.0-3.0); HEMATOCRIT 38.9 % (36.0-47.0); HEMOGLOBIN 12.4 g/dl (12.0-15.5); IMMATURE GRANULOCYTE % 0.4 % (0-3.0); LYMPH # 1.6 10^3/uL (1.5-4.5); LYMPH % 18.2 % (24.0-44.0); MEAN CORPUSCULAR HEMOGLOBIN 27.9 pg (27.0-33.0); MEAN CORPUSCULAR HGB CONC 31.9 g/dl (32.0-36.5); MEAN CORPUSCULAR VOLUME 87.4 fl (80.0-96.0); MONO # 0.9 10^3/uL (0.0-0.8); MONO % 10.3 % (0.0-5.0); NEUTROPHILS # 5.9 10^3/uL (1.8-7.7); NEUTROPHILS % 68.4 % (36.0-66.0); PLATELET COUNT, AUTOMATED 276 10^3/uL (150-450); RED BLOOD COUNT 4.45 10^6/uL (4.00-5.40); RED CELL DISTRIBUTION WIDTH 15.8 % (11.5-14.5); WHITE BLOOD COUNT 8.6 10^3/uL (4.0-10.0)
[2017-12-19 07:21] LABS: ANION GAP 4 MEQ/L (8-16); BLOOD UREA NITROGEN 12 MG/DL (7-18); CALCIUM LEVEL 9.1 MG/DL (8.8-10.2); CARBON DIOXIDE LEVEL 33 MEQ/L (21-32); CHLORIDE LEVEL 97 MEQ/L (98-107); CREATININE FOR GFR 0.99 MG/DL (0.55-1.30); GLOMERULAR FILTRATION RATE 58.2 (>39); GLUCOSE, FASTING 88 MG/DL (70-100); POTASSIUM SERUM 4.2 MEQ/L (3.5-5.1); SODIUM LEVEL 134 MEQ/L (136-145)
[2017-12-19] MEDS: MEMANTINE 5MG TABLET (NAMENDA) PO (10:11)
[2017-12-19] MEDS: ASCORBIC ACID 500 MG TAB PO (10:11)
[2017-12-19] MEDS: ESCITALOPRAM OXALATE 10 MG TAB (LEXAPRO) PO (10:12)
[2017-12-19] MEDS: PRIMIDONE 50 MG TAB PO (10:12)
[2017-12-19] MEDS: MAGNESIUM OXIDE 400 MG TAB (MAG-OX) PO (10:12)
[2017-12-19] MEDS: OMEPRAZOLE 20 MG CAP PO (10:12)
[2017-12-19] MEDS: MULTIVITAMINS/MINERALS THERAP 1 TAB PO (10:12)
[2017-12-19] MEDS: SINEMET 25-250 TABLET PO (10:12)
[2017-12-19] MEDS: ACETAMINOPHEN TAB 650MG DOSE (2X325MG) PO (10:13)
[2017-12-19] MEDS: RAMIPRIL 5 MG CAP PO (10:13)
[2017-12-19] MEDS: CYANOCOBALAMIN 500 MCG TAB PO (10:14)
[2017-12-19] MEDS: SENOKOT S TAB PO (10:14)
[2017-12-19] MEDS: CALCIUM/VITAMIN D 500 MG TAB PO (10:14)
== END 2017-12-19 12:40 | disposition home health service (06) | DRG 690 ==
LOC: M ED 12:03 → M ED INP 17:22 → M MS5PR 20:15
PROVIDERS: Family Medicine
DX: N39.0 Urinary tract infection, site not specified (principal); F02.81 Dementia in other diseases classified elsewhere, unspecified severity, with behavioral disturbance; R41.82 Altered mental status, unspecified; G20 Parkinson's disease; E55.9 Vitamin D deficiency, unspecified; G47.33 Obstructive sleep apnea (adult) (pediatric); J44.9 Chronic obstructive pulmonary disease, unspecified; G25.0 Essential tremor; I10 Essential (primary) hypertension; M47.896 Other spondylosis, lumbar region; F32.9 Major depressive disorder, single episode, unspecified; E78.5 Hyperlipidemia, unspecified; E03.9 Hypothyroidism, unspecified; K21.9 Gastro-esophageal reflux disease without esophagitis; I25.10 Atherosclerotic heart disease of native coronary artery without angina pectoris; Z98.41 Cataract extraction status, right eye; Z95.0 Presence of cardiac pacemaker; Z79.899 Other long term (current) drug therapy; Z88.2 Allergy status to sulfonamides; Z88.0 Allergy status to penicillin; Z88.8 Allergy status to other drugs, medicaments and biological substances; Z86.73 Personal history of transient ischemic attack (TIA), and cerebral infarction without residual deficits; Z87.891 Personal history of nicotine dependence; Z91.018 Allergy to other foods

== ENCOUNTER → 2018-02-22 | Outpatient (REF) | payer MEDICARE, OTHER, MEDICAID ==
[~2018-02-22] MED LIST changes: +BUDE3CAP PO; +CARB25TA12 PO; +CIPR1TAB20 PO; +LEVA1TAB2 PO; +MAPA325T2 PO; +OMEP-221 PO; +PATIENT COMMENTS; -RAMI10CA PO; +RAMI1CAP24 PO; +RAMI1CAP26 PO; -RAMI5CA PO; +SPIR1CAP INH; +VITA500C24 PO
[2018-02-22 10:42] LABS: BASO # 0.1 10^3/uL (0.0-0.2); BASO % 0.6 % (0.0-1.0); EOS # 0.1 10^3/uL (0.0-0.50); EOS % 1.1 % (0.0-3.0); HEMOGLOBIN 13.6 g/dl (12.0-15.5); LYMPH # 1.2 10^3/uL (1.5-4.5); LYMPH % 15.2 % (24.0-44.0); MEAN CORPUSCULAR HEMOGLOBIN 27.4 pg (27.0-33.0); MEAN CORPUSCULAR HGB CONC 31.6 g/dl (32.0-36.5); MEAN CORPUSCULAR VOLUME 86.5 fl (80.0-96.0); MONO # 0.7 10^3/uL (0.0-0.8); MONO % 8.3 % (0.0-5.0); NEUTROPHILS # 5.8 10^3/uL (1.8-7.7); NEUTROPHILS % 74.3 % (36.0-66.0); PLATELET COUNT, AUTOMATED 306 10^3/uL (150-450); RED BLOOD COUNT 4.97 10^6/uL (4.00-5.40); WHITE BLOOD COUNT 7.8 10^3/uL (4.0-10.0)
[2018-02-22 11:14] LABS: ALBUMIN 3.3 GM/DL (3.2-5.2); ALT/SGPT 15 U/L (12-78); BILIRUBIN,TOTAL 0.3 MG/DL (0.2-1.0); BLOOD UREA NITROGEN 7 MG/DL (7-18); CALCIUM LEVEL 9.2 MG/DL (8.8-10.2); CARBON DIOXIDE LEVEL 31 MEQ/L (21-32); CHLORIDE LEVEL 95 MEQ/L (98-107); CREATININE FOR GFR 0.77 MG/DL (0.55-1.30); GLOMERULAR FILTRATION RATE > 60.0 (>39); GLUCOSE, FASTING 108 MG/DL (70-100); POTASSIUM SERUM 4.3 MEQ/L (3.5-5.1); SODIUM LEVEL 133 MEQ/L (136-145); TOTAL PROTEIN 8.2 GM/DL (6.4-8.2)
[2018-02-22 12:02] LABS: HEMOGLOBIN A1c 6.8 %
[2018-02-22 12:56] LABS: VITAMIN B12 LEVEL > 2000 PG/ML (247-911)
== END ==
LOC: M SFHCPLAZ 09:59
PROVIDERS: ATTEND Family Medicine
DX: D51.8 Other vitamin B12 deficiency anemias (principal); R73.01 Impaired fasting glucose; G20 Parkinson's disease
CPT/HCPCS: 36415; 80053; 82140; 82607; 83036; 85025; 85046; 90682; G0008; G0463

== ENCOUNTER → 2018-05-11 | Outpatient (REF) | payer MEDICARE, OTHER, MEDICAID ==
[~2018-05-11] MED LIST changes: +CIPR-249 PO; +MAGN400T PO; +OMEP40CA2 PO; +SIMV40TA2 PO; +TIOT18INH INH
[2018-05-11 12:33] LABS: BASO # 0.1 10^3/uL (0.0-0.2); BASO % 0.6 % (0.0-1.0); EOS # 0.1 10^3/uL (0.0-0.50); EOS % 1.4 % (0.0-3.0); HEMATOCRIT 44.9 % (36.0-47.0); HEMOGLOBIN 14.1 g/dl (12.0-15.5); LYMPH # 1.4 10^3/uL (1.5-4.5); LYMPH % 14.2 % (24.0-44.0); MEAN CORPUSCULAR HEMOGLOBIN 27.8 pg (27.0-33.0); MEAN CORPUSCULAR HGB CONC 31.4 g/dl (32.0-36.5); MEAN CORPUSCULAR VOLUME 88.6 fl (80.0-96.0); MONO # 0.8 10^3/uL (0.0-0.8); MONO % 8.5 % (0.0-5.0); NEUTROPHILS # 7.3 10^3/uL (1.8-7.7); NEUTROPHILS % 74.9 % (36.0-66.0); PLATELET COUNT, AUTOMATED 312 10^3/uL (150-450); RED BLOOD COUNT 5.07 10^6/uL (4.00-5.40); WHITE BLOOD COUNT 9.7 10^3/uL (4.0-10.0)
[2018-05-11 13:06] LABS: ALBUMIN 3.5 GM/DL (3.2-5.2); ALT/SGPT 22 U/L (12-78); BILIRUBIN,TOTAL 0.4 MG/DL (0.2-1.0); BLOOD UREA NITROGEN 14 MG/DL (7-18); CALCIUM LEVEL 9.2 MG/DL (8.8-10.2); CARBON DIOXIDE LEVEL 28 MEQ/L (21-32); CHLORIDE LEVEL 101 MEQ/L (98-107); CREATININE FOR GFR 0.81 MG/DL (0.55-1.30); FREE T4 1.12 NG/DL (0.76-1.46); GLOMERULAR FILTRATION RATE > 60.0 (>39); GLUCOSE, FASTING 113 MG/DL (70-100); SODIUM LEVEL 137 MEQ/L (136-145); TOTAL PROTEIN 8.7 GM/DL (6.4-8.2)
[2018-05-11 13:37] LABS: HEMOGLOBIN A1c 6.2 %
== END ==
LOC: M SFHCPLAZ 09:57
PROVIDERS: ATTEND Family Medicine
DX: R73.01 Impaired fasting glucose (principal); E03.9 Hypothyroidism, unspecified
CPT/HCPCS: 36415; 80053; 83036; 83735; 84439; 84443; 85025; G0463

== ENCOUNTER 2018-05-21 09:13 | Inpatient (IN) | payer MEDICARE, OTHER, MEDICAID ==
[~2018-05-21] VITALS: Ht 157.5 cm; Wt 85.3 kg
[2018-05-21] MEDS: PANTOPRAZOLE 40MG INJ (PROTONIX) (C9113) IV SCH (09:00)
[~2018-05-21 09:13] MED LIST changes: -/TIOT18INH INH; -CIPR-249 PO; -MAGN400T PO; -OMEP40CA2 PO; -SIMV40TA2 PO; -TIOT18INH INH
[2018-05-21] MEDS ORDERED: SIMV40TA2 PO (09:46)
--- NOTE | 2018-05-21 10:13 | REP ---
CT Head without contrast HISTORY: Altered mental status COMPARISON: 12/16/2017 An area of decreased attenuation is present in the posterior left parietal lobe. There is dilatation of the overlying cortical sulci and posterior body and atrium of the left lateral ventricle. This represents encephalomalacia. Areas of decreased attenuation are present in the periventricular and subcortical white matter. This represents small-vessel ischemic disease. There is no intraparenchymal hemorrhage, acute infarct, mass or midline shift. The ventricular system and cortical sulci as well as subarachnoid space in the posterior fossa are dilated consistent with moderate volume loss. There is no extra cerebral collection. There is no fracture. The visualized sinuses are clear. IMPRESSION: 1. Left parietal lobe encephalomalacia. 2. Small vessel ischemic disease. 3. Moderate volume loss. Electronically Signed by Jam Pollard MD 05/21/2018 10:04 A
[2018-05-21 10:41] LABS: BASO % 0.5 % (0.0-1.0); EOS # 0.1 10^3/uL (0.0-0.50); EOS % 1.3 % (0.0-3.0); HEMATOCRIT 40.8 % (36.0-47.0); HEMOGLOBIN 12.8 g/dl (12.0-15.5); LYMPH # 1.3 10^3/uL (1.5-4.5); LYMPH % 15.5 % (24.0-44.0); MEAN CORPUSCULAR HEMOGLOBIN 27.6 pg (27.0-33.0); MEAN CORPUSCULAR HGB CONC 31.4 g/dl (32.0-36.5); MEAN CORPUSCULAR VOLUME 88.1 fl (80.0-96.0); MONO # 0.8 10^3/uL (0.0-0.8); MONO % 9.2 % (0.0-5.0); NEUTROPHILS # 6.2 10^3/uL (1.8-7.7); PLATELET COUNT, AUTOMATED 299 10^3/uL (150-450); RED BLOOD COUNT 4.63 10^6/uL (4.00-5.40); WHITE BLOOD COUNT 8.5 10^3/uL (4.0-10.0)
--- NOTE | 2018-05-21 10:46 | REP ---
Chest two views HISTORY: Cough Comparison: 12/16/2017 An increase in interstitial markings is present in the lungs consistent with chronic interstitial fibrosis. The heart is normal in size. The pulmonary vasculature is normal in appearance. The bony structure is intact. A cardiac pacemaker is present. IMPRESSION: Chronic interstitial fibrosis. Electronically Signed by Jam Pollard MD 05/21/2018 10:37 A
[2018-05-21 11:12] LABS: INFLUENZA A AMPLIFICATION NEGATIVE (NEGATIVE); INFLUENZA B AMPLIFICATION NEGATIVE (NEGATIVE)
[2018-05-21 11:13] LABS: ALBUMIN 3.3 GM/DL (3.2-5.2); ALT/SGPT 22 U/L (12-78); BILIRUBIN,DIRECT < 0.1 MG/DL (0.0-0.2); BILIRUBIN,TOTAL 0.3 MG/DL (0.2-1.0); BLOOD UREA NITROGEN 11 MG/DL (7-18); CARBON DIOXIDE LEVEL 29 MEQ/L (21-32); CHLORIDE LEVEL 102 MEQ/L (98-107); CREATININE FOR GFR 0.86 MG/DL (0.55-1.30); GLOMERULAR FILTRATION RATE > 60.0 (>39); GLUCOSE, FASTING 101 MG/DL (70-100); LIPASE 61 U/L (73-393); POTASSIUM SERUM 4.8 MEQ/L (3.5-5.1); SODIUM LEVEL 138 MEQ/L (136-145); TOTAL PROTEIN 8.8 GM/DL (6.4-8.2)
[2018-05-21] MEDS ORDERED: ISOVUE-370 76% 100ML VIAL (Q9967) As Ordered ONE (11:41)
[2018-05-21] MEDS ORDERED: CIPROFLOXACIN 400 MG in APPROPRIATE DILUENT 1 EA IV ONE (11:45)
[2018-05-21] MEDS ORDERED: ONDANSETRON 4MG/2ML VIAL (J2405) IV PRN (12:15)
[2018-05-21] MEDS ORDERED: ACETAMINOPHEN TAB 650MG DOSE (2X325MG) PO PRN (12:15)
[2018-05-21] MEDS ORDERED: TIOT18INH INH (12:25)
[2018-05-21] MEDS ORDERED: MAGN400T PO (12:25)
[2018-05-21] MEDS ORDERED: COMBAER6 INH (12:25)
[2018-05-21] MEDS ORDERED: OMEP40CA2 PO (12:25)
--- NOTE | 2018-05-21 12:43 | REP ---
CT ABDOMEN AND PELVIS WITH IV CONTRAST ONLY: 05/21/2018. Comparison: 09/17/2017. Clinical history: Pyelonephritis. Technique: The patient received a bolus of 100 mL Isovue 370 scanning through the abdomen pelvis with coronal and sagittal reconstructions. Findings: CT abdomen. Diffuse interstitial fibrosis in the lung bases appears unchanged. Heart size unchanged with some mild cardiac enlargement. There is no pericardial thickening or effusion. Pacer leads in the right antrum and right ventricle again noted. There is no hepatomegaly, splenomegaly, focal hepatic or splenic mass. There is no adjacent ascites. The gallbladder is partially contracted without calcified stone or mass. No intrahepatic biliary dilatation. Adrenal glands without mass or nodule. Right and left kidneys show cortical enhancement in a symmetric fashion. There are multiple cysts involving the left kidney larger on the left than right with the largest in the upper pole on the left 5.5 cm and another at the lower pole 3.5 cm. A few other centimeter and subcentimeter upper pole cysts on the right and a tiny sub-centimeter cyst lower pole on the left. No solid mass or hydronephrosis. No perinephric edema. No abnormal calcifications. There is sclerotic calcifications of the aorta and branches without aneurysm. Some pancreatic atrophy noted without mass, ductal dilatation or stone. There is no definite hiatal hernia. Small bowel loops and stomach grossly unremarkable. There is vacuum phenomenon at L4-5 with degenerative disc changes at that level and marginal osteophytes throughout lumbar spine. No spondylolysis or spondylolisthesis. Colon shows no evidence for colitis, diverticulitis or mass. Loops fluid-filled without abnormal dilatation or mass . Calcifications of the aorta without aneurysm. No periaortic, retroperitoneal, or mesenteric pathologic sized adenopathy. Lung window review of all CT slices shows no perforation or free air. CT pelvis: Sacrum, SI joints and hips show degenerative changes throughout. The bones are demineralized but there is no fracture or destructive lesion. Distal ureters without dilatation or stone. The entire course the ureter is seen without dilatation or stone. In the pelvis the bladder is fairly well filled but without wall thickening, mass or stone. Distal left colon, sigmoid and rectum without mass or inflammatory change. There appear to be an anastomotic sutures in the distal sigmoid and rectal junction. Some surgical clips adjacent. No uterus is present. There is no adnexal mass. Small bowel loops unremarkable in the deep pelvis. No ventral or inguinal hernia nor inguinal adenopathy. Impression: 1. There is no CT evidence of pyelonephritis with homogeneous enhancement of the renal cortex on both sides except for the effect of multiple renal cysts on the left larger than right. No hydronephrosis, stone or solid mass. 2. Atherosclerotic calcification of the aorta and branches without aneurysm. 3. Small bowel loops fluid-filled without dilatation, obstruction or mass. There is no sign of colitis or diverticulitis. Old anastomotic sutures in the deep pelvis at the rectosigmoid junction, nothing acute in the colon. No ascites, perforation or free air. 4. No renal, ureteral or bladder stone. Bladder grossly unremarkable. 5. No ventral or inguinal hernia although the inguinal canal is mildly distended on the left with a small amount of omental fat. Bowel herniation. 6. Some old surgical changes from prior hysterectomy and surgical clips suggesting prior rectosigmoid anastomosis. Degenerative changes in the spine and hips. No other significant or acute finding. Electronically Signed by Max Ferguson MD 05/21/2018 07:52 P
[2018-05-21] MEDS ORDERED: HEPARIN SOD (PORCINE) 5000 UNITS/ML VIAL SC SCH (14:00)
[2018-05-21 16:45] VITALS: BP 147/79
--- NOTE | 2018-05-21 18:24 | HPE ---
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 She has also had a poor appetite for the last 48 hours. Her and the primary grade teacher are with her through most of the day and state that this has happened before. In the past, she has had symptoms very similar to this and needed to be treated in the hospital with antibiotics for it. In the emergency department, she was given a single dose of ciprofloxacin and lab work was done that showed a positive urinalysis screen. Of note, earlier in the weekend the family had performed an at home urine dipstick test that was positive, necessitating them coming into the emergency department. 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 PAST SURGICAL HISTORY: Right inguinal hernia repair with Dr. Maddox in October of 2010, bowel resection in 2007, colonoscopy in 2009, section times three, right eye cataract surgery in December of 2015. FAMILY HISTORY: Noncontributory. SOCIAL HISTORY: Former smoker, quit in 2017. Lives at home with and primary grade teacher who is there from 7 a.m. to 11 p.m. ALLERGIES: Refer to chart. MEDICATIONS: - multivitamins - Reclast - calcium - magnesium oxide - ramipril - Lexapro - cyanocobalamin - budesonide - Prilosec - Zocor - Acapella - vitamin C - DuoNeb inhaler - Spiriva HandiHaler - primidone - levothyroxine - Namenda - donepezil REVIEW OF SYSTEMS: GENERAL: Denies fever, chills, recent unexpected weight change. HEENT: Denies headache, dizziness, has vision problems at baseline. Denies any sore throat, ear problems, throat problems. CARDIOVASCULAR: Denies any chest pain, palpitations. RESPIRATORY: Denies dyspnea, wheezing, coughing. ABDOMINAL: Admits to abdominal tenderness. Caregiver and state this is baseline for her, no matter where you touch her she will be positive for this. Denies any nausea, vomiting, constipation, or diarrhea. GENITOURINARY (): See history of present illness (HPI) above. PHYSICAL EXAMINATION: VITAL SIGNS: Patient is 86.5 kg, temperature is 97.6 degrees Fahrenheit, pulse is 70, respiratory rate is 19, blood pressure 147/79, pulse oximetry is 95% on 2 liters nasal cannula. GENERAL: Patient is alert, oriented, in no acute distress, resting comfortably in bed. HEENT: Head is normocephalic, atraumatic. Extraocular movement intact. Mucus membranes moist and pink. Uvula midline. No pharyngeal exudate or erythema. NECK: No lymphadenopathy or masses, no signs of jugular venous distention (JVD). CARDIOVASCULAR: Regular rate and rhythm. Normal S1 and S2. No murmurs, gallops, rubs. RESPIRATORY: Clear to auscultation bilaterally with diminished breath sounds bilaterally. No wheezing, crackles, rhonchi. ABDOMEN: Soft, obese, minimal diffuse tenderness to palpation throughout abdomen. No rebound tenderness or rigidity. EXTREMITIES: No edema, cyanosis, or clubbing. NEUROLOGIC: Patient has a tremor at baseline, more predominant in her upper extremities and in her left lower extremity. Patient is able to follow commands, but will sometimes have periods of confusion where she does not follow commands. During cranial nerve exam, patient was unable to track my hand not because she could not see it, but because she just chose not to participate in that portion of the exam. Otherwise, cranial nerves II-XII were intact. Patient does not have her glasses with her and can see and track things from far away but not always up close. PSYCHIATRIC: Per patient's family, patient was having hallucinations, however the patient is unable to describe any of these hallucinations on exam. The said that she thought that she was talking to her father who has been for many years the other day. It is unclear whether this is acute onset of confusion or progression of her dementia. LABORATORY WORK: White blood cell count of 8.5, hemoglobin of 12.8, hematocrit of 40.8, platelet count of 299. Chemistry: Sodium of 138, potassium of 4.8, chloride of 102, CO2 of 29, BUN of 11, creatinine of 0.86, fasting glucose of 101, lactic acid of 2.2, lactic acid 4 hour followup of 1.3, calcium of 9. AST of 28, ALT of 22, alkaline phosphatase of 47, lipase of 61. Urinalysis (UA) is cloudy urinary appearance, 3+ leukocyte esterase, too numerous to count urine white blood cells, 7 urine red blood cells, 1+ urine bacteria, 2 urinary squamous epithelial cells, small amount of amorphous sediment. Serology is negative for influenza A and influenza B. Microbiology has two blood cultures pending and a urine culture pending. IMAGING: Head CT shows left parietal lobe encephalomalacia, small vessel ischemic disease, and moderate volume loss. Chest x-ray shows chronic interstitial fibrosis. CT abdomen and pelvis with IV contrast only shows no CT evidence of pyelonephritis with homogeneous enhancement of the renal cortex on both sides except for the effect of multiple renal cysts on the left larger than the right. No hydronephrosis, stone, or solid mass. Atherosclerotic calcification of the aorta and branches without aneurysm. Small bowel loops fluid filled without dilatation, obstruction, or mass. There is no sign of colitis or diverticulitis. Old anastomotic sutures in the deep pelvis at the rectosigmoid junction, nothing acute in the colon. No ascites, perforation, or free air. No renal, ureteral, or bladder stone. Bladder grossly unremarkable. No ventral or inguinal hernia, although the inguinal canal is mildly distended on the left with a small amount of omental fat. Bowel herniation. Small old surgical changes from prior hysterectomy and surgical clips suggesting prior rectosigmoid anastomosis. Degenerative changes in the spine and hips. No other significant or acute finding. ASSESSMENT/PLAN: 1. Complicated urinary tract infection (UTI). The patient is afebrile with no white count but is also possibly presenting with neurologic symptoms and increased confusion along with a positive urinalysis (UA). Makes me suspicious for a complicated urinary tract infection (UTI) necessitating hospital admission for IV antibiotics. We will start the patient on IV ciprofloxacin and narrow the antibiotic as cultures come back. A urine culture is currently pending. Abdominal CT imaging does not show any signs of pyelonephritis or any acute abdominal processes. Head CT shows chronic changes. 2. Deep venous thrombosis (DVT) prophylaxis will be thromboembolism deterrents (TEDs) and sequentials. She has a history of left parenchymal hemorrhage as well as a history of middle cerebral artery occlusion. May consider placing back on heparin for deep venous thrombosis (DVT) prophylaxis since it has been long enough since her hemorrhage. My faculty preceptor for this patient encounter was physically present during the encounter and was fully available. All aspects of the patient interview, examination, medical decision making process, and medical care plan development were reviewed and approved by the faculty preceptor. The faculty preceptor is aware and concurs with the plan as stated in the body of this note and will attest to such by his/her cosignature. GERHARD
[2018-05-21] MEDS ORDERED: IPRATROPIUM 0.5MG/ALBUTEROL 2.5MG INH SOL UD 3ML (DUONEB)(J7620) NEB SCH (20:00)
[2018-05-21] MEDS: IPRATROPIUM 0.5MG/ALBUTEROL 2.5MG INH SOL UD 3ML (DUONEB)(J7620) NEB SCH ×2 (20:30→23:58)
--- NOTE | 2018-05-21 21:54 | ECGEPIP ---
Stationary ECG Study [facility] - ED Test Date: 2018-05-21 Pat Name: CARMENCITA SORENSON Department: Room: - Gender: F [employer] Up Worker: lula : 1940 Requested By: Ketan Craig Order Number: [id number] Reading MD: Yogesh Ruiz Measurements Intervals [place] Rate: 69 P: 135 ME: 226 QRS: -31 QRSD: 74 T: -17 QT: 382 QTc: 412 Interpretive Statements ELECTRONIC ATRIAL PACEMAKER MARKED LEFT AXIS DEVIATION VOLTAGE CRITERIA FOR LVH Nonspecific T wave abnormality Delayed anterior R wave progression Similar to tracing done 12-16-17 Electronically Signed On 05-21-2018 21:54:10 EDT by Yogesh Ruiz
[2018-05-21 22:00] VITALS: BP 99/56
[2018-05-21] MEDS: RAMIPRIL 5 MG CAP PO SCH (23:06)
[2018-05-21] MEDS: DONEPEZIL 5 MG TAB PO SCH (23:24)
[2018-05-21] MEDS: MEMANTINE 5MG TABLET (NAMENDA) PO SCH (23:25)
[2018-05-21] MEDS: SIMVASTATIN 40 MG TAB PO SCH (23:25)
[2018-05-21] MEDS: NYSTATIN 100,000 UNITS/GM TOPICAL PWD 15 GM TOP SCH (23:25)
[2018-05-21] MEDS: CIPROFLOXACIN 400 MG in APPROPRIATE DILUENT 1 EA IV SCH (23:25)
[2018-05-22] MEDS: IPRATROPIUM 0.5MG/ALBUTEROL 2.5MG INH SOL UD 3ML (DUONEB)(J7620) NEB SCH ×3 (04:00→11:41)
[2018-05-22] MEDS: LEVOTHYROXINE 25MCG TABLET (0.025MG) PO SCH (05:46)
[2018-05-22 06:00] VITALS: BP 122/60
[2018-05-22] MEDS: TIOTROPIUM INHALER/CAPSULE (SPIRIVA) INH SCH (08:08)
[2018-05-22 08:17] LABS: HEMATOCRIT 38.3 % (36.0-47.0); HEMOGLOBIN 12.1 g/dl (12.0-15.5); MEAN CORPUSCULAR HEMOGLOBIN 27.8 pg (27.0-33.0); MEAN CORPUSCULAR HGB CONC 31.6 g/dl (32.0-36.5); MEAN CORPUSCULAR VOLUME 87.8 fl (80.0-96.0); PLATELET COUNT, AUTOMATED 280 10^3/uL (150-450); RED BLOOD COUNT 4.36 10^6/uL (4.00-5.40); WHITE BLOOD COUNT 7.3 10^3/uL (4.0-10.0)
[2018-05-22] MEDS: PANTOPRAZOLE 40MG INJ (PROTONIX) (C9113) IV SCH (08:21)
[2018-05-22] MEDS: ESCITALOPRAM OXALATE 10 MG TAB (LEXAPRO) PO SCH (08:22)
[2018-05-22] MEDS: MAGNESIUM OXIDE 400 MG TAB (MAG-OX) PO SCH (08:22)
[2018-05-22] MEDS: RAMIPRIL 5 MG CAP PO SCH ×2 (08:22→23:17)
[2018-05-22] MEDS: MEMANTINE 5MG TABLET (NAMENDA) PO SCH ×2 (08:22→23:16)
[2018-05-22] MEDS: NYSTATIN 100,000 UNITS/GM TOPICAL PWD 15 GM TOP SCH ×2 (08:23→21:00)
[2018-05-22] MEDS: CYANOCOBALAMIN 500 MCG TAB PO SCH (08:23)
[2018-05-22] MEDS: PRIMIDONE 50 MG TAB PO SCH (08:23)
[2018-05-22 08:37] LABS: BLOOD UREA NITROGEN 10 MG/DL (7-18); CARBON DIOXIDE LEVEL 31 MEQ/L (21-32); CHLORIDE LEVEL 102 MEQ/L (98-107); CREATININE FOR GFR 0.88 MG/DL (0.55-1.30); GLOMERULAR FILTRATION RATE > 60.0 (>39); GLUCOSE, FASTING 95 MG/DL (70-100); POTASSIUM SERUM 4.3 MEQ/L (3.5-5.1); SODIUM LEVEL 138 MEQ/L (136-145)
[2018-05-22] MEDS: CIPROFLOXACIN 400 MG in APPROPRIATE DILUENT 1 EA IV SCH (12:17)
--- NOTE | 2018-05-22 13:20 | IPNPDOC ---
Subjective Date Seen The patient was seen on 05/22/18. Subjective Chief Complaint/HPI Episode of hypotension overnight with Ramipril being held. Otherwise, no acute events overnight. Patient denies any complaints this morning and is asking if she can go home. Has not had any hallucinations. Voided large amount of urine this AM per staff, but at bedside denied urinating this morning. Objective Physical Examination General Exam: Positive: Alert, Cooperative, No Acute Distress Eye Exam: Positive: EOMI ENT Exam: Positive: Atraumatic, Mucous membr. moist/pink Chest Exam: Positive: Clear to auscultation, Normal air movement Heart Exam: Positive: Rate Normal, Normal S1, Normal S2 Abdomen Exam: Positive: Normal bowel sounds, Soft; Negative: Tenderness Extremity Exam: Negative: Edema Skin Exam: Positive: Nl turgor and temperature; Negative: Rash Psych Exam: Positive: Mood NL; Negative: Oriented x 3 (Orientedx2 to person, knows date, city she is in. Has difficulty coming up with words at times) Assessment /Plan Problems (1) Urinary tract infection Status: Acute Response to Treatment: Stable Problem Text: 05/22- Unclear if patient is having dysuria as she denied even urinating this morning despite having done so. Patient's family indicated she was having foul smelling urine and dysuria on presentation, so further inquiry per them may be helpful. Patient is afebrile with no WBC count. Urine culture still pending. Patient will continue on Ciprofloxacin pending culture results. (2) Parkinsons disease Status: Chronic Response to Treatment: Stable Problem Text: Continue with current home medications (3) Hypertension Status: Chronic Response to Treatment: Stable Problem Text: Continue with current home medications. Holding parameters placed. (4) COPD (chronic obstructive pulmonary disease) Status: Chronic Response to Treatment: Stable Problem Text: Continue with current home medications (5) Hypothyroidism Status: Chronic Response to Treatment: Stable Problem Text: Continue with current home medications (6) GERD (gastroesophageal reflux disease) Status: Chronic Response to Treatment: Stable Problem Text: Continue with current home medications (7) Hyperlipidemia Status: Chronic Response to Treatment: Stable Problem Text: Continue with current home medications (8) S/P cardiac pacemaker procedure Status: Chronic Response to Treatment: Stable Problem Text: Continue with current home medications Plan/VTE VTE Prophylaxis Ordered?: Yes VS, I&O, 24H, Fishbone Vital Signs/I&O Vital Signs Date Time Temp Pulse Resp B/P (MAP) Pulse Ox O2 Delivery O2 Flow Rate FiO2 05/22/18 08:22 122/60 05/22/18 06:00 96.8 72 18 93 1.0 05/21/18 16:35 Nasal Cannula I&O- Last 24 Hours up to 6 AM 05/22/18 06:00 Intake Total 1020 ml Output Total 100 ml Balance 920 ml Laboratory Data 24H LABS Laboratory Tests 2 05/21/18 14:52: Lactic Acid Followup at 4 Hours 1.3 05/22/18 07:39: Nucleated Red Blood Cells % (auto) 0.0, Anion Gap 5L, Glomerular Filtration Rate > 60.0, Blood Urea Nitrogen 10, Creatinine 0.88, Sodium Level 138, Potassium Level 4.3, Chloride Level 102, Carbon Dioxide Level 31, Calcium Level 9.0 CBC/BMP Laboratory Tests 05/22/18 07:39 Red Blood Count 4.36, Mean Corpuscular Volume 87.8, Mean Corpuscular Hemoglobin 27.8, Mean Corpuscular Hemoglobin Concent 31.6 L, Red Cell Distribution Width 16.1 H, Calcium Level 9.0 Microbiology Microbiology 05/21/18 Blood Culture - Preliminary, Resulted No growth after 24 hours . All specim... 05/21/18 Blood Culture - Preliminary, Resulted No growth after 24 hours . All specim... 05/21/18 Urine Culture, Received Pending GME ATTESTATION GME ATTESTATION My faculty preceptor for this patient encounter was physically present during the encounter and was fully available. All aspects of the patient interview, examination, medical decision making process, and medical care plan development were reviewed and approved by the faculty preceptor. The faculty preceptor is aware and concurs with the plan as stated in the body of this note and will attest to such by his/her cosignature. ATTENDING NOTE CDT -- Agree with resident note. IV kept infiltrating, and we switched to PO cipro. Clinically appears to be doing well. We await the results of her urine culture. ISRAEL RICHTER DO May 22, 2018 13:20 NICOLÁS KILPATRICK DO May 23, 2018 01:05
[2018-05-22 14:00] VITALS: BP 123/57
[2018-05-22] MEDS ORDERED: IPRATROPIUM 0.5MG/ALBUTEROL 2.5MG INH SOL UD 3ML (DUONEB)(J7620) NEB PRN (14:00)
[2018-05-22 22:00] VITALS: BP 104/57
[2018-05-22] MEDS: DONEPEZIL 5 MG TAB PO SCH (23:16)
[2018-05-22] MEDS: SIMVASTATIN 40 MG TAB PO SCH (23:17)
[2018-05-23] MEDS: LEVOTHYROXINE 25MCG TABLET (0.025MG) PO SCH (05:39)
[2018-05-23 06:00] VITALS: BP 108/53
[2018-05-23] MEDS ORDERED: CIPROFLOXACIN 500 MG TAB PO SCH (06:00)
[2018-05-23 06:25] LABS: HEMATOCRIT 36.7 % (36.0-47.0); HEMOGLOBIN 11.6 g/dl (12.0-15.5); MEAN CORPUSCULAR HEMOGLOBIN 27.8 pg (27.0-33.0); MEAN CORPUSCULAR HGB CONC 31.6 g/dl (32.0-36.5); PLATELET COUNT, AUTOMATED 256 10^3/uL (150-450); RED BLOOD COUNT 4.17 10^6/uL (4.00-5.40); WHITE BLOOD COUNT 7.4 10^3/uL (4.0-10.0)
[2018-05-23 06:45] LABS: BLOOD UREA NITROGEN 14 MG/DL (7-18); CALCIUM LEVEL 8.7 MG/DL (8.8-10.2); CARBON DIOXIDE LEVEL 30 MEQ/L (21-32); CHLORIDE LEVEL 102 MEQ/L (98-107); CREATININE FOR GFR 0.78 MG/DL (0.55-1.30); GLOMERULAR FILTRATION RATE > 60.0 (>39); GLUCOSE, FASTING 101 MG/DL (70-100); POTASSIUM SERUM 4.2 MEQ/L (3.5-5.1); SODIUM LEVEL 137 MEQ/L (136-145)
[2018-05-23] MEDS: TIOTROPIUM INHALER/CAPSULE (SPIRIVA) INH SCH (07:20)
[2018-05-23 09:55] VITALS: BP 138/59
[2018-05-23] MEDS: RAMIPRIL 5 MG CAP PO SCH (09:55)
[2018-05-23] MEDS: NYSTATIN 100,000 UNITS/GM TOPICAL PWD 15 GM TOP SCH (09:55)
[2018-05-23] MEDS: ESCITALOPRAM OXALATE 10 MG TAB (LEXAPRO) PO SCH (09:55)
[2018-05-23] MEDS: PANTOPRAZOLE 40MG INJ (PROTONIX) (C9113) IV SCH (09:55)
[2018-05-23] MEDS: MEMANTINE 5MG TABLET (NAMENDA) PO SCH (09:55)
[2018-05-23] MEDS: MAGNESIUM OXIDE 400 MG TAB (MAG-OX) PO SCH (09:56)
[2018-05-23] MEDS: PRIMIDONE 50 MG TAB PO SCH (09:56)
[2018-05-23] MEDS: CYANOCOBALAMIN 500 MCG TAB PO SCH (09:56)
[2018-05-23] MEDS ORDERED: CIPR-249 PO (11:04)
--- NOTE | 2018-06-19 13:00 | DS.PDOC ---
Discharge Summary General Date of Admission May 21, 2018 at 14:18 Date of Discharge 05/23/18 Primary Care Physician: Galileo Adams M.D. Attending Physician: NICOLÁS KILPATRICK DO Discharge Summary PROCEDURES PERFORMED DURING STAY: [None]. ADMITTING DIAGNOSES: 1. Complicated urinary tract infection DISCHARGE DIAGNOSES: 1. UTI COMPLICATIONS/CHIEF COMPLAINT: Metabolic Encephalopathy,Urinary Tract Infection. HISTORY OF PRESENT ILLNESS:: Patient is a 78-year-old female who presented to the ER with her training technician and for a 2 day history of burning on urination and foul smelling urine as well as intermittent confusion and hallucinations. She had also been complaining of a poor appetite for the last 48 hours. Her and training technician reported in the past, when she had symptoms very similar to this she needed to be treated in the hospital with antibiotics for it. In the emergency department, she was given a single dose of ciprofloxacin and lab work was done that showed a positive urinalysis screen. Urine and blood cultures were ordered and patient was admitted for 4 PAV for treatment HOSPITAL COURSE: 1. Complicated UTI: Patient remained afebrile. Labs were order, u/a with C&S, BC ordered and CT imaging of abdomen and head were obtained. She was started in Cipro 500 mg. CBC without an elevated white count. BC negative. Urine culture with ENTEROBACTER AEROGENES. Patient remained afebrile and was anxious to return home. Abdominal CT imaging does not show any signs of pyelonephritis or any acute abdominal processes. Head CT shows chronic changes. DISCHARGE MEDICATIONS: Please see below. ALLERGIES: Please see below. PHYSICAL EXAMINATION ON DISCHARGE: VITAL SIGNS: Please see below. GENERAL: Alert and oriented to person and place, pleasant HEENT: unremarkable NECK: supple, no lymphadenopathy CARDIOVASCULAR EXAMINATION: RRR RESPIRATORY EXAMINATION: CTA ABDOMINAL EXAMINATION: obese, soft, non-tender EXTREMITIES: no edema SKIN: warm, dry, good turgor NEUROLOGICAL EXAMINATION: alert, did not appear confused today LABORATORY DATA: Please see below. IMAGING: Chest X-ray IMPRESSION: Chronic interstitial fibrosis. CT Abdomen/Pelvis 1. There is no CT evidence of pyelonephritis with homogeneous enhancement of the renal cortex on both sides except for the effect of multiple renal cysts on the left larger than right. No hydronephrosis, stone or solid mass. 2. Atherosclerotic calcification of the aorta and branches without aneurysm. 3. Small bowel loops fluid-filled without dilatation, obstruction or mass. There is no sign of colitis or diverticulitis. Old anastomotic sutures in the deep pelvis at the rectosigmoid junction, nothing acute in the colon. No ascites, perforation or free air. 4. No renal, ureteral or bladder stone. Bladder grossly unremarkable. 5. No ventral or inguinal hernia although the inguinal canal is mildly dis tended on the left with a small amount of omental fat. Bowel herniation. 6. Some old surgical changes from prior hysterectomy and surgical clips suggesting prior rectosigmoid anastomosis. Degenerative changes in the spine and hips. No other significant or acute finding. CT Head without contrast IMPRESSION: 1. Left parietal lobe encephalomalacia. 2. Small vessel ischemic disease. 3. Moderate volume loss. PROGNOSIS: Good ACTIVITY: With assistance DIET: Gluten restricted DISCHARGE PLAN: Home with services DISCHARGE INSTRUCTIONS: 1. UTI: Complete course of abx. F/U with PCP in one week DISCHARGE CONDITION: Stable Vital Signs/I&Os Vital Signs Date Time Temp Pulse Resp B/P (MAP) Pulse Ox O2 Delivery O2 Flow Rate FiO2 05/23/18 09:55 138/59 05/23/18 06:00 97.5 78 18 96 2.0 05/21/18 16:35 Nasal Cannula I&O- Last 24 Hours up to 6 AM 05/23/18 06:00 Intake Total 510 ml Output Total 425 ml Balance 85 ml Laboratory Data Labs 24H Laboratory Tests 2 05/23/18 06:09: Nucleated Red Blood Cells % (auto) 0.0, Anion Gap 5L, Glomerular Filtration Rate > 60.0, Blood Urea Nitrogen 14, Creatinine 0.78, Sodium Level 137, Potassium Level 4.2, Chloride Level 102, Carbon Dioxide Level 30, Calcium Level 8.7L CBC/BMP Laboratory Tests 05/23/18 06:09 Red Blood Count 4.17, Mean Corpuscular Volume 88.0, Mean Corpuscular Hemoglobin 27.8, Mean Corpuscular Hemoglobin Concent 31.6 L, Red Cell Distribution Width 16.1 H, Calcium Level 8.7 L Microbiology Microbiology 05/21/18 Blood Culture - Preliminary, Resulted No Growth after 48 hours. All Specime... 05/21/18 Blood Culture - Preliminary, Resulted No Growth after 48 hours. All Specime... 05/21/18 Urine Culture - Final, Complete Enterobacter Aerogenes Discharge Medications Scheduled Ascorbic Acid (Vitamin C) 500 Mg Cap, 1,000 MG PO DAILY, (Reported) Calcium Carbonate/Vitamin D3 (Calcium 600-Vit D3 400 Tablet) 1 Tab Tab, 1 TAB PO DAILY, (Reported) Ciprofloxacin HCl (Cipro) 500 Mg Tablet, 500 MG PO BID Cyanocobalamin (Vitamin B-12) (Vitamin B-12) 1,000 Mcg Tab, 1,000 MCG PO DAILY, (Reported) Donepezil Hcl (Donepezil HCl Odt) 5 Mg Tab, 5 MG PO QHS, (Reported) Escitalopram Oxalate (Escitalopram Oxalate) 10 Mg Tab, 10 MG PO DAILY, (Reported) Ipratropium/Albuterol Sulfate (Combivent Respimat 20-100 Mcg) 1 Aer Aer, 2 PUFF INH BID, (Reported) Levothyroxine Sodium (Synthroid) 25 Mcg Tab, 25 MCG PO DAILY, (Reported) Magnesium Oxide (Magnesium Oxide) 400 Mg Tab, 400 MG PO DAILY, (Reported) Memantine HCl (Memantine HCl) 5 Mg Tab, 5 MG PO BID, (Reported) Omeprazole (Omeprazole) 40 Mg Cap, 40 MG PO DAILY, (Reported) Primidone (Primidone) 50 Mg Tab, 50 MG PO DAILY, (Reported) Ramipril (Ramipril) 5 Mg Cap, 10 MG PO QAM, (Reported) Ramipril (Ramipril) 5 Mg Cap, 5 MG PO QHS, (Reported) Simvastatin (Simvastatin) 40 Mg Tab, 40 MG PO QHS, (Reported) Tiotropium [place] Monohydrate (Spiriva) 5 Inhalation/Inhaler Powd, 18 MCG INH DAILY, (Reported) [Budesonide] , PO QHS, (Reported) Allergies Coded Allergies: Penicillins (Verified Allergy, Unknown, 06/18/18) Sulfa (Sulfonamide Antibiotics) (Verified Allergy, Unknown, 06/18/18) atorvastatin (Verified Allergy, Unknown, 06/18/18) calcitonin (Verified Allergy, Unknown, 06/18/18) gluten (Verified Allergy, Unknown, NEEDS GLUTEN FREE DIET, 06/18/18) meloxicam (Verified Allergy, Unknown, 06/18/18) risedronate sodium (Verified Allergy, Unknown, 06/18/18) MINESH SALINAS May 23, 2018 11:19
== END 2018-05-23 12:30 | disposition home health service (06) | DRG 690 ==
LOC: M ED 09:13 → M ED INP 14:18 → M MSPAV 16:39
PROVIDERS: ADMIT Family Medicine; ATTEND Family Medicine
DX: N39.0 Urinary tract infection, site not specified (principal); G20 Parkinson's disease; E55.9 Vitamin D deficiency, unspecified; R73.01 Impaired fasting glucose; G47.33 Obstructive sleep apnea (adult) (pediatric); J44.9 Chronic obstructive pulmonary disease, unspecified; I10 Essential (primary) hypertension; B96.89 Other specified bacterial agents as the cause of diseases classified elsewhere; J84.10 Pulmonary fibrosis, unspecified; F32.9 Major depressive disorder, single episode, unspecified; E53.8 Deficiency of other specified B group vitamins; E78.5 Hyperlipidemia, unspecified; K90.0 Celiac disease; G31.84 Mild cognitive impairment of uncertain or unknown etiology; D64.9 Anemia, unspecified; M47.896 Other spondylosis, lumbar region; E03.9 Hypothyroidism, unspecified; K21.9 Gastro-esophageal reflux disease without esophagitis; I25.10 Atherosclerotic heart disease of native coronary artery without angina pectoris; Z90.49 Acquired absence of other specified parts of digestive tract; Z95.0 Presence of cardiac pacemaker; Z87.891 Personal history of nicotine dependence; Z79.899 Other long term (current) drug therapy

== ENCOUNTER 2018-06-18 13:50 | Emergency (ER) | payer MEDICARE, OTHER, MEDICAID ==
[~2018-06-18] VITALS: Ht 157.5 cm; Wt 81.8 kg
[~2018-06-18 13:50] MED LIST changes: +CIPR-249 PO; +MAGN400T PO; +OMEP40CA2 PO; +SIMV40TA2 PO; +TIOT18INH INH
[2018-06-18] MEDS ORDERED: BUDEPOW PO (14:32)
[2018-06-18 15:32] LABS: BASO % 0.5 % (0.0-1.0); EOS # 0.1 10^3/uL (0.0-0.50); EOS % 1.7 % (0.0-3.0); HEMATOCRIT 38.8 % (36.0-47.0); HEMOGLOBIN 12.3 g/dl (12.0-15.5); LYMPH # 1.5 10^3/uL (1.5-4.5); LYMPH % 18.9 % (24.0-44.0); MEAN CORPUSCULAR HEMOGLOBIN 27.2 pg (27.0-33.0); MEAN CORPUSCULAR HGB CONC 31.7 g/dl (32.0-36.5); MEAN CORPUSCULAR VOLUME 85.8 fl (80.0-96.0); MONO # 0.9 10^3/uL (0.0-0.8); MONO % 10.5 % (0.0-5.0); NEUTROPHILS # 5.5 10^3/uL (1.8-7.7); PLATELET COUNT, AUTOMATED 279 10^3/uL (150-450); RED BLOOD COUNT 4.52 10^6/uL (4.00-5.40); WHITE BLOOD COUNT 8.1 10^3/uL (4.0-10.0)
[2018-06-18 15:46] LABS: ALBUMIN 2.9 GM/DL (3.2-5.2); ALT/SGPT 23 U/L (12-78); AMYLASE 59 U/L (25-115); BILIRUBIN,DIRECT < 0.1 MG/DL (0.0-0.2); BILIRUBIN,TOTAL 0.3 MG/DL (0.2-1.0); BLOOD UREA NITROGEN 17 MG/DL (7-18); CALCIUM LEVEL 8.9 MG/DL (8.8-10.2); CARBON DIOXIDE LEVEL 25 MEQ/L (21-32); CHLORIDE LEVEL 102 MEQ/L (98-107); CREATININE FOR GFR 0.76 MG/DL (0.55-1.30); GLOMERULAR FILTRATION RATE > 60.0 (>39); GLUCOSE, FASTING 101 MG/DL (70-100); LIPASE 64 U/L (73-393); POTASSIUM SERUM 4.5 MEQ/L (3.5-5.1); SODIUM LEVEL 133 MEQ/L (136-145); TOTAL PROTEIN 7.8 GM/DL (6.4-8.2)
[2018-06-18 16:46] LABS: INR 1.04; PROTHROMBIN TIME 13.7 SECONDS (12.1-14.4)
[2018-06-18 16:47] LABS: PARTIAL THROMBOPLASTIN TIME 31.1 SECONDS (25.4-37.6)
[2018-06-18] MEDS ORDERED: CIPR-249 PO (16:47)
[2018-06-18 17:14] VITALS: BP 118/58
--- NOTE | 2018-06-18 21:36 | ECGEPIP ---
Stationary ECG Study [facility] - ED Test Date: 2018-06-18 Pat Name: CARMENCITA SORENSON Department: Room: - Gender: F National Account Representative: [place] : 1940 Requested By: ANSELMO Hedrick PA-C Order Number: [id number] Reading MD: Ketan Freeman Measurements Intervals [place] Rate: 69 P: 137 [place]: 237 QRS: -34 QRSD: 73 T: -22 QT: 395 QTc: 426 Interpretive Statements ELECTRONIC ATRIAL PACEMAKER LEFT AXIS DEVIATION LOW QRS VOLTAGE IN PRECORDIAL LEADS VOLTAGE CRITERIA FOR LVH POOR R WAVE PROGRESSION SIMILAR TO 05/21/18 Electronically Signed On 06-18-2018 21:36:04 EDT by Ketan Freeman
== END 2018-06-18 17:16 | disposition home or self-care (01) ==
LOC: M ED 13:50
DX: N30.00 Acute cystitis without hematuria (principal); Z87.440 Personal history of urinary (tract) infections; G30.9 Alzheimer's disease, unspecified; F02.80 Dementia in other diseases classified elsewhere, unspecified severity, without behavioral disturbance, psychotic disturbance, mood disturbance, and anxiety; E11.9 Type 2 diabetes mellitus without complications; I10 Essential (primary) hypertension; E78.5 Hyperlipidemia, unspecified; J44.9 Chronic obstructive pulmonary disease, unspecified; K90.0 Celiac disease; K21.9 Gastro-esophageal reflux disease without esophagitis; K27.9 Peptic ulcer, site unspecified, unspecified as acute or chronic, without hemorrhage or perforation; M54.9 Dorsalgia, unspecified; F32.9 Major depressive disorder, single episode, unspecified; R25.1 Tremor, unspecified; Z85.43 Personal history of malignant neoplasm of ovary; Z90.710 Acquired absence of both cervix and uterus; Z86.79 Personal history of other diseases of the circulatory system; Z95.0 Presence of cardiac pacemaker; Z90.49 Acquired absence of other specified parts of digestive tract; Z88.0 Allergy status to penicillin; Z88.2 Allergy status to sulfonamides; Z88.8 Allergy status to other drugs, medicaments and biological substances; Z91.018 Allergy to other foods; Z79.899 Other long term (current) drug therapy

== ENCOUNTER 2018-06-25 14:18 | Observation (INO) | payer MEDICARE, OTHER, MEDICAID ==
[~2018-06-25] VITALS: Ht 157.5 cm; Wt 80.0 kg
[~2018-06-25 14:18] MED LIST changes: +BUDEPOW PO
[2018-06-25] MEDS ORDERED: NITR100C2 PO (14:39)
[2018-06-25 15:33] LABS: BASO % 0.5 % (0.0-1.0); EOS # 0.1 10^3/uL (0.0-0.50); EOS % 1.5 % (0.0-3.0); HEMATOCRIT 38.7 % (36.0-47.0); HEMOGLOBIN 12.3 g/dl (12.0-15.5); LYMPH # 1.3 10^3/uL (1.5-4.5); LYMPH % 16.6 % (24.0-44.0); MEAN CORPUSCULAR HEMOGLOBIN 27.2 pg (27.0-33.0); MEAN CORPUSCULAR HGB CONC 31.8 g/dl (32.0-36.5); MEAN CORPUSCULAR VOLUME 85.6 fl (80.0-96.0); MONO # 1.1 10^3/uL (0.0-0.8); MONO % 14.1 % (0.0-5.0); NEUTROPHILS # 5.2 10^3/uL (1.8-7.7); PLATELET COUNT, AUTOMATED 273 10^3/uL (150-450); RED BLOOD COUNT 4.52 10^6/uL (4.00-5.40); WHITE BLOOD COUNT 7.8 10^3/uL (4.0-10.0)
--- NOTE | 2018-06-25 16:08 | REP ---
Chest, semi upright AP and lateral views: Comparisons are 05/21/2018, 09/17/2017 and 03/29/2016. There is chronic bilateral diffuse interstitial coarsening, unchanged from the prior studies.. This is consistent with chronic interstitial lung disease. There are no focal infiltrates. No pleural effusions. There is chronic cardiomegaly , unchanged. There is a dual-chamber pacemaker, unchanged. Impression: There are chronic findings as described. No superimposed acute cardiopulmonary findings are identified. Electronically Signed by Kendrick Cruz MD 06/25/2018 03:59 P
[2018-06-25 16:12] LABS: ALBUMIN 3.1 GM/DL (3.2-5.2); ALT/SGPT 12 U/L (12-78); BILIRUBIN,DIRECT 0.1 MG/DL (0.0-0.2); BILIRUBIN,TOTAL 0.3 MG/DL (0.2-1.0); BLOOD UREA NITROGEN 11 MG/DL (7-18); CARBON DIOXIDE LEVEL 30 MEQ/L (21-32); CHLORIDE LEVEL 100 MEQ/L (98-107); CK-MB VALUE MASS < 1.0 NG/ML (<3.6); CPK CREATINE PHOSPHOKINASE 35 U/L (26-192); CREATININE FOR GFR 0.73 MG/DL (0.55-1.30); GLOMERULAR FILTRATION RATE > 60.0 (>39); GLUCOSE, FASTING 85 MG/DL (70-100); MB/CK RELATIVE INDEX 2.86 (< OR =4); SODIUM LEVEL 135 MEQ/L (136-145); TOTAL PROTEIN 7.7 GM/DL (6.4-8.2); TROPONIN I < 0.02 NG/ML (< 0.10)
[2018-06-25 16:28] LABS: APPEARANCE, URINE CLEAR (CLEAR); BACTERIA, URINE AUTO NEGATIVE (NEGATIVE); BILIRUBIN, URINE AUTO NEGATIVE (NEGATIVE); BLOOD, URINE BLOOD NEGATIVE (NEGATIVE); COLOR, URINE YELLOW (YELLOW); GLUCOSE, URINE (UA) AUTO NEGATIVE (NEGATIVE); KETONE, URINE AUTO NEGATIVE (NEGATIVE); LEUKOCYTE ESTERASE, URINE AUTO NEGATIVE (NEGATIVE); MUCUS, URINE SMALL (NEGATIVE); NITRITE, URINE AUTO NEGATIVE (NEGATIVE); PROTEIN, URINE AUTO NEGATIVE (NEGATIVE); RBC, URINE AUTO 2 /HPF (0-3); SQUAMOUS EPITHELIAL CELL UR AU 1 /HPF (0-6); UROBILINOGEN, URINE AUTO 0.2 mg/dL (0.0-2.0); WBC, URINE AUTO 1 /HPF (0-3)
--- NOTE | 2018-06-25 17:19 | REP ---
CT Lumbar Spine without contrast HISTORY: Altered mental status COMPARISON: 04/09/2015 There is no disc bulge or herniation at the L1-2 level. The L1 nerves exit the neural foramina without compression. A diffuse disc bulge is present at the L2-3 level. There is hypertrophy of the ligamenta flava and posterior articulating facets. These findings produce mild central canal stenosis. A diffuse disc bulge is present at the L3-4 level. There is hypertrophy of the ligamenta flava and posterior articulating facets. These findings produce moderate central canal stenosis. The L3 nerves exit the neural foramina without compression. A diffuse disc bulge is present at the L4-5 level. There is hypertrophy of the ligamenta flava and posterior articulating facets. These findings produce moderate central canal stenosis. The L4 nerves exit the neural foramina without compression. A diffuse disc bulge is present at the L5-L1 level. There is minimal compression of the thecal sac. There is hypertrophy of the posterior articulating facets. There is compression of the left L5 nerve in the neural foramen. The right L5 nerve exits the neural foramen without compression. The L2-3 through 05-01 intervertebral discs are decreased in height. Vacuum phenomenon is present at the L4-5 level. These findings are consistent with disc degeneration. There is aneurysmal dilatation of the abdominal aorta measuring 2.9 cm. IMPRESSION: 1. Mild central canal stenosis at the L2-3 level secondary to disc bulge, ligamentous and facet hypertrophy. 2. Moderate central canal stenosis at the L3-4 and L4-5 levels secondary to disc bulge, ligamentous and facet hypertrophy. 3. Diffuse disc bulge at the L5-L1 level with minimal thecal sac compression. There is compression of the left L5 nerve in the neural foramen. There is no significant change compared to the previous study. Electronically Signed by Jam Pollard MD 06/25/2018 05:10 P
--- NOTE | 2018-06-25 17:19 | REP ---
CT of the brain without IV contrast: Comparison is 05/21/2018. There is no hemorrhage. There is a focal zone of encephalomalacia in the left parietal lobe posteriorly, unchanged. The cortical stripe is otherwise unremarkable. There is no edema, mass effect or midline shift. The sulci are diffusely enlarged compatible with diffuse volume loss. This is unchanged. The visualized paranasal sinuses are Impression: There is no hemorrhage, acute infarct or mass. There is a focal zone of encephalomalacia posteriorly in the left parietal lobe, unchanged. There is diffuse volume loss, unchanged. Electronically Signed by Kendrick Cruz MD 06/25/2018 05:10 P
[2018-06-25] MEDS ORDERED: SPIR1CAP INH (17:59)
[2018-06-25] MEDS ORDERED: BUDE3CAP PO (17:59)
[2018-06-25] MEDS ORDERED: VITA-144 PO (18:01)
[2018-06-25] MEDS ORDERED: B-122500 PO (18:01)
[2018-06-25] MEDS ORDERED: ACETAMINOPHEN 500 MG TAB PO PRN (18:15)
[2018-06-25] MEDS ORDERED: KCL 20MEQ in NS 1000ML 1,000 ML IV SCH (18:15)
[2018-06-25 19:46] LABS: AMYLASE 41 U/L (25-115); LIPASE 60 U/L (73-393)
[2018-06-25 20:23] VITALS: BP 112/57
--- NOTE | 2018-06-25 21:34 | HPE ---
DATE OF ADMISSION: 06/25/2018 CHIEF COMPLAINT: Abdominal pain, recent urinary tract infection. PRIMARY CARE PHYSICIAN: Dr. Galileo Adams HISTORY: The patient came in the emergency room with weakness of her legs, she has abdominal pains with intermittent chronic problems, but seems worse today. She recently had a enterobacter urinary tract infection (UTI) treated with Cipro with apparent resolution. She is unable to ambulate today and in the exam room has a abdominal pain, so was admitted for further treatment. PAST MEDICAL HISTORY: Shows Parkinsonism, prediabetes, vitamin B deficiency, obstructive sleep apnea, chronic obstructive pulmonary disease (COPD), arthritis of the spine, pulmonary fibrosis, left-sided intraparenchymal hemorrhage 2016, stroke due to left middle cerebral artery occlusion, prior depression, sinoatrial node dysfunction, status post dual-chamber pacemaker 02/23, degenerative disk disease of the cervical spine, history of peptic ulcer disease, hyperlipidemia, celiac disease, cognitive impairment, hypothyroidism, coronary artery disease, had diverticulitis in the past, status post colectomy and subsequent balloon dilatation of her stricture. SURGICAL HISTORY: Inguinal hernia repair, bowel resection, colonoscopy 2009, section times three, right cataract surgery. FAMILY HISTORY: Noncontributory. SOCIAL HISTORY: Quit smoking two years ago. Lives with her , who is caregiver. ALLERGIES: PENICILLIN, SULFA, ATORVASTATIN, CALCITONIN, GLUTEN MELOXICAM, RISEDRONATE. MEDICATIONS: - Combivent inhaler 1 puff four times a day as needed - vitamin C - budesonide EC 3 mg by mouth at bedtime (q.h.s.) - vitamin D3 2000 units daily - vitamin B12 5000 units daily - Aricept 5 mg daily - Lexapro 10 mg daily - levothyroxine 25 mcg daily - magnesium oxide 40 mg daily - Namenda 5 mg twice a day - omeprazole 40 mg daily - primidone 50 mg daily - ramipril 5 mg twice a day - simvastatin 40 mg daily - Spiriva inhalation daily REVIEW OF SYSTEMS: No rectal bleeding, hematemesis, no fever, no chills. No frequency, urgency or dysuria. PHYSICAL EXAMINATION: Vital signs: As per flow sheet. General appearance: Elderly, frail, lying in bed. She felt weak, sitting up to be examined. Pupils equal, round, reactive. Tympanic membranes normal. Pharynx shows some dry mucous membranes. Neck is supple. Lungs clear. Heart: Rhythm regular. Abdomen: Soft, tender in left lower abdomen. No guard, rebound or referred pain. Extremities: No clubbing, cyanosis or edema. Normal strength in the arms and muscle strength of the legs was normal. LABORATORY: Complete blood count (CBC) within normal limits. Comprehensive metabolic panel (CMP) unremarkable. Lactic acid normal. Urinalysis looks negative. IMPRESSION: 1. Abdominal pain. Etiology is unknown. I believe this is intermittently a problem for her. She recently underwent a CT scan of the abdomen and pelvis, 05/21/2018. I reviewed the report. I do not want repeat the CT scan to minimize radiation exposure, will just observe overnight. She has abdominal pain, bolus IV fluids have been ordered. 2. Previous urinary tract infection (UTI). Urine looks negative. 3. History of some dementia. Aricept and Namenda to be continued. 4. Hypertension. Continue current medications. 5. Hyperlipidemia. Continue her statin therapy.
[2018-06-25] MEDS: BUDESONIDE EC 3 MG CAP (ENTOCORT EC) PO SCH (21:43)
[2018-06-25] MEDS: DONEPEZIL 5 MG TAB PO SCH (21:44)
[2018-06-25] MEDS: MEMANTINE 5MG TABLET (NAMENDA) PO SCH (21:44)
[2018-06-25] MEDS: SIMVASTATIN 40 MG TAB PO SCH (21:44)
[2018-06-25] MEDS: RAMIPRIL 5 MG CAP PO SCH (21:46)
[2018-06-26 02:00] VITALS: BP 101/55
[2018-06-26 06:00] VITALS: BP 108/52
[2018-06-26] MEDS: LEVOTHYROXINE 25MCG TABLET (0.025MG) PO SCH (06:13)
[2018-06-26 06:37] LABS: HEMATOCRIT 35.7 % (36.0-47.0); MEAN CORPUSCULAR HEMOGLOBIN 26.7 pg (27.0-33.0); MEAN CORPUSCULAR HGB CONC 30.8 g/dl (32.0-36.5); MEAN CORPUSCULAR VOLUME 86.7 fl (80.0-96.0); PLATELET COUNT, AUTOMATED 266 10^3/uL (150-450); RED BLOOD COUNT 4.12 10^6/uL (4.00-5.40); WHITE BLOOD COUNT 8.2 10^3/uL (4.0-10.0)
[2018-06-26 06:57] LABS: BLOOD UREA NITROGEN 10 MG/DL (7-18); CALCIUM LEVEL 8.5 MG/DL (8.8-10.2); CARBON DIOXIDE LEVEL 28 MEQ/L (21-32); CHLORIDE LEVEL 104 MEQ/L (98-107); CREATININE FOR GFR 0.76 MG/DL (0.55-1.30); GLOMERULAR FILTRATION RATE > 60.0 (>39); GLUCOSE, FASTING 91 MG/DL (70-100); SODIUM LEVEL 138 MEQ/L (136-145)
[2018-06-26] MEDS: TIOTROPIUM INHALER/CAPSULE (SPIRIVA) INH SCH (08:05)
[2018-06-26] MEDS: VITAMIN D 1,000 INTERNATIONAL UNITS TABLET PO SCH (08:16)
[2018-06-26] MEDS: ASCORBIC ACID 500 MG TAB PO SCH (08:16)
[2018-06-26] MEDS: OMEPRAZOLE 20 MG CAP PO SCH (08:17)
[2018-06-26] MEDS: ESCITALOPRAM OXALATE 10 MG TAB (LEXAPRO) PO SCH (08:17)
[2018-06-26] MEDS: CYANOCOBALAMIN 500 MCG TAB PO SCH (08:17)
[2018-06-26] MEDS: MEMANTINE 5MG TABLET (NAMENDA) PO SCH ×2 (08:17→21:14)
[2018-06-26] MEDS: MAGNESIUM OXIDE 400 MG TAB (MAG-OX) PO SCH (08:17)
[2018-06-26] MEDS: PRIMIDONE 50 MG TAB PO SCH (08:17)
[2018-06-26] MEDS: ENOXAPARIN 40 MG/0.4 ML SYRINGE (J1650) SC SCH (08:18)
[2018-06-26] MEDS: RAMIPRIL 5 MG CAP PO SCH ×2 (09:00→21:15)
[2018-06-26 10:00] VITALS: BP 122/57
--- NOTE | 2018-06-26 10:21 | IPNPDOC ---
Subjective Date Seen The patient was seen on 06/26/18. Subjective Chief Complaint/HPI weakness, abd pain Events since last encounter Admitted yesterday for weakness, abdominal pain. abdominal pain is chronic, but has progressed. Has had increased weakness. sister states patient expressed that she doesn't want to live any more and has shown progressive decline. Constitutional: Denies: Chills, Fever, Night Sweats Pulmonary: Reports: Other Symptoms (on chronic oxygen at home 2LNC); Denies: Dyspnea, Cough Cardiovascular: Denies: Chest Pain, Palpitations, Orthopnea, Paroxysmal Noc. Dyspnea, Lt Headedness Gastrointestinal: Reports: Abdominal Pain Objective Physical Examination General Exam: Positive: Alert, Cooperative Chest Exam: Positive: Clear to auscultation, Normal air movement Heart Exam: Positive: Rate Normal, Regular Rhythm Abdomen Exam: Positive: Normal bowel sounds, Tenderness (throughout) Psych Exam: Positive: Mood NL, Other (flat affect) Assessment /Plan Problems (1) Abdominal pain Status: Chronic Problem Text: acute on chronic. Eval abdominal film today. (2) Physical deconditioning Status: Acute (3) Cerebrovascular disease (4) Dementia Status: Chronic Problem Text: progressive decline noted by family. sister expressed interest in hospice vs palliative care. I offered chance at conversation with patient and . sister would like to have the conversation first and let us know decision. (5) Hypertension Status: Chronic (6) COPD (chronic obstructive pulmonary disease) Status: Chronic (7) Hyperlipidemia Status: Chronic (8) Hypothyroidism Status: Chronic (9) GERD (gastroesophageal reflux disease) Status: Chronic (10) Parkinsons disease Status: Chronic Plan/VTE VTE Prophylaxis Ordered?: Yes (Lovenox) VS, I&O, 24H, Fishbone Vital Signs/I&O Vital Signs Date Time Temp Pulse Resp B/P (MAP) Pulse Ox O2 Delivery O2 Flow Rate FiO2 06/26/18 10:00 97.5 70 18 122/57 (78) 100 2.0 06/25/18 19:24 Nasal Cannula I&O- Last 24 Hours up to 6 AM 06/26/18 06:00 Intake Total 980 ml Output Total 0 ml Balance 980 ml Laboratory Data 24H LABS Laboratory Tests 2 06/25/18 15:24: Immature Granulocyte % (Auto) 0.3, White Blood Count 7.8, Red Blood Count 4.52, Hemoglobin 12.3, Hematocrit 38.7, Mean Corpuscular Volume 85.6, Mean Corpuscular Hemoglobin 27.2, Mean Corpuscular Hemoglobin Concent 31.8L, Red Cell Distribution Width 15.7H, Platelet Count 273, Neutrophils (%) (Auto) 67.0H, Lymphocytes (%) (Auto) 16.6L, Monocytes (%) (Auto) 14.1H, Eosinophils (%) (Auto) 1.5, Basophils (%) (Auto) 0.5, Neutrophils # (Auto) 5.2, Lymphocytes # (Auto) 1.3L, Monocytes # (Auto) 1.1H, Eosinophils # (Auto) 0.1, Basophils # (Auto) 0.0, Nucleated Red Blood Cells % (auto) 0.0, Anion Gap 5L, Glomerular Filtration Rate > 60.0, Lactic Acid Level 1.1, Calcium Level 9.0, Aspartate Amino Transf (AST/SGOT) 12, Alanine Aminotransferase (ALT/SGPT) 12, Alkaline Phosphatase 48, Total Bilirubin 0.3, Direct Bilirubin 0.1, Ammonia 10, Total Creatine Kinase 35, Creatine Kinase MB < 1.0, Creatine Kinase MB Relative Index 2.86, Troponin I < 0.02, Total Protein 7.7, Albumin 3.1L, Albumin/Globulin Ratio 0.67L, Amylase Level 41, Lipase 60L, Thyroid Stimulating Hormone (TSH) 1.290 06/25/18 15:28: Bedside Glucose (Misc Panel) 85 06/25/18 16:13: Urine Appearance CLEAR, Urine Color YELLOW, Urine pH 6.0, Urine Specific [place] 1.010, Urine Protein NEGATIVE, Urine Glucose (UA) NEGATIVE, Urine Ketones NEGATIVE, Urine Urobilinogen 0.2, Urine Bilirubin NEGATIVE, Urine Leukocyte Esterase NEGATIVE, Urine Blood NEGATIVE, Urine Nitrite NEGATIVE, Urine WBC (A uto) 1, Urine RBC (Auto) 2, Urine Hyaline Casts (Auto) 0, Urine Bacteria (Auto) NEGATIVE, Urine Squamous Epithelial Cells 1, Urine Mucus (Auto) SMALL, Urine Sperm (Auto) 06/26/18 05:16: Nucleated Red Blood Cells % (auto) 0.0, Anion Gap 6L, Glomerular Filtration Rate > 60.0, Calcium Level 8.5L, Blood Urea Nitrogen 10, Creatinine 0.76, Sodium Level 138, Potassium Level 4.0, Chloride Level 104, Carbon Dioxide Level 28 CBC/BMP Laboratory Tests 06/25/18 15:24 Red Blood Count 4.52, Mean Corpuscular Volume 85.6, Mean Corpuscular Hemoglobin 27.2, Mean Corpuscular Hemoglobin Concent 31.8 L, Red Cell Distribution Width 15.7 H, Neutrophils (%) (Auto) 67.0 H, Lymphocytes (%) (Auto) 16.6 L, Monocytes (%) (Auto) 14.1 H, Eosinophils (%) (Auto) 1.5, Basophils (%) (Auto) 0.5, Neutrophils # (Auto) 5.2, Lymphocytes # (Auto) 1.3 L, Monocytes # (Auto) 1.1 H, Eosinophils # (Auto) 0.1, Basophils # (Auto) 0.0 06/26/18 05:16 Red Blood Count 4.12, Mean Corpuscular Volume 86.7, Mean Corpuscular Hemoglobin 26.7 L, Mean Corpuscular Hemoglobin Concent 30.8 L, Red Cell Distribution Width 15.7 H, Calcium Level 8.5 L Microbiology Microbiology 06/25/18 Blood Culture, Received Pending Jenna Obregon [facility] Jun 26, 2018 10:20
--- NOTE | 2018-06-26 13:35 | REP ---
KUB TWO VIEWS: HISTORY: Abdominal pain. A small amount of air is present in the intestine. There are no air fluid levels or dilated loops of intestine. There is no pneumoperitoneum. Surgical clips are present in the pelvis. IMPRESSION: Nonspecific bowel gas pattern. Electronically Signed by Jam Pollard MD 06/26/2018 02:02 P
[2018-06-26 14:00] VITALS: BP 134/60
[2018-06-26] MEDS: GASTROGRAFIN SOLUTION 30ML PO SCH ×2 (14:30→15:00)
[2018-06-26] MEDS ORDERED: ISOVUE-370 76% 100ML VIAL (Q9967) As Ordered ONE (15:41)
--- NOTE | 2018-06-26 17:04 | REP ---
HISTORY: Abdominal pain. COMPARISON: 05/21/2018, a contrast enhanced examination. Today's examination was performed after a small amount of oral bowel preparatory contrast. Intravenous contrast was withheld, as per the order. There is significant motion artifact in the lung bases, however, chronic changes, stable from the prior exam are suspected. The exam is limited without intravenous contrast. Artifact from the patient's upper extremities and from respiratory motion are seen throughout the exam. Limited evaluation of the solid intraabdominal organs and gallbladder show no gross changes from the prior exam. Limited evaluation of the kidneys, adrenal glands and pancreas show no gross abnormalities or significant changes from the prior exam. There are renal cysts, status quo. Limited evaluation of the bowel loops show multiple prominent fluid and gas filled small bowel loops without roselyn dilatation or evidence of intestinal obstruction. There is no gross free fluid or free air in the abdomen. Limited evaluation of the abdominal aorta and periaortic regions show no significant changes from the prior exam. There is calcific atherosclerotic change seen in the abdominal aorta with mural thrombus formation. CT PELVIS: There is a large amount of content in the rectal vault which has increased from the prior exam. Fecal impaction cannot be ruled out. No free fluid or free air is seen in the pelvis. There is no evidence of a pelvic mass or adenopathy. Bone window technique throughout the exam shows chronic osseous changes, status quo. IMPRESSION: 1. Exam limitations as described above. 2. Possible small bowel ileus and possible fecal impaction as described above. 3. Other findings and chronic changes as described above. Electronically Signed by Immanuel Kee DO 06/27/2018 12:04 P
[2018-06-26 18:00] VITALS: BP 130/58
[2018-06-26] MEDS: BUDESONIDE EC 3 MG CAP (ENTOCORT EC) PO SCH (21:14)
[2018-06-26] MEDS: SIMVASTATIN 40 MG TAB PO SCH (21:14)
[2018-06-26] MEDS: DONEPEZIL 5 MG TAB PO SCH (21:15)
--- NOTE | 2018-06-26 21:20 | ECGEPIP ---
Stationary ECG Study [facility] - ED Test Date: 2018-06-25 Pat Name: CARMENCITA SORENSON Department: Room: - Gender: F Rate Quoting Operator: : 1940 Requested By: VERONICA POST Order Number: [id number] Reading MD: Leia Monroy Measurements Intervals Mina Rate: 69 P: 119 OR: 225 QRS: -31 QRSD: 88 T: -20 QT: 399 QTc: 430 Interpretive Statements ELECTRONIC ATRIAL PACEMAKER MARKED LEFT AXIS DEVIATION LOW QRS VOLTAGE IN PRECORDIAL LEADS LEFT VENTRICULAR HYPERTROPHY AND ST-T CHANGE SIMILAR 06/18/18 Electronically Signed On 06-26-2018 21:20:08 EDT by Leia Monroy
[2018-06-26 22:00] VITALS: BP 114/57
[2018-06-27 02:00] VITALS: BP 119/57
[2018-06-27] MEDS: LEVOTHYROXINE 25MCG TABLET (0.025MG) PO SCH (05:34)
[2018-06-27 06:00] VITALS: BP 122/64
[2018-06-27 06:36] LABS: HEMATOCRIT 35.4 % (36.0-47.0); HEMOGLOBIN 11.1 g/dl (12.0-15.5); MEAN CORPUSCULAR HEMOGLOBIN 27.3 pg (27.0-33.0); MEAN CORPUSCULAR HGB CONC 31.4 g/dl (32.0-36.5); PLATELET COUNT, AUTOMATED 282 10^3/uL (150-450); RED BLOOD COUNT 4.07 10^6/uL (4.00-5.40); WHITE BLOOD COUNT 7.4 10^3/uL (4.0-10.0)
[2018-06-27] MEDS ORDERED: FLEET ENEMA PR PRN (06:45)
[2018-06-27 06:57] LABS: BLOOD UREA NITROGEN 9 MG/DL (7-18); CALCIUM LEVEL 8.6 MG/DL (8.8-10.2); CARBON DIOXIDE LEVEL 28 MEQ/L (21-32); CHLORIDE LEVEL 103 MEQ/L (98-107); GLOMERULAR FILTRATION RATE > 60.0 (>39); GLUCOSE, FASTING 89 MG/DL (70-100); POTASSIUM SERUM 4.2 MEQ/L (3.5-5.1); SODIUM LEVEL 137 MEQ/L (136-145)
[2018-06-27] MEDS: TIOTROPIUM INHALER/CAPSULE (SPIRIVA) INH SCH (07:48)
[2018-06-27] MEDS ORDERED: BISACODYL 10 MG SUPP PR PRN (08:00)
--- NOTE | 2018-06-27 08:46 | CR ---
DATE OF CONSULTATION: 06/27/2018 CONSULTING PROVIDER: Dr. Sergio Troy REASON FOR CONSULTATION: Abdominal pain. HISTORY OF PRESENT ILLNESS: This is a 78-year-old female who was admitted to the hospital on 06/25/2018 for a chief complaint of abdominal pain. She has had intermittent abdominal pain for a while, however, it seemed worse. She had recently had an Enterobacter urinary tract infection that was treated with ciprofloxacin. Most of the history is obtained from the patient's sister who was at bedside. This sister is one of the caregivers as the patient does have parkinsonism. She does not know when the last time the patient has had a bowel movement. History is difficult to obtain as the patient is minimally verbally responsive. She has had chronic abdominal pain, and the family has put in a hospice consult. REVIEW OF SYSTEMS: Unable to obtain as the patient is minimally verbally responsive. PAST MEDICAL HISTORY: Parkinsonism. Prediabetes. Vitamin B deficiency. Obstructive sleep apnea. Chronic obstructive pulmonary disease (COPD). Arthritis of the spine. Pulmonary fibrosis. Left-sided intraparenchymal hemorrhage in 2016. Stroke due to a left middle cerebral artery occlusion. Prior depression. Sinoatrial node dysfunction. She is status post dual-chamber pacemaker in 2013. Degenerative disc disease of the cervical spine. History of peptic ulcer disease. Hyperlipidemia. Celiac disease. Cognitive impairment. Hypothyroidism. Coronary disease. History of diverticulitis, status post colectomy and subsequent balloon dilatation of her stricture at approximately 12 years ago. SURGICAL HISTORY: Inguinal hernia repair. Bowel resection 12 years ago. Colonoscopy in 2009. times three. Right cataract surgery. FAMILY HISTORY: Noncontributory. SOCIAL HISTORY: She quit smoking 2 years ago. She lives with her who is one of her caregivers. No alcohol or drug use. ALLERGIES: 1. PENICILLIN. 2. SULFA DRUGS. 3. ATORVASTATIN. 4. CALCITONIN. 5. Gluten. 6. MELOXICAM. 7. RISEDRONATE. CURRENT MEDICATIONS: - vitamin C 1000 mg daily - vitamin D 2000 units daily by mouth - vitamin B12 5000 mcg daily - Lexapro 10 mg daily - magnesium oxide 400 mg daily - Prilosec 40 mg daily - primidone 50 mg daily - Spiriva HandiHaler one inhalation daily - Lovenox 40 mg daily subcu - Synthroid 25 mcg daily - budesonide 3 mg by mouth at bedtime - Zocor 40 mg by mouth at bedtime - Aricept 5 mg by mouth at bedtime - memantine 5 mg by mouth twice a day - ramipril 5 mg by mouth twice a day - Tylenol 1000 mg every 6 hours as needed PHYSICAL EXAMINATION: VITALS: Temperature 97.8, pulse is 72 and regular, respiratory rate 20, blood pressure 122/64, pulse ox 94% on room air. GENERAL: Elderly appearing female in no acute distress, she watches as I examine her, but does not verbalize much. HEENT: There is no scleral icterus. Mucous membranes are moist. Head is atraumatic, normocephalic. NECK: Supple, no masses. LUNGS: Clear to auscultation bilaterally. No wheezes, rhonchi or rales. HEART: Regular rate and rhythm. No murmurs, gallops or rubs. ABDOMEN: Obese with normal bowel sounds in the upper quadrants bilaterally, hypoactive bowel sounds in the lower quadrants bilaterally. She does have some significant pain to palpation of the lower quadrants bilaterally where she scrunches her face up. She does not make these facial movements upon palpation of the upper quadrants bilaterally. LOWER EXTREMITIES: No edema or swelling is noticed bilaterally. NEURO: The patient is minimally verbally responsive. She is able to move her extremities freely and is making appropriate facial expressions in response to pain. LABORATORY DATA: CBC: WBC 7.4, hemoglobin 11.1, hematocrit 35.4, platelets 282. Chemistry: Sodium 137, potassium 4.2, chloride 103, carbon dioxide 28, BUN 9, creatinine 0.70, fasting glucose 89, calcium is 8.6. Microbiology: Blood culture is negative after 24 hours. IMAGING: CT of abdomen and pelvis done yesterday with oral contrast shows a large amount of fecal content in the rectal vault but no evidence of obstruction and no dilatation of the bowel loops. ASSESSMENT/PLAN: This is a 78-year-old female who was admitted for abdominal pain, most likely secondary to chronic constipation. The patient's family does not wish to pursue aggressive measures such as surgery. We have ordered some suppositories and enemas. We will continue to observe. My faculty preceptor for this patient encounter was physically present during the encounter and was fully available. All aspects of the patient interview, examination, medical decision making process, and medical care plan development were reviewed and approved by the faculty preceptor. The faculty preceptor is aware and concurs with the plan as stated in the body of this note and will attest to such by his/her co-signature.
[2018-06-27] MEDS ORDERED: BISACODYL 10 MG SUPP PR SCH (09:00)
[2018-06-27] MEDS: CYANOCOBALAMIN 500 MCG TAB PO SCH (09:00)
[2018-06-27] MEDS ORDERED: DOCUSATE SODIUM 100 MG CAP PO SCH (09:00)
[2018-06-27] MEDS: OMEPRAZOLE 20 MG CAP PO SCH (09:56)
[2018-06-27] MEDS: VITAMIN D 1,000 INTERNATIONAL UNITS TABLET PO SCH (09:57)
[2018-06-27] MEDS: ESCITALOPRAM OXALATE 10 MG TAB (LEXAPRO) PO SCH (09:57)
[2018-06-27] MEDS: ASCORBIC ACID 500 MG TAB PO SCH (09:57)
[2018-06-27] MEDS: MAGNESIUM OXIDE 400 MG TAB (MAG-OX) PO SCH (09:57)
[2018-06-27 09:58] VITALS: BP 124/62
[2018-06-27] MEDS: RAMIPRIL 5 MG CAP PO SCH (09:58)
[2018-06-27] MEDS: MEMANTINE 5MG TABLET (NAMENDA) PO SCH (09:58)
[2018-06-27] MEDS: ENOXAPARIN 40 MG/0.4 ML SYRINGE (J1650) SC SCH (09:58)
[2018-06-27 10:00] VITALS: BP 119/56
[2018-06-27] MEDS ORDERED: BISA10SU2 PR (10:23)
[2018-06-27] MEDS ORDERED: COLA100C5 PO (10:23)
[2018-06-27] MEDS: PRIMIDONE 50 MG TAB PO SCH (11:52)
--- NOTE | 2018-06-27 12:40 | DSES ---
DATE OF ADMISSION: 06/25/2018 DATE OF DISCHARGE: 06/27/2018 PRIMARY CARE PROVIDER: Galileo Adams MD ATTENDING PHYSICIAN: Sergio Troy MD HISTORY: This is a 78-year-old female patient who resides at home with her with over 100 hours of care from Caregivers, who presented to [facility] with concern for abdominal pain, generalized weakness. She had been treated as an outpatient recently with Cipro for Enterobacter urinary tract infection. Had some improvement, although then declined again. She was evaluated in the emergency room for abdominal pain. Underwent a CT scan of the abdomen and pelvis back in May for the same pain, which was negative. The patient was given some intravenous (IV) fluids overnight and monitored. General surgery consulted and recommended advanced bowel care, as the family is not interested in any aggressive measures in regard to care. Ultimately, a repeat CT scan was obtained on 06/26/2018, which recommended a large amount of stool in the rectal vault, increased from prior examination. Fecal impaction is not ruled out. She has had suppositories placed. Possible small bowel ileus. Her bowel care has been advanced during her hospitalization. Anticipating that she has a bowel movement, she will be discharged home later today on her routine at-home medications with increased bowel care. Her discharge diagnoses include: 1. Abdominal pain with chronic constipation. 2. Physical deconditioning. 3. Cerebrovascular disease. 4. Advanced dementia. 5. Hypertension. 6. Chronic obstructive pulmonary disease (COPD). 7. Gastroesophageal reflux disease. 8. Parkinson disease. DISCHARGE MEDICATIONS: Include: - bisacodyl 10 mg suppository twice daily as needed for constipation - Colace 100 mg by mouth twice a day - vitamin C 1000 mg by mouth daily - budesonide 3 mg by mouth nightly - vitamin D3 2000 units by mouth daily - B12 5000 mcg by mouth daily - donepezil 5 mg by mouth nightly - Lexapro 10 mg by mouth daily - Combivent 20/100 one puff four times daily as needed for shortness of breath - levothyroxine 25 mcg daily - magnesium oxide 400 mg daily - memantine 5 mg by mouth twice a day - omeprazole 40 mg daily - primidone 50 mg by mouth daily - ramipril 10 mg by mouth in the morning and 5 mg in the evening - simvastatin 40 mg by mouth daily - Spiriva one inhalation daily DISCHARGE PLAN: Will be to discharge home. She will have a Hospice consult set up for her at home. Her activity is as tolerated. Her diet is [id number] gluten-free. edited: 06/28/2018 0730 isatu HENNESSY
[2018-06-27 14:00] VITALS: BP 120/60
== END 2018-06-27 14:42 | disposition home or self-care (01) ==
LOC: EDBD 14:18 → M ED 14:18 → M ED INP 18:04 → CMPBEDREQ 18:06 → M MSPAV 20:15
PROVIDERS: ADMIT Family Medicine; ATTEND Family Medicine
DX: R10.84 Generalized abdominal pain (principal); K59.09 Other constipation; R53.81 Other malaise; I67.9 Cerebrovascular disease, unspecified; F03.90 Unspecified dementia, unspecified severity, without behavioral disturbance, psychotic disturbance, mood disturbance, and anxiety; I10 Essential (primary) hypertension; J44.9 Chronic obstructive pulmonary disease, unspecified; K21.9 Gastro-esophageal reflux disease without esophagitis; G20 Parkinson's disease; Z79.51 Long term (current) use of inhaled steroids; R73.03 Prediabetes; E53.8 Deficiency of other specified B group vitamins; Z95.0 Presence of cardiac pacemaker; E78.49 Other hyperlipidemia; E03.9 Hypothyroidism, unspecified; I25.10 Atherosclerotic heart disease of native coronary artery without angina pectoris; Z87.891 Personal history of nicotine dependence; Z88.0 Allergy status to penicillin; Z88.2 Allergy status to sulfonamides; Z88.8 Allergy status to other drugs, medicaments and biological substances
CPT/HCPCS: 36415; 70450; 71046; 72131; 74018; 74176; 80048; 80076; 81001; 82140; 82150; 82550; 82553; 83605; 83690; 84443; 84484; 85025; 85027; 87040; 93005; 93041; 94640; 94760; 96360; 96361; 96372; 99285; G0378; J1650; Q9963